=== PATIENT | male | born 1975 | race Caucasian/White ===

== ENCOUNTER 2020-02-09 09:58 | Outpatient (REF) | payer MEDICAID, SELFPAY | END 2020-02-09 09:59 | disposition home or self-care (01) | LOC: HO.LAB 09:58 | PROVIDERS: PCP Internal Medicine; Visit Provider Internal Medicine | DX: Z20.828 Contact with and (suspected) exposure to other viral communicable diseases (principal) | CPT/HCPCS: C9803; U0003 ==

== ENCOUNTER 2021-05-22 04:35 | Emergency (ER) | payer MEDICAID, SELFPAY ==
--- NOTE | 2021-05-22 04:46 | ECG_ITS ---
Test Reason : CHEST PAIN Blood Pressure : / mmHG Vent. Rate : 043 BPM Atrial Rate : 043 BPM P-R Int : 138 ms QRS Dur : 100 ms QT Int : 476 ms P-R-T Axes : 069 055 070 degrees QTc Int : 402 ms Marked sinus bradycardia ST elevation consider inferior injury or acute infarct ACUTE SC / STEMI Consider right ventricular involvement in acute inferior infarct Abnormal ECG No previous ECGs available Referred By: Tiarra Kwong Electronically Signed By:MINAL SMITH
[2021-05-22 04:48] VITALS: BMI 38.0
--- NOTE | 2021-05-22 04:58 | PC.NURSE ---
CALL OUT TO [facility] CRISIS MENTAL HEALTH THERAPIST @[id number]
[2021-05-22] MEDS: Heparin Sodium,Porcine 5,000 UNIT/ML VIAL 4000 UNIT IVPUSH (05:03)
[2021-05-22] MEDS: Aspirin Enteric Coated 81 MG TABLET.DR 324 MG PO (05:04)
[2021-05-22 05:05] VITALS: BP 172/95; PULSE 54; RESP 18
[2021-05-22 05:05] LABS: MANUAL DIFF FLAG NO
[2021-05-22 05:06] LABS: Basophils Absolute Auto 0.1 X10*3/uL (0.0-0.2); Basophils Percent Auto 1.1 % (0-2); Eosinophils Absolute Auto 0.3 X10*3/uL (0.0-0.4); Eosinophils Percent Auto 3.1 % (0-4); Hemoglobin 14.9 g/dl (14.0-18.0); Imm Gran Abs Auto 0.04 X10*3/uL (0.00-0.03); Imm Gran Pct Auto 0.4 % (0.0-0.4); Lymphocytes Absolute Auto 3.5 X10*3/uL (1.2-4.9); Lymphocytes Percent Auto 32.9 % (20-40); Mean Corpuscular HGB Conc 33.1 g/dl (31.0-36.0); Mean Corpuscular Hemoglobin 31.8 pg (27.0-33.0); Mean Corpuscular Volume 96.2 fL (80.0-98.0); Monocytes Absolute Auto 0.9 X10*3/uL (0.1-1.2); Monocytes Percent Auto 8.1 % (2-11); Neutrophils Absolute Auto 5.7 x10*3/uL (2.0-8.3); Neutrophils Percent Auto 54.4 % (45-73); Platelet Count 376 X10*3/uL (160-400); Red Blood Count 4.68 X10*6/uL (4.60-5.80); White Blood Count 10.5 X10*3/uL (4.8-10.8)
--- NOTE | 2021-05-22 05:08 | ED_ITS ---
HPI - Chest Pain General Chief Complaint: Chest Pain Stated Complaint: chest pain Time Seen by Provider: 05/22/21 04:46 Source: patient and family (Spouse) Mode of arrival: ambulatory Limitations: no limitations History of Present Illness HPI narrative: 45-year-old male history of hypertension use propanolol and lisinopril for high blood pressure, woke up at 04:30 with severe mid chest pain radiating to his left shoulder pain is intermittent, described as moderate 7/10, intermittent, nothing aggravate the pain or relieves the pain, no difficulty breathing with the, patient admitted to occasional use of cocaine last time was a week ago but nothing recently. No family history of heart attacks. Patient also had some epigastric chest pain thought to be his GERD symptoms, patient was evaluated by his PCP had a normal EKG. On arrival to the ED patient had an EKG indicating ST elevation ID in the inferior leads, patient was given aspirin/bolus of heparin/Brilinta. Patient has 1/10 chest pain now, no shortness of breath. The case was discussed with Dr. Vera who activated the cardiac catheterization at [facility] patient is getting ready to be transferred to cardiac catheterization at [facility]. Related Data Allergies Allergy/AdvReac Type Severity Reaction Status Date / Time No Known Allergies Allergy Unverified 09/07/20 15:05 [No Known Allergies*] Review of Systems Review of Systems: All other systems are reviewed and are negative Constitutional: Reports as per HPI and Reports no additional constitutional complaints Eyes: Reports as per HPI and Reports no additional eye complaints Reports system reviewed and no additional complaints, except as documented Cardiovascular: Reports as per HPI and Reports no additional cardiovascular co mplaints Respiratory: Reports as per HPI and Reports no additional respiratory complaints Gastrointestinal: Reports as per HPI and Reports no additional gastrointestinal complaints Genitourinary: Reports no additional female genitourinary complaints Musculoskeletal: Reports no additional musculoskeletal complaints Skin/Breast: Reports system reviewed and no additional complaints, except as docu Psychiatric: Reports no additional psychiatric complaints Endocrine: Reports no additional endocrine complaints Hematologic/Lymphatic: Reports no additional hematologic/lymphatic complaints Allergic/Immunologic: Reports no additional allergic/immunologic complaints Reports system reviewed and no additional complaints, except as documented and Reports Abnormal speech present [facility] Social History Social History Advance Directives: No Physical Exam Vital Signs: Vital Signs: Last Vital Signs Temp 97.3 F 05/22/21 05:10 Pulse 51 05/22/21 05:10 Resp 51 H 05/22/21 05:10 BP 174/90 H 05/22/21 05:10 Pulse Ox 97 05/22/21 05:10 BMI result Body Mass Index 38.0 Vital signs have been reviewed as appeared to be correct. Blood pressure elevated. Heart rate bradycardia. Respiration rate normal. Temperature normal. Oxygen saturation normal. Appearance: Alert. Oriented X3. No acute distress. Anxious Head: Normal external exam. Normocephalic. Atraumatic. No Gerard signs noted. No raccoon eyes noted Eyes: PERRLA. EOMI. Conjunctiva and sclera normal. Eyelids normal. ENT: TM's Normal. Pharynx normal. Uvula midline. Moist mucous membranes. No trismus noted. No drooling noted. No muffled voice noted. Neck: Normal inspection. Neck supple. FROM. No adenopathy. Thyroid Normal. No meningeal signs. No neck mass noted. CVS: Normal heart rate and rhythm. Heart sound normal. No murmurs noted. Pulses normal throughout. Respiratory: No respiratory distress. Painless inspiration. Breath sounds normal. No wheezes/rales/rhonchi noted. Chest nontender. No accessory muscle usage noted or decreased air movement noted. Abdomen: Soft and nontender. Bowel sounds normal in all 4 quadrants. No distention noted. No organomegaly noted. No visible injury noted. Back: No CVA tenderness. Full range of motion noted. Skin: Skin warm and dry. Normal skin color. Normal skin turgor. No rashes/lesions/lacerations noted. Extremities: No lower extremity edema. Extremities exhibit normal range of motion. Extremities nontender. Neuro: Oriented X 3. Cranial nerve exam: II-XII are grossly intact No motor deficit. No sensory deficit. Reflexes normal. Course Course Course Narrative: Assessment and plan. Acute STEMI, received aspirin, heparin, Brilinta, patient has been accepted to cardiac catheterization at [facility]. Patient at the transfer has 1/10 chest pain. Reevaluation(s) Reevaluation #1: Leaving the emergency department now to the cardiac catheterization at [facility] Time: 05:20 MDM - Chest Pain Lab Data Result diagrams: 05/22/21 04:59 05/22/21 04:59 Labs: Lab Results 05/22/21 Range/Units 04:59 WBC 10.5 (4.8-10.8) X10*3/uL RBC 4.68 (4.60-5.80) X10*6/uL Hgb 14.9 (14.0-18.0) g/dl Hct 45.0 (42.0-52.0) % MCV 96.2 (80.0-98.0) fL MCH 31.8 (27.0-33.0) pg MCHC 33.1 (31.0-36.0) g/dl RDW 13.0 (11.0-16.0) % Plt Count 376 (160-400) X10*3/uL MPV 11.0 (9.4-12.4) fL Immature Gran % (Auto) 0.4 (0.0-0.4) % Neut % (Auto) 54.4 (45-73) % Lymph % (Auto) 32.9 (20-40) % [place] % (Auto) 8.1 (2-11) % Eos % (Auto) 3.1 (0-4) % Baso % (Auto) 1.1 (0-2) % Lymph # (Auto) 3.5 (1.2-4.9) X10*3/uL [place] # (Auto) 0.9 (0.1-1.2) X10*3/uL Eos # (Auto) 0.3 (0.0-0.4) X10*3/uL Baso # (Auto) 0.1 (0.0-0.2) X10*3/uL Abs Immat Gran (auto) 0.04 H (0.00-0.03) X10*3/uL Absolute Neuts (auto) 5.7 (2.0-8.3) x10*3/uL Absolute Nucleated RBC 0.000 (0.0-0.012) X10*3/uL Nucleated RBC % (auto) 0.0 (0.0-0.2) /100WBC Critical Care Time Critical Care Time Critical Care Time: Yes Total Critical Care Time: 45 Attestation: I spent 45 minutes providing critical care service to the patient, this including time spent at the bedside to evaluate the patient, reassess the patient, monitoring vital signs, review labs, and radiographic studies, counseling the patient/family, discussing the case with consultants, disposition the patient. Discharge Plan Discharge Clinical Impression: Chest pain, ST elevation myocardial infarction (STEMI) Patient Disposition: [facility] Transfer Details: To the cardiac catheterization at [facility].
[2021-05-22] MEDS: Ticagrelor 90 MG TABLET 180 MG PO (05:09)
[2021-05-22 05:10] VITALS: BP 174/90; PULSE 51; RESP 51; TEMP 36.3; O2SAT 97
[2021-05-22 05:12] VITALS: PULSE 50
--- NOTE | 2021-05-22 05:14 | PC.NURSE ---
came in with midsternal chest pain, started this morning. Now radiating to left arm. Diffuse pressure / numbness, occasional sweating. Plan for immediate transfer [place] [facility] [place]. Patient alert and oriented. Patient report chest pressure improved. HR 50's - SB - with noted ST elevation.
--- NOTE | 2021-05-22 05:21 | PC.NURSE ---
Jayy presented to the ED via the waiting room for evaluation of chest pain, on and off x 1 day. The pt states he chalked it up to GERD, but when he woke at 0400 to void when I got back in bed that's when I really felt it. Pt ambulated from waiting room into bed 9. he appeared pale/wells, skin warm and dry. He was alert, oriented x 3, calm and cooperative although admittedly anxious. On arrival to ED he describes his chest pain as mild , mid-sternal with some radiation to the left side of his chest and his left arm. He states that prior to arrival he experienced nausea and I stuck my finger down my throat relieving his nausea. Respirations spontaneous, non-labored, he denies SOB, room air sat's 95% (2L NC given). IV access x 2 obtained, ordered meds administered. Pt was immediately placed on all bedside monitors, as well as defibrillation pads. BALDEMAR AMANDA was to bedside STAT. Pt left ED at this time (0515) via ambulance en route to [facility].
[2021-05-22 05:29] LABS: Alanine Aminotransferase 32 U/L (0-40); Albumin Level 4.9 g/dL (3.5-5.0); Alkaline Phosphatase 68 U/L (39-117); Anion Gap 13 (12-20); Aspartate Amino Transferase 25 U/L (5-37); Bilirubin Direct 0.2 mg/dL (0.0-0.5); Bilirubin Total 0.5 mg/dL (0.0-1.0); Blood Urea Nitrogen 21 mg/dL (9-16); Calcium 10.8 mg/dL (8.4-10.2); Carbon Dioxide 27 mmol/L (22-29); Chloride 100 mmol/L (96-108); Creatinine Clr Calc Pharmacy 91.5; Estimated Glomerular Filt Rate > 60; Glucose Random 165 mg/dL (60-115); Lipase 71 U/L (8-78); Sodium 136 mmol/L (135-145); Total Protein 8.4 g/dL (6.5-8.0)
[2021-05-22 05:30] LABS: B Type Natriuretic Peptide 11 pg/mL (<100)
--- NOTE | 2021-05-22 05:30 | PC.NURSE ---
I attempted to call a nursing report to laboratory development technician at [facility] regarding this patient unsuccessfully. I spoke with the refinery operator light ends recovery who transferred me to laboratory development technician but there was no answer. i tried this twice unsuccessfully. Roro de la rosa RN aware.
[2021-05-22 05:35] LABS: D Dimer High Sensitivity < 150 NG/ML
== END 2021-05-22 05:15 | disposition short-term general hospital (02) ==
PROVIDERS: Emergency Provider Emergency Medicine; PCP Internal Medicine
DX: R07.9 Chest pain, unspecified (principal); I21.3 ST elevation (STEMI) myocardial infarction of unspecified site; I10 Essential (primary) hypertension
CPT/HCPCS: 36415; 80048; 80076; 83690; 83880; 84484; 85025; 85379; 93005; 96374; 99285; 99291

== ENCOUNTER → 2021-06-05 14:43 | Outpatient (BNVA) | payer MEDICAID, SELFPAY | PROVIDERS: PCP Internal Medicine; Referring Provider Internal Medicine; Visit Provider Internal Medicine Cardiovascular Disease | DX: I21.9 Acute myocardial infarction, unspecified (principal); I25.10 Atherosclerotic heart disease of native coronary artery without angina pectoris; Z79.82 Long term (current) use of aspirin; Z79.899 Other long term (current) drug therapy; Z98.61 Coronary angioplasty status | CPT/HCPCS: 99212 ==

== ENCOUNTER → 2021-10-16 15:20 | Outpatient (BNVA) | payer MEDICAID, SELFPAY | PROVIDERS: PCP Internal Medicine; Referring Provider Internal Medicine; Visit Provider Internal Medicine Cardiovascular Disease | DX: I20.8 Other forms of angina pectoris (principal); E78.5 Hyperlipidemia, unspecified; I25.2 Old myocardial infarction; Z79.82 Long term (current) use of aspirin; Z79.899 Other long term (current) drug therapy | CPT/HCPCS: 99212 ==

== ENCOUNTER → 2022-05-15 14:00 | Outpatient (BNVA) | payer MEDICAID, SELFPAY | PROVIDERS: PCP Internal Medicine; Referring Provider Internal Medicine; Visit Provider Internal Medicine Cardiovascular Disease | DX: I20.8 Other forms of angina pectoris (principal); E78.5 Hyperlipidemia, unspecified | CPT/HCPCS: 93005; 99212 ==

== ENCOUNTER 2022-09-08 13:50 | Outpatient (REF) | payer MEDICAID, SELFPAY ==
--- NOTE | ~2022-09-08 | XR_ITS ---
EXAMINATION: XR SHOULDER, LEFT CLINICAL INFORMATION: Pain COMPARISON: None available. TECHNIQUE: AP external rotation, Grashey, scapular Y, and axillary views of the left shoulder. FINDINGS: Mild degeneration AC joint. Glenohumeral joint appears intact. No soft tissue calcifications. The scaphoid clavicular abnormality. XR/XR shoulder LT min 2V IMPRESSION: Mild degeneration AC joint.
== END 2022-09-08 13:51 | disposition home or self-care (01) ==
LOC: HO.XRAY 13:50
PROVIDERS: PCP Internal Medicine; Visit Provider Internal Medicine
DX: M25.512 Pain in left shoulder (principal)
CPT/HCPCS: 73030

== ENCOUNTER 2022-10-01 16:00 | Outpatient (RCR) | payer MEDICAID, SELFPAY | END 2022-10-08 16:25 | disposition home or self-care (01) | LOC: HO.PTCHIC 16:00 | PROVIDERS: PCP Internal Medicine; Visit Provider Student in an Organized Health Care Education/Training Program | DX: M25.512 Pain in left shoulder (principal); G89.29 Other chronic pain | CPT/HCPCS: 97110; 97161 ==

== ENCOUNTER 2022-10-29 15:37 | Outpatient (AMB) | payer MEDICAID, SELFPAY ==
--- NOTE | 2022-10-29 15:59 | A.OFFVIS_ITS ---
Intake Vital Signs 10/29/22 16:00 Height 5 ft 4 in Weight 197 lb 1.492 oz BMI 33.8 BP 112/80 Blood Pressure Location Lt brachial Position Sitting Pulse 62 Pulse Source Pulse Oximeter Intake Visit Reasons: 6 month follow up Intake Note: 6 month follow up. Substance Abuse Counselor Required: No Accompanied by: Self / Same As Patient Allergies No Known Allergies [No Known Allergies*] Allergy (Verified 10/29/22 16:03) Medication List - Last Reconciled 10/29/22 by Jong Vera MD aspirin 81 mg PO DAILY atorvastatin 80 mg PO BEDTIME azelastine 2 sprays intranasal BID fenofibrate micronized 130 mg PO QAM fexofenadine 180 mg PO DAILY fluticasone propionate 50 mcg/actuation 1 spray intranasal DAILY ketotifen fumarate 0.025%(0.035%) 2 drps ophthalmic (eye) DAILY lisinopril-hydrochlorothiazide 20-12.5 mg 1 tab PO QAM metoprolol succinate ER 100 mg PO QAM pantoprazole 40 mg PO DAILY ticagrelor (Brilinta) 90 mg PO BID HPI HPI Comments History of Present Illness Details Pleasant 46-year-old gentleman here for follow-up. He was seen on May 22, 2021 when he presented with inferior wall TX to [facility]. He was taken for emergent cardiac catheterization where we found 100% occlusion of the right coronary artery which was treated with drug-eluting stent s. He did not have any residual disease in the LAD or LCX. He has done well since then. He has no chest pain or shortness of breath. He was using cocaine before but since the procedure he has stopped using it. He also has stop smoking. He had some nosebleeds but they have improved. He continues to take aspirin and Brilinta. No other bleeding concerns. Taking medications regularly. He has not had any fasting lipid panel since February 2019. At that time his LDL was 141, his total cholesterol was 237 and triglycerides were 328. His HDL was 31. 10/29/2022: He returns for follow-up. He has completed 1 year home ticagrelor and he is currently taking aspirin only he denies chest pain or shortness of breath. He is smoking 6 few cigarettes a day and is see history thinking about quitlatoya g. Blood pressure control in the office is good. Tolerating medications well. [facility] Medical History (Updated 10/16/21 @ 15:44 by Jong Vera MD) Hyperlipidemia Surgical History History of cardiac cath History of cholecystectomy Family History Mother Lung disease Father Lung disease Social History Alcohol intake: former Year quit: 2021 Patient Tobacco Use Status: Former Tobacco user Quit Date: 2021 Years Smoked: 30 +/- Substance Use Type: Crack/Cocaine Review of Systems Const Denies weakness ENT Denies dizziness Card Denies chest pain, Denies chest pain with activity, Denies syncope, Denies rapid heart rate, Denies pedal edema, Denies edema, Denies leg edema, Denies lightheadedness, Denies palpitations, Denies dyspnea, Denies dyspnea on exertion and Denies orthopnea Resp Denies cough, Denies dyspnea and Denies dyspnea on exertion GI Denies hematochezia and Denies change in stool character Musc Denies abnormal gait, Denies muscle cramps, Denies muscle weakness, Denies numbness, Denies radiating pain into limb and Denies tingling Neuro Denies abnormal gait, Denies dizziness, Denies syncope, Denies numbness, Denies tingling and Denies weakness Endo Denies palpitations Physical Exam Vital Signs: Last Vital Signs Pulse 62 10/29/22 16:00 BP 112/80 10/29/22 16:00 BMI result Body Mass Index 33.8 GENERAL APPEARANCE: in no acute distress, pleasant. NECK: no carotid bruit, no jugular venous distention. SKIN: no suspicious lesions, warm and dry. HEART: no murmurs, regular rate and rhythm. LUNGS: clear to auscultation bilaterally. ABDOMEN: soft, nontender. EXTREMITIES: no edema. PERIPHERAL PULSES: equal. NEUROLOGIC: No gross deficits, AAO X 3 Assessment & Plan Assessment & Plan (1) Stable angina: Code(s): I20.8 - Other forms of angina pectoris Plan Pleasant 46-year-old gentleman who is here for follow-up. He had NSTEMI with PCI. He is off Ticagrelorl at this stage. Continue aspirin. Clinically stable and can see us back in few months. Thank you for allowing me to participate in the care of your patient. Please feel free to contact me if you have any questions. Coding Level of Care Code Est Pt Level 3 (80926) Diagnoses Stable angina I20.8
[2022-10-29 16:00] VITALS: BP 112/80; PULSE 62; BMI 33.8
== END 2022-10-29 16:17 | disposition home or self-care (01) ==
PROVIDERS: Visit Provider Internal Medicine Cardiovascular Disease
DX: I20.8 Other forms of angina pectoris (principal)
CPT/HCPCS: 99213

== ENCOUNTER → 2022-10-29 15:37 | Outpatient (BNVA) | payer MEDICAID, SELFPAY | PROVIDERS: Visit Provider Internal Medicine Cardiovascular Disease | DX: I20.8 Other forms of angina pectoris (principal); I25.2 Old myocardial infarction; Z79.82 Long term (current) use of aspirin | CPT/HCPCS: 99212 ==

== ENCOUNTER 2022-11-11 10:35 | Outpatient (REF) | payer MEDICAID, SELFPAY ==
[2022-11-11 15:55] LABS: Anion Gap 12 (12-20); Blood Urea Nitrogen 16 mg/dL (9-16); Calcium 10.5 mg/dL (8.4-10.2); Carbon Dioxide 28 mmol/L (22-29); Chloride 105 mmol/L (96-108); Cholesterol 239 mg/dL (<200); Estimated Glomerular Filt Rate > 60; Glucose Fasting 95 mg/dL (60-99); HDL Cholesterol 35 mg/dL (>40); LDL Cholesterol Calculated 161 mg/dL (<100); Potassium 3.7 mmol/L (3.3-5.1); Sodium 141 mmol/L (135-145); Triglycerides 215 mg/dL (<150)
[2022-11-11 16:15] LABS: Prostate Specific Antigen 1.61 ng/mL (<0.05-4.0)
[2022-11-12 07:28] LABS: Prolactin 5.9 ng/mL (2.0-18.0)
[2022-11-15 17:23] LABS: Testosterone, Free 54.2 pg/mL (35.0-155.0); Testosterone, Total 390 ng/dL (250-1100)
== END 2022-11-11 10:36 | disposition home or self-care (01) ==
LOC: HO.CHCLDS 10:35
PROVIDERS: Visit Provider Internal Medicine
DX: E78.2 Mixed hyperlipidemia (principal); N52.8 Other male erectile dysfunction; M25.512 Pain in left shoulder
CPT/HCPCS: 36415; 80048; 80061; 84146; 84153; 84402; 84403; 99202

== ENCOUNTER 2022-11-11 14:49 | Outpatient (AMB) | payer MEDICAID, SELFPAY ==
--- NOTE | 2022-11-11 14:56 | A.OFFVIS_ITS ---
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 Patient describes his pain as sharp and severe in nature. Most of the pain is along the lateral aspect of his left shoulder. He did injure his left shoulder several years ago while lifting heavy object. Since that time he has had difficulty lifting his left hand above shoulder height. He has done physical therapy for 12 weeks over the last 6 months which aggravated his pain. He has also tried Tylenol and anti-inflammatory medicines which gave him minimal relief. He has had injections in the past which gave him no relief. Allergies No Known Allergies [No Known Allergies*] Allergy (Verified 11/11/22 15:12) Medication List - Last Reconciled 11/12/22 by Yuri Genao MD aspirin 81 mg PO DAILY atorvastatin 80 mg PO BEDTIME azelastine 2 sprays intranasal BID fenofibrate micronized 130 mg PO QAM fexofenadine 180 mg PO DAILY fluticasone propionate 50 mcg/actuation 1 spray intranasal DAILY ketotifen fumarate 0.025%(0.035%) 2 drps ophthalmic (eye) DAILY lisinopril-hydrochlorothiazide 20-12.5 mg 1 tab PO QAM metoprolol succinate ER 100 mg PO QAM pantoprazole 40 mg PO DAILY [facility] Medical History (Updated 11/11/22 @ 15:30 by Yuri Genao MD) Hyperlipidemia Surgical History History of cholecystectomy History of cardiac cath Family History Mother Lung disease Father Lung disease Social History (Updated 11/11/22 @ 14:59 by GIGI Burris) Alcohol intake: former Year quit: 2021 Patient Tobacco Use Status: Current everyday Tobacco user Years Smoked: 30 +/- Substance Use Type: Crack/Cocaine Current occupational status: employed 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 Physical Exam Vital Signs: BMI result Body Mass Index 33.8 Const Other: Well-nourished well-developed very friendly male awake alert and oriented x3 in no acute distress Extrem Other: Bilateral upper extremity examination shows good capillary refill, no skin lesions noted, normal sensation light touch Left shoulder examination shows decreased range of motion when compared to his right shoulder, 4/5 strength with supraspinatus testing, positive impingement signs, tenderness over his acromioclavicular joint, no instability Results Reviewed Results Reviewed: X-rays of the patient's left shoulder show severe acromioclavicular joint narrowing, a type 3 acromion, no acute bony abnormalities Assessment & Plan Assessment & Plan (1) Left shoulder pain: Code(s): M25.512 - Pain in left shoulder Plan: Mr. Ortez presents with progressively worsening left shoulder pain and weakness due to impingement syndrome as well as possible full-thickness rotator cuff tearing. Thus, I will send him for an MRI of his left shoulder for further evaluation. If he does have a full-thickness tear I will recommend surgical repair to optimize his future functional level. I will see him back once the MRI is completed. Feel free to call me at any time should questions regarding his orthopedic management arise. Thank you very much for asking me to see this very friendly gentleman. I spent 22 minutes in reviewing the patient's records and imaging studies, seeing the patient and documenting in the medical record. Orders: Orders MR shoulder LT wo con 11/11/22 M25.512 - Pain in left shoulder Coding Level of Care Code New Pt Level 2 (42929) Diagnoses Left shoulder pain M25.512
[2022-11-11 15:07] VITALS: BMI 33.8
== END 2022-11-11 15:21 | disposition home or self-care (01) ==
PROVIDERS: PCP Internal Medicine; Visit Provider Orthopaedic Surgery
DX: M25.512 Pain in left shoulder (principal)
CPT/HCPCS: 99202

== ENCOUNTER 2022-11-18 17:18 | Outpatient (REF) | payer MEDICAID, SELFPAY | END 2022-11-18 17:19 | disposition home or self-care (01) | LOC: HO.MRI 17:18 | PROVIDERS: PCP Internal Medicine; Visit Provider Orthopaedic Surgery | DX: Z13.89 Encounter for screening for other disorder (principal) ==

== ENCOUNTER 2022-12-16 19:48 | Outpatient (REF) | payer MEDICAID, SELFPAY | END 2022-12-16 19:49 | disposition home or self-care (01) | LOC: HO.MRI 19:48 | PROVIDERS: PCP Internal Medicine; Visit Provider Orthopaedic Surgery | DX: Z13.89 Encounter for screening for other disorder (principal) ==

== ENCOUNTER 2022-12-17 15:23 | Outpatient (REF) | payer MEDICAID, SELFPAY ==
--- NOTE | ~2022-12-17 | XR_ITS ---
EXAMINATION: XR FEMUR, RIGHT CLINICAL INFORMATION: Question of a metallic fragment prior to MRI COMPARISON: None available. TECHNIQUE: AP and lateral views of the right femur were obtained. FINDINGS: The bones and soft tissues are unremarkable aside from a metallic fragment measuring 6 mm in the medial tissues of the upper thigh about 16 cm from the top of the femoral head. No fractures or bony destructive lesions. XR/XR femur RT 2V IMPRESSION: Metallic fragment in the medial tissues of the upper thigh.
== END 2022-12-17 15:24 | disposition home or self-care (01) ==
LOC: HO.XRAY 15:23
PROVIDERS: PCP Internal Medicine; Visit Provider Physician Assistant Surgical
DX: Z13.89 Encounter for screening for other disorder (principal)
CPT/HCPCS: 73552

== ENCOUNTER 2022-12-18 16:57 | Outpatient (REF) | payer MEDICAID, SELFPAY ==
--- NOTE | ~2022-12-18 | MR_ITS ---
EXAMINATION: MR SHOULDER WITHOUT CONTRAST, LEFT CLINICAL INFORMATION: Left shoulder pain. COMPARISON: None available. TECHNIQUE: MR images of the shoulder were obtained on a 1.5 Nancy high-field strength scanner without intravenous contrast material. Examination was terminated by the patient prior to completion due to claustrophobia. FINDINGS: ROTATOR CUFF: There is an insertional partial- thickness tear of the supraspinatus tendon measuring 0.8 cm AP and 0.7 cm in thickness, likely interstitial. Perforation of the articular-sided fibers is possible, though not favored. Moderate supraspinatus and subscapularis tendinosis. There is an insertional partial-thickness tear of the subscapularis tendon at the lesser tuberosity measuring 0.7 x 0.8 cm (craniocaudal x longitudinal). No additional rotator cuff tears are identified, though sensitivity is limited by the absence of coronal T2 fat-saturated images. No muscle atrophy or fatty infiltration. BICEPS: Normal. CORACOACROMIAL ARCH: The undersurface of the acromion is flat with no subacromial spur. There is moderate acromioclavicular osteoarthritis with chronic distal clavicular osteolysis and significant periarticular edema signal. No significant subacromial subdeltoid bursal fluid. LABRUM/CAPSULE: A small focal labral tear is suspected at the posterior 9 o'clock position. Sensitivity and specificity for labral tears is limited by the absence of coronal T2 fat-saturated images. Joint capsule appears normal in thickness and signal intensity. GLENOHUMERAL JOINT/MARROW: Articular cartilage appears well preserved. No fracture or malalignment. No joint effusion. MR/MR shoulder LT wo con IMPRESSION: 1. Moderate supraspinatus and subscapularis tendinosis with small 0.8 cm insertional partial tears of both tendons. No tendon retraction or muscle atrophy. 2. 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 3. Small focal tear of the posterior labrum. Sensitivity and specificity for labral tears is limited by the absence of coronal T2 fat-saturated images. The patient terminated the study prior to completion due to claustrophobia. If warranted clinically, the patient can return for completion of this study with anxiolytics.
== END 2022-12-18 16:58 | disposition home or self-care (01) ==
LOC: HO.MRI 16:57
PROVIDERS: PCP Internal Medicine; Visit Provider Orthopaedic Surgery
DX: M25.512 Pain in left shoulder (principal)
CPT/HCPCS: 73221

== ENCOUNTER 2022-12-24 14:35 | Outpatient (AMB) | payer MEDICAID, SELFPAY ==
--- NOTE | 2022-12-24 14:56 | MHC.OFFVIS ---
Intake Intake Visit Reasons: OV - Left Shoulder MRI Review Intake Note: Jayy is a 46 year old -- hand dominant male who presents today for an MRI review of his left shoulder. The patient describes his left shoulder pain as achy in nature. He continues with his home stretching program. He denies any weakness. Allergies No Known Allergies [No Known Allergies*] Allergy (Verified 11/11/22 15:12) Medication List - Last Reconciled 12/25/22 by Yuri Genao MD aspirin 81 mg PO DAILY atorvastatin 80 mg PO BEDTIME azelastine 2 sprays intranasal BID fenofibrate micronized 130 mg PO QAM fexofenadine 180 mg PO DAILY fluticasone propionate 50 mcg/actuation 1 spray intranasal DAILY ketotifen fumarate 0.025%(0.035%) 2 drps ophthalmic (eye) DAILY lisinopril-hydrochlorothiazide 20-12.5 mg 1 tab PO QAM lorazepam (Ativan) 1 mg PO DAILY metoprolol succinate ER 100 mg PO QAM pantoprazole 40 mg PO DAILY [facility] Medical History (Updated 11/11/22 @ 15:30 by Yuri Genao MD) Hyperlipidemia Surgical History History of cholecystectomy History of cardiac cath Family History Mother Lung disease Father Lung disease Social History (Updated 11/11/22 @ 14:59 by GIGI Burris) Alcohol intake: former Year quit: 2021 Patient Tobacco Use Status: Current everyday Tobacco user Years Smoked: 30 +/- Substance Use Type: Crack/Cocaine Current occupational status: employed 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 Physical Exam Const Other: Well-nourished well-developed very friendly male awake alert and oriented x3 in no acute distress Extrem Other: Bilateral upper extremity examination shows good capillary refill, no skin lesions noted, normal sensation light touch Left shoulder examination shows full range of motion when compared to his right shoulder, 5/5 strength with supraspinatus testing, positive impingement signs, tenderness over his acromioclavicular joint, no instability Results Reviewed Results Reviewed: MRI of the patient's left shoulder shows severe acromioclavicular joint narrowing, a type 2 acromion, signal change within the supraspinatus tendon most likely due to rotator cuff tendinosis Assessment & Plan Assessment & Plan (1) Left shoulder pain: Code(s): M25.512 - Pain in left shoulder Plan Mr. Ortez presents with left shoulder pain due to impingement syndrome and rotator cuff tendinosis. I had a lengthy discussion with the patient regarding the treatment options. At this point the patient's symptoms are tolerable to him. He will continue with his activity modifications. He will follow up with me on an as-needed basis should his symptoms worsen in any way. Feel free to call me at any time should questions regarding his orthopedic management arise. I spent 22 minutes in reviewing the patient's records and imaging studies, seeing the patient and documenting in the medical record. Coding Level of Care Code Est Pt Level 2 (16862) Diagnoses Left shoulder pain M25.512
== END 2022-12-24 15:24 | disposition home or self-care (01) ==
PROVIDERS: PCP Internal Medicine; Visit Provider Orthopaedic Surgery
DX: M25.512 Pain in left shoulder (principal)
CPT/HCPCS: 99212

== ENCOUNTER → 2022-12-24 14:35 | Outpatient (BNVA) | payer MEDICAID, SELFPAY | PROVIDERS: PCP Internal Medicine; Visit Provider Orthopaedic Surgery | DX: M75.42 Impingement syndrome of left shoulder (principal); M75.82 Other shoulder lesions, left shoulder | CPT/HCPCS: 99212 ==

== ENCOUNTER 2023-05-11 15:26 | Outpatient (AMB) | payer MEDICAID, SELFPAY ==
[2023-05-11 15:35] VITALS: BP 140/70; PULSE 57; BMI 36.0
--- NOTE | 2023-05-11 15:35 | MHC.OFFVIS ---
Intake Vital Signs 05/11/23 15:35 Height 5 ft 4 in Weight 209 lb 14.081 oz BMI 36.0 BP 140/70 H Blood Pressure Location Lt brachial Position Sitting Pulse 57 Intake Visit Reasons: 6M follow up Intake Note: pt its here for his 6mnht f/up/ pt states that he is doing fine. 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 Accompanied by: Self / Same As Patient Allergies No Known Allergies [No Known Allergies*] Allergy (Verified 11/11/22 15:12) Medication List - Last Reconciled 05/11/23 by Jong Vera MD aspirin 81 mg PO DAILY atorvastatin 80 mg PO BEDTIME fenofibrate micronized 130 mg PO QAM fexofenadine 180 mg PO DAILY fluticasone propionate 50 mcg/actuation 1 spray intranasal DAILY ketotifen fumarate 0.025%(0.035%) 2 drps ophthalmic (eye) DAILY lisinopril-hydrochlorothiazide 20-12.5 mg 1 tab PO QAM lorazepam (Ativan) 1 mg PO DAILY metoprolol succinate ER 100 mg PO QAM pantoprazole 40 mg PO DAILY HPI HPI Comments History of Present Illness Details Pleasant 47-year-old gentleman here for follow-up. He was seen on May 22, 2021 when he presented with inferior wall [place] to [facility]. He was taken for emergent cardiac catheterization where we found 100% occlusion of the right coronary artery which was treated with drug-eluting stents. He did not have any residual disease in the LAD or LCX. He has done well since then. He has no chest pain or shortness of breath. He was using cocaine before but since the procedure he has stopped using it. He also has stop smoking. He had some nosebleeds but they have improved. He continues to take aspirin and Brilinta. No other bleeding concerns. Taking medications regularly. He has not had any fasting lipid panel since February 2019. At that time his LDL was 141, his total cholesterol was 237 and triglycerides were 328. His HDL was 31. 10/29/2022: He returns for follow-up. He has completed 1 year home ticagrelor and he is currently taking aspirin only he denies chest pain or shortness of breath. He is smoking 6 few cigarettes a day and is see history thinking about quitting. Blood pressure control in the office is good. Tolerating medications well. 05/11/2023: Returns for follow-up. He has no chest pain or shortness of breath. Blood pressure mildly elevated. Last blood workup was in October 2022 when total cholesterol was 239, LDL 161, HDL 35 and triglycerides 215. He has been on atorvastatin 80 mg and fenofibrate 130 mg daily. No symptoms clinically. He will need repeat lipid panel. 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 Review of Systems Const Denies chills, Denies fatigue, Denies fever(s), Denies frequent falls, Denies weakness, Denies weight gain and Denies weight loss ENT Denies dizziness Card Denies chest pain, Denies leg edema, Denies lightheadedness, Denies palpitations, Denies dyspnea and Denies dyspnea on exertion Resp Denies cough, Denies dyspnea and Denies dyspnea on exertion GI Denies hematochezia Musc Denies abnormal gait, Denies muscle weakness, Denies numbness, Denies radiating pain into limb and Denies tingling Neuro Denies abnormal gait, Denies dizziness, Denies frequent falls, Denies numbness, Denies tingling and Denies weakness Endo Denies fatigue and Denies palpitations Physical Exam Vital Signs: Last Vital Signs Pulse 57 05/11/23 15:35 BP 140/70 H 05/11/23 15:35 BMI result Body Mass Index 36.0 GENERAL APPEARANCE: in no acute distress, pleasant. NECK: no carotid bruit, no jugular venous distention. SKIN: no suspicious lesions, warm and dry. HEART: no murmurs, regular rate and rhythm. LUNGS: clear to auscultation bilaterally. ABDOMEN: soft, nontender. EXTREMITIES: no edema. PERIPHERAL PULSES: equal. NEUROLOGIC: No gross deficits, AAO X 3 Office Procedures EKG Details: Sinus bradycardia 57 beats per minute, inferior infarct, QTC 420 milliseconds. 13154-[id number], Complete Assessment & Plan Assessment & Plan (1) Hyperlipidemia: Code(s): E78.5 - Hyperlipidemia, unspecified (2) Stable angina: Code(s): I20.8 - Other forms of angina pectoris Plan [age] gentleman who is here for follow-up. He has history of inferior wall [place] and underwent primary PCI with 2 overlapping drug-eluting stents. He is on aspirin currently. He is taking atorvastatin and fenofibrate 130 mg daily. Recommend repeating a fasting lipid panel. If LDL cholesterol is not 70 or below then he needs ezetimibe added to his regimen. Blood pressure is mildly elevated. This can be monitored and medications can be adjusted accordingly. Would recommend increasing the lisinopril hydrochlorothiazide combination to b.i.d. in case his blood pressure continues to be elevated. Follow-up with us in 6 months. Thank you for allowing me to participate in the care of your patient. Please feel free to contact me if you have any questions. Orders: Orders Lipid Panel Today E78.5 - Hyperlipidemia, unspecified Coding Level of Care Code Est Pt Level 4 (08224) Diagnoses Hyperlipidemia E78.5 Stable angina I20.8 CPT Codes EKG - CPT: 22845-Wsevkjwutkmwywirx, Complete ([id number])
== END 2023-05-11 15:54 | disposition home or self-care (01) ==
PROVIDERS: PCP Internal Medicine; Visit Provider Internal Medicine Cardiovascular Disease
DX: E78.5 Hyperlipidemia, unspecified (principal); I20.89 Other forms of angina pectoris
CPT/HCPCS: 93010; 99214

== ENCOUNTER → 2023-05-11 15:26 | Outpatient (BNVA) | payer MEDICAID, SELFPAY | PROVIDERS: PCP Internal Medicine; Visit Provider Internal Medicine Cardiovascular Disease | DX: E78.5 Hyperlipidemia, unspecified (principal); I20.89 Other forms of angina pectoris | CPT/HCPCS: 93005; 99212 ==

== ENCOUNTER 2023-07-13 11:21 | Outpatient (AMB) | payer MEDICAID, SELFPAY ==
[2023-07-13 11:22] VITALS: BP 152/74; BMI 35.5
--- NOTE | 2023-07-13 11:22 | A.OFFVIS_ITS ---
Vital Signs 07/13/23 11:22 Height 5 ft 4 in Weight 207 lb BMI 35.5 BP 152/74 H Blood Pressure Location Rt brachial Position Sitting Intake Visit Reasons: Lipoma~ torso Intake Note: This patient presents for a lipoma of the left posterior shoulder. Patient c/o: reports increased in size, reports no pain, reports had several episodes where he feels left elbow twitch, reports no redness. 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 Required: No Accompanied by: Son Allergies No Known Allergies [No Known Allergies*] Allergy (Verified 07/13/23 11:32) Medication List - Last Reconciled 07/13/23 by Apolinar John MD aspirin 81 mg PO DAILY atorvastatin 80 mg PO BEDTIME fenofibrate micronized 130 mg PO QAM fexofenadine 180 mg PO DAILY fluticasone propionate 50 mcg/actuation 1 spray intranasal DAILY ketotifen fumarate 0.025%(0.035%) 2 drps ophthalmic (eye) DAILY lisinopril-hydrochlorothiazide 20-12.5 mg 1 tab PO QAM lorazepam (Ativan) 1 mg PO DAILY metoprolol succinate ER 100 mg PO QAM pantoprazole 40 mg PO DAILY HPI HPI Lipoma~ torso: Details: 47-year-old male referred for a lipoma. He says that he has had this lump on his left shoulder for over 10 years. He describes some increased in size. He denies any pain or skin changes. He denies any drainage. His history is significant for an CA 2 years ago. He said he had stents placed at that time. He has no longer on antiplatelets or anticoagulants. 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 Review of Systems Const Denies chills and Denies fever(s) Card Denies chest pain, Denies dyspnea and Denies dyspnea on exertion Resp Denies cough, Denies dyspnea and Denies dyspnea on exertion GI Denies hematochezia and Denies change in bowel habits Denies hematuria and Denies difficulty urinating Musc Denies back pain and Denies limited range of motion Neuro Denies focal weakness and Denies convulsions Psych Denies depression and Denies mood swings Physical Exam Const General: comfortable and no acute distress Orientation/consciousness: patient oriented x3 Neck Neck: Yes no lymphadenopathy Resp Auscultation: clear to auscultation bilaterally Cardio Rhythm: regular rhythm GI Palpation (GI): Soft to palpation, nontender and no guarding Back/Spine/Pelvis Other: Left shoulder with note of a lipomatous mass, about 3 cm, well-defined, skin changes Neuro General: patient oriented x3 Assessment & Plan Assessment & Plan (1) Lipoma of left shoulder: Code(s): D109.13 - Benign lipomatous neoplasm of skin and subcutaneous tissue of left arm Category: Medical Plan: He has a lipoma of the left shoulder and he wants this removed. I explained the technique of excision under local anesthesia. I reviewed the risks including but not limited to bleeding, infections, as well as the benefits and alternatives. Understands what to expect postoperatively. He wants to proceed. This will be scheduled in the office on his next visit. Plan I explained to him the technique of excision. I reviewed the risks including but not limited to bleeding, infections, poor healing, hematoma, recurrence, postop pain, as well as the benefits and alternatives. I also reviewed with him what to expect postoperatively. Coding Level of Care Code New Pt Level 3 (83348) Diagnoses Lipoma of left shoulder D17
== END 2023-07-13 11:42 | disposition home or self-care (01) ==
PROVIDERS: PCP Internal Medicine; Referring Provider Internal Medicine; Visit Provider Surgery
DX: D17.22 Benign lipomatous neoplasm of skin and subcutaneous tissue of left arm (principal)
CPT/HCPCS: 99204

== ENCOUNTER → 2023-07-13 11:21 | Outpatient (BNVA) | payer MEDICAID, SELFPAY | PROVIDERS: PCP Internal Medicine; Referring Provider Internal Medicine; Visit Provider Surgery | DX: D17.22 Benign lipomatous neoplasm of skin and subcutaneous tissue of left arm (principal) | CPT/HCPCS: 99202 ==

== ENCOUNTER 2023-11-11 15:36 | Outpatient (AMB) | payer MEDICAID, SELFPAY ==
[2023-11-11 15:38] VITALS: BP 120/66; PULSE 57; BMI 35.0
--- NOTE | 2023-11-11 15:38 | A.OFFVIS_ITS ---
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 Accompanied by: Self / Same As Patient Allergies No Known Allergies [No Known Allergies*] Allergy (Verified 10/01/23 16:45) Medication List - Last Reconciled 11/11/23 by Jong Vera MD aspirin 81 mg PO DAILY atorvastatin 80 mg PO BEDTIME fenofibrate micronized 130 mg PO QAM fexofenadine 180 mg PO DAILY fluticasone propionate 50 mcg/actuation 1 spray intranasal DAILY ketotifen fumarate 0.025%(0.035%) 2 drps ophthalmic (eye) DAILY lisinopril-hydrochlorothiazide 20-12.5 mg 1 tab PO QAM lorazepam (Ativan) 1 mg PO DAILY metoprolol succinate ER 100 mg PO QAM pantoprazole 40 mg PO DAILY HPI Comments Details: Pleasant 47-year-old gentleman here for follow-up. He was seen on May 22, 2021 when he presented with inferior wall [place] to [facility]. He was taken for emergent cardiac catheterization where we found 100% occlusion of the right coronary artery which was treated with drug-eluting stents. He did not have any residual disease in the LAD or LCX. He has done well since then. He has no chest pain or shortness of breath. He was using cocaine before but since the procedure he has stopped using it. He also has stop smoking. He had some nosebleeds but they have improved. He continues to take aspirin and Brilinta. No other bleeding concerns. Taking medications regularly. He has not had any fasting lipid panel since February 2019. At that time his LDL was 141, his total cholesterol was 237 and triglycerides were 328. His HDL was 31. 10/29/2022: He returns for follow-up. He has completed 1 year home ticagrelor and he is currently taking aspirin only he denies chest pain or shortness of breath. He is smoking 6 few cigarettes a day and is see history thinking about quitting. Blood pressure control in the office is good. Tolerating medications well. 05/11/2023: Returns for follow-up. He has no chest pain or shortness of breath. Blood pressure mildly elevated. Last blood workup was in October 2022 when total cholesterol was 239, LDL 161, HDL 35 and triglycerides 215. He has been on atorvastatin 80 mg and fenofibrate 130 mg daily. No symptoms clinically. He will need repeat lipid panel. 11/11/2023: He returns for follow-up. He is taking atorvastatin 80 mg and fenofibrate 130 mg. His cholesterol was quite high and on last visit we discussed about doing fasting lipid panel but it appears he has not done that. He is denying any chest discomfort shortness of breath. Otherwise taking medications regularly. 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 NECK: no carotid bruit, no jugular venous distention. SKIN: no suspicious lesions, warm and dry. HEART: no murmurs, regular rate and rhythm. LUNGS: clear to auscultation bilaterally. ABDOMEN: soft, nontender. EXTREMITIES: no edema. PERIPHERAL PULSES: equal. NEUROLOGIC: No gross deficits, AAO X 3 Assessment & Plan Assessment & Plan (1) Hyperlipidemia: Code(s): E78.5 - Hyperlipidemia, unspecified Category: Medical (2) Stable angina: Code(s): I20.8 - Other forms of angina pectoris Category: Medical Plan 47-year-old gentleman who is here for follow-up. He has history of inferior wall [place] and underwent primary PCI with 2 overlapping drug-eluting stents. He is on aspirin currently. He is taking atorvastatin and fenofibrate 130 mg daily. Recommend repeating a fasting lipid panel. If LDL cholesterol is not 70 or below then he needs ezetimibe added to his regimen. Blood pressure controlled on follow-up is good. Follow-up in few months. Thank you for allowing me to participate in the care of your patient. Please feel free to contact me if you have any questions. Orders: Orders Lipid Panel Today E78.5 - Hyperlipidemia, unspecified Coding Level of Care Code Est Pt Level 4 (27083) Diagnoses Hyperlipidemia E78.5 Stable angina I20.8
== END 2023-11-11 15:56 | disposition home or self-care (01) ==
PROVIDERS: PCP Internal Medicine; Referring Provider Internal Medicine; Visit Provider Internal Medicine Cardiovascular Disease
DX: E78.5 Hyperlipidemia, unspecified (principal); I20.89 Other forms of angina pectoris
CPT/HCPCS: 99214

== ENCOUNTER → 2023-11-11 15:36 | Outpatient (BNVA) | payer MEDICAID, SELFPAY | PROVIDERS: PCP Internal Medicine; Visit Provider Internal Medicine Cardiovascular Disease | DX: I20.89 Other forms of angina pectoris (principal); E78.5 Hyperlipidemia, unspecified | CPT/HCPCS: 99212 ==

== ENCOUNTER 2023-12-31 08:14 | Outpatient (REF) | payer MEDICAID, SELFPAY ==
[2023-12-31 14:56] LABS: MANUAL DIFF FLAG NO
[2023-12-31 15:02] LABS: Basophils Absolute Auto 0.1 X10*3/uL (0.0-0.2); Basophils Percent Auto 1.6 % (0-2); Eosinophils Absolute Auto 0.3 X10*3/uL (0.0-0.4); Eosinophils Percent Auto 3.1 % (0-4); Hemoglobin 14.1 g/dl (14.0-18.0); Imm Gran Abs Auto 0.03 X10*3/uL (0.00-0.03); Imm Gran Pct Auto 0.3 % (0.0-0.4); Lymphocytes Absolute Auto 2.9 X10*3/uL (1.2-4.9); Lymphocytes Percent Auto 32.7 % (20-40); Mean Corpuscular HGB Conc 33.6 g/dl (31.0-36.0); Mean Corpuscular Hemoglobin 33.3 pg (27.0-33.0); Mean Corpuscular Volume 99.1 fL (80.0-98.0); Mean Platelet Volume 11.5 fL (9.4-12.4); Monocytes Absolute Auto 0.7 X10*3/uL (0.1-1.2); Monocytes Percent Auto 7.4 % (2-11); Neutrophils Absolute Auto 4.9 x10*3/uL (2.0-8.3); Neutrophils Percent Auto 54.9 % (45-73); Platelet Count 356 X10*3/uL (160-400); Red Blood Count 4.24 X10*6/uL (4.60-5.80); Red Cell Distribution Width 13.8 % (11.0-16.0); White Blood Count 8.8 X10*3/uL (4.8-10.8)
[2023-12-31 15:19] LABS: Alanine Aminotransferase 28 U/L (0-40); Albumin Level 4.5 g/dL (3.5-5.0); Alkaline Phosphatase 72 U/L (39-117); Anion Gap 13 (12-20); Aspartate Amino Transferase 40 U/L (5-37); Bilirubin Total 0.8 mg/dL (0.0-1.0); Blood Urea Nitrogen 19 mg/dL (9-16); Calcium 10.4 mg/dL (8.4-10.2); Carbon Dioxide 25 mmol/L (22-29); Chloride 105 mmol/L (96-108); Cholesterol 289 mg/dL (<200); Estimated Glomerular Filt Rate > 60; Glucose Random 98 mg/dL (60-115); HDL Cholesterol 15 mg/dL (>40); Potassium 3.7 mmol/L (3.3-5.1); Sodium 139 mmol/L (135-145); Total Protein 7.9 g/dL (6.5-8.0); Triglycerides 523 mg/dL (<150)
[2023-12-31 15:39] LABS: TSH reflex Free T4 3.02 uIU/mL (0.32-4.0)
[2024-01-02 15:14] LABS: HCV Log PCR <1.18 NOT DETECTED Log IU/mL (NOT DETECTED); HepC Viral Load <15 NOT DETECTED IU/mL (NOT DETECTED)
== END 2023-12-31 08:15 | disposition home or self-care (01) ==
LOC: HO.CHCLDS 08:14
PROVIDERS: PCP Internal Medicine; Referring Provider Internal Medicine Cardiovascular Disease; Visit Provider Internal Medicine
DX: E78.2 Mixed hyperlipidemia (principal); I10 Essential (primary) hypertension
CPT/HCPCS: 36415; 80053; 80061; 84443; 85025; 87522

== ENCOUNTER 2024-03-14 15:22 | Outpatient (AMB) | payer MEDICAID, SELFPAY ==
[2024-03-14 15:28] VITALS: BP 104/70; PULSE 64; BMI 36.8
--- NOTE | 2024-03-14 15:28 | A.OFFVIS_ITS ---
Vital Signs 03/14/24 15:28 Height 5 ft 4 in Weight 214 lb 4.629 oz BMI 36.8 BP 104/70 Blood Pressure Location Lt brachial Position Sitting Pulse 64 Pulse Source Pulse Oximeter Intake Visit Reasons: 4 mth /f/up Intake Note: 4 mth f/up Shipper And Receiving Required: No Accompanied by: Spouse Allergies No Known Allergies [No Known Allergies*] Allergy (Verified 10/01/23 16:45) Medication List - Last Reconciled 03/14/24 by Jong Vera MD aspirin 81 mg PO DAILY atorvastatin 80 mg PO BEDTIME fenofibrate micronized 130 mg PO QAM fexofenadine 180 mg PO DAILY fluticasone propionate 50 mcg/actuation 1 spray intranasal DAILY ketotifen fumarate 0.025%(0.035%) 2 drps ophthalmic (eye) DAILY lisinopril-hydrochlorothiazide 20-12.5 mg 1 tab PO QAM metoprolol succinate ER 100 mg PO QAM pantoprazole 40 mg PO DAILY varenicline 0.5 mg PO BID HPI Comments Details: Pleasant 48-year-old gentleman here for follow-up. He was seen on May 22, 2021 when he presented with inferior wall [place] to [facility]. He was taken for emergent cardiac catheterization where we found 100% occlusion of the right coronary artery which was treated with drug-eluting stents. He did not have any residual disease in the LAD or LCX. He has done well since then. He has no chest pain or shortness of breath. He was using cocaine before but since the procedure he has stopped using it. He also has stop smoking. He had some nosebleeds but they have improved. He continues to take aspirin and Brilinta. No other bleeding concerns. Taking medications regularly. He has not had any fasting lipid panel since February 2019. At that time his LDL was 141, his total cholesterol was 237 and triglycerides were 328. His HDL was 31. 10/29/2022: He returns for follow-up. He has completed 1 year home ticagrelor and he is currently taking aspirin only he denies chest pain or shortness of breath. He is smoking 6 few cigarettes a day and is see history thinking about quitting. Blood pressure control in the office is good. Tolerating medications well. 05/11/2023: Returns for follow-up. He has no chest pain or shortness of breath. Blood pressure mildly elevated. Last blood workup was in October 2022 when total cholesterol was 239, LDL 161, HDL 35 and triglycerides 215. He has been on atorvastatin 80 mg and fenofibrate 130 mg daily. No symptoms clinically. He will need repeat lipid panel. 11/11/2023: He returns for follow-up. He is taking atorvastatin 80 mg and fenofibrate 130 mg. His cholesterol was quite high and on last visit we discussed about doing fasting lipid panel but it appears he has not done that. He is denying any chest discomfort shortness of breath. Otherwise taking medications regularly. 03/14/2024: Jayy is here for follow-up. He had repeat lipid panel in December of 2023 where triglycerides were 523, total cholesterol 289, HDL 15 and LDL test could not be performed. He has been taking atorvastatin 80 mg and fenofibrate 130 mg daily. Blood pressure is well controlled. He has stopped smoking recently. He continues to drink alcohol which we discussed about. Denying chest pain or shortness of breath otherwise. [facility] Medical History (System 10/01/23 @ 16:45 by Tarah German) Lipoma of left shoulder Hyperlipidemia Surgical History (Reviewed 03/14/24 @ 15:35 by Tika Smith [facility]) History of cholecystectomy History of cardiac cath Family History Mother Lung disease Father Lung disease Social History (Reviewed 03/14/24 @ 15:35 by Tika Smith [facility]) Alcohol intake: former Year quit: 2021 Patient Tobacco Use Status: Current everyday Tobacco user Years Smoked: 30 +/- Substance Use Type: Crack/Cocaine Current occupational status: employed 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 Review of Systems Const Denies chills, Denies fatigue, Denies fever(s), Denies frequent falls, Denies weakness, Denies weight gain and Denies weight loss ENT Denies dizziness Card Denies chest pain, Denies leg edema, Denies lightheadedness, Denies palpitations, Denies dyspnea and Denies dyspnea on exertion Resp Denies cough, Denies dyspnea and Denies dyspnea on exertion GI Denies hematochezia Musc Denies abnormal gait, Denies muscle weakness, Denies numbness, Denies radiating pain into limb and Denies tingling Neuro Denies abnormal gait, Denies dizziness, Denies frequent falls, Denies numbness, Denies tingling and Denies weakness Endo Denies fatigue and Denies palpitations Physical Exam Vital Signs: Last Vital Signs Pulse 64 03/14/24 15:28 BP 104/70 03/14/24 15:28 BMI result Body Mass Index 36.8 GENERAL APPEARANCE: in no acute distress, pleasant. NECK: no carotid bruit, no jugular venous distention. SKIN: no suspicious lesions, warm and dry. HEART: no murmurs, regular rate and rhythm. LUNGS: clear to auscultation bilaterally. ABDOMEN: soft, nontender. EXTREMITIES: no edema. PERIPHERAL PULSES: equal. NEUROLOGIC: No gross deficits, AAO X 3 Assessment & Plan Assessment & Plan (1) Stable angina: Code(s): I20.8 - Other forms of angina pectoris Category: Medical (2) Hyperlipidemia: Code(s): E78.5 - Hyperlipidemia, unspecified Category: Medical Plan Pleasant 48 year gentleman with known history of coronary disease with previous PCI presenting for follow-up. He has significantly abnormal lipid panel with triglycerides of 523, total cholesterol 289, LDL test not performed due to elevated triglycerides and HDL of 15. He is on atorvastatin 80 mg and fenofibrate. I discussed with him about diet and exercise. He needs to stop drinking alcohol. Adding Lovaza 1 capsule twice a day. If he tolerates this then can be increased to 2 capsules twice a day in the coming months. We will have repeat fasting lipid panel in 6-8 weeks. After that we will see him in the office. Thank you for allowing me to participate in the care of your patient. Please feel free to contact me if you have any questions. Orders: Orders Lipid Panel 7 Weeks E78.5 - Hyperlipidemia, unspecified Medications: New omega-3 acid ethyl esters (Lovaza) 1 cap PO BID 120 caps 4RF E78.5 - Hyperlipidemia, unspecified Coding Level of Care Code Est Pt Level 4 (99583) Diagnoses Stable angina I20.8 Hyperlipidemia E78.5
== END 2024-03-14 15:57 | disposition home or self-care (01) ==
PROVIDERS: PCP Internal Medicine; Visit Provider Internal Medicine Cardiovascular Disease
DX: I20.89 Other forms of angina pectoris (principal); E78.5 Hyperlipidemia, unspecified
CPT/HCPCS: 99214

== ENCOUNTER → 2024-03-14 15:22 | Outpatient (BNVA) | payer MEDICAID, SELFPAY | PROVIDERS: PCP Internal Medicine; Visit Provider Internal Medicine Cardiovascular Disease | DX: I20.89 Other forms of angina pectoris (principal); E78.5 Hyperlipidemia, unspecified | CPT/HCPCS: 99212 ==

== ENCOUNTER 2024-03-30 14:45 | Outpatient (AMB) | payer MEDICAID, SELFPAY ==
--- NOTE | 2024-03-30 14:47 | A.OFFVIS_ITS ---
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 The lipomas on the left shoulder near the neck. This area was prepped and draped. Lidocaine 1% was used for local anesthesia. I made an incision in the skin overlying the lipoma with a blade 15. And this was carried down through the full-thickness of the skin and thick subcutaneous fat. The lipoma was eventually seen. I sharply dissected this with Metzenbaum scissors off of the rest of the subcutaneous layer until it was delivered. This measured about 4 cm in widest dimension. I closed the incision with full-thickness nylon 3-0 simple interrupted sutures. Dressings were applied. The procedure was completed. He tolerated procedure well. There were no immediate complications. 68034-latfz/arms/legs 3.1-4cm Procedure code (CPT) selection complete Assessment & Plan Assessment & Plan (1) Lipoma of left shoulder: Code(s): D17.22 - Benign lipomatous neoplasm of skin and subcutaneous tissue of left arm Category: Medical Plan: Excision was done in the office. He tolerated the procedure well. He was given wound care instructions. I will see him in the office in about 2 weeks for removal of sutures. Coding Level of Care Code Procedure Only Diagnoses Lipoma of left shoulder D17.22 CPT Codes Trunk/Arms/Legs - CPT: 37966-faqkf/arms/legs 3.1-4cm ([id number])
--- OUTSIDE RECORDS SUMMARY | 2024-03-30 15:54 | XMS_ITS | Encounter Summary ---
Author Organization [employer] Address [address] [place] [address] [address] [place] [address] Care Team Providers Care Flat Machine Cutter Name Role Phone Maddy Malave MD Primary Care Provider Vijay Lundberg PharmD Unavailable Unavail able Encounter Details Date Type Department Care Team (Late Contact Info) Description 11/12/2022 Orders Only [facility] [address] [place] [address] Maddy Malave MD [address] [place] [address] Social History Tobacco Use Types Packs/Day Years Used Date Smoking Tobacco: Some Days Cigarettes 0.3 48.1 Started: 1978 Smokeless Tobacco: Never Comments:Smoking [id number], o nly smoking 1-2cig/day, currently 0 Alcohol Use Standard Drinks/Week Comments Yes 0 (1 standard drink = 0.6 oz pur e alcohol) working on cutting down Sex and Gender Information Value Date Recorded Sex Assigned at Male 12/23/2021 10:16 AM EDT Legal Sex Male 10:16 AM EDT Gender Identity Male 12/23/2021 10:16 AM EDT Sexual Orientation Straight 12/23/2021 10 :16 AM EDT documented as of this encounter Plan of Treatment Upcoming Encounters Date Type Department Care Team (Late Contact Info) Description 04/14/2024 4:00 PM EST Office Visit [facility] [address] [place] [address] Maddy Malave MD [address] [place] [address] documented as of this encounter Goals Goal Patient Goal Type Associated Problems Recent Progress Patient-Stated? Author Blood Pressure < 140/90 Blood Pressure 138/84(2024 3:26 PM EST) No Vijay Lundberg, Pedro Pablo Smoking cessation General No Vijay Lundberg PharmD documented as of this encounter Visit Diagnoses Not on filedocumented in this encounter Care Teams Flat Machine Cutter Relationship Specialty Start Date End Date Maddy Malave MD [address] [place] [address] PCP - General Internal Medicine 09/26/13 Vijay Lundberg PharmD [address] [place] [address] Pharmacist Internal Medicine 02/03/22 documented as of this encounter
--- OUTSIDE RECORDS SUMMARY | 2024-03-30 15:54 | XMS_ITS | Encounter Summary ---
Author Organization [employer] Address [address] [place] [address] Care Team Providers Care Utility Pipe Layer Name Role Phone Maddy Malave MD Primary Care Provider +1- [phone] Vijay Lundberg PharmD Unavailable Unavail able Encounter Details Date Type Department Care Team (Latest Contact Info) Description 03/03/2024 Travel Social History Tobacco Use Types Packs/Day Years Used Date Smoking Tobacco: Some Days Cigarettes 0.3 48.1 Started: 1978 Smokeless Tobacco: Never Comments:Smoking [id number], o nly smoking 1-2cig/day, currently 0 Alcohol Use Standard Drinks/Week Comments Yes 0 (1 standard drink = 0.6 oz pur e alcohol) working on cutting down Alcohol Answer Date Recorded Q1: How often do you have a drink containing alc ohol? 4 12/31/2023 Q2: How many drinks containi ng alcohol do you have on a typical day when you are drinking? 4 12/31/2023 Frequency of Binge Drinking Not on file 08/2023 Depression Answer Date Recorded Patient Health Questionnaire-9 Score 0 09/25/2023 Patient Health Questionnaire-9 Score 0 09/25/2023 Last PHQ-9: Questionnaire Data Not on file 0 09/25/2023 Housing Stability Answer Date Recorded What is your housing situation today? I have sergiolatsaha lilly 09/25/[address] you li ve. Do you have problems with any of the following? None of the above 09/25/2023 Food Insecurity Answer Date Recorded Within the past 12 months, y ou worried that your food would run out before you got money to buy more: Never True 09/25/2023 Within the past 12 months,th e food you bought just didn't last and you didn't have enough money to get more: Never True 03/2023 Transportation Answer Date Recorded In the past 12 months, has l ack of transportation kept you from medical appts, meetings, work or from getting things needed for daily living? No 12/17/2022 Utilities Answer Date Recorded In the past 12 months, has t he electric, gas, oil or water company threatened to shut off services in your home? No 09/25/2023 Depression Answer Date Recorded Patient Health Questionnaire-2 Score 0 09/25/2023 Internet Access Answer Date Recorded Internet Access Q1 No 10/26/2023 Internet Access Q2 Not on file 10/26/2023 Sex and Gender Information Value Date Recorded Sex Assigned at Male 12/23/2021 10:16 AM EDT Legal Sex Male 10:16 AM EDT Gender Identity Male 12/23/2021 10:16 AM EDT Sexual Orientation Straight 12/23/2021 10 :16 AM EDT documented as of this encounter Plan of Treatment Upcoming Encounters Date Type Department Care Team (Late st Contact Info) Description 04/14/2024 4:00 PM EST Office Visit [facility] [address] [place] [address] Maddy Malave MD [address] [place] [address] documented as of this encounter Goals Goal Patient Goal Type Associated Problems Recent Progress Patient-Stated? Author Blood Pressure < 140/90 Blood Pressure 138/84(2024 3:26 PM EST) No Vijay Lundberg, PharmD Smoking cessation General No Vijay Lundberg, PharmD documented as of this encounter Visit Diagnoses Not on filedocumented in this encounter Additional Health Concerns Assessment Noted Time PHQ-9 Depression Total Score: 0 09/25/19 24 3:09 PM EDT documented as of this encounter Care Teams Utility Pipe Layer Relationship Specialty Start Date End Date Maddy Malave MD [address] [place] [address] PCP - General Internal Medicine 09/26/13 Vijay Lundberg, PharmD [address] [place] [address] Pharmacist Internal Medicine 02/03/22 documented as of this encounter
--- OUTSIDE RECORDS SUMMARY | 2024-03-30 15:54 | XMS_ITS | Encounter Summary ---
Author Organization [employer] Address [address] [facility] [address] [place] [address] Care Team Providers Care Veneer Sorter Name Role Phone Maddy Malave MD Primary Care Provider Vijay Lundebrg PharmD Unavailable Unavail able Encounter Details Date Type Department Care Team (Late Contact Info) Description 09/11/2022 Orders Only [facility] [address] [place], [place] [phone] Maddy Malave MD [address] [place] [address] Chronic left shoulder pain (Primary Dx) Social History Tobacco Use Types Packs/Day Years Used Date Smoking Tobacco: Some Days Cigarettes 0.3 48.1 Started: 1978 Smokeless Tobacco: Never Comments:Smoking [id number], o nly smoking 1-2cig/day, currently 0 Alcohol [...] Upcoming Encounters Date Type Department Care Team ([facility] Contact Info) Description 04/14/2024 4:00 PM EST Office Visit [facility] [address] [place], [place] [id number] Maddy Malave MD [address] [place], [place] [id number] documented as of this encounter Goals Goal Patient Goal Type Associated Problems Recent Progress Patient-Stated? Author Blood Pressure < 140/90 Blood Pressure 138/84(2024 3:26 PM EST) No Vijay Lundberg, PharmBrandon Smoking cessation General No Vijay Lundberg PharmD documented as of this encounter Visit Diagnoses Diagnosis Chronic left shoulder pain- Primary Pain in joint, shoulder region documented in this encounter Care Teams Veneer Sorter Relationship Specialty Start Date End Date Maddy Malave MD [address] [place] [address] PCP - General Internal Medicine 09/26/13 Vijay Lundberg PharmD [address] [place] [address] Pharmacist Internal Medicine 02/03/22 documented as of this encounter
--- OUTSIDE RECORDS SUMMARY | 2024-03-30 15:54 | XMS_ITS | Encounter Summary ---
Author Organization [employer] Address [address] [facility] 7t [place] [address] Care Team Providers Care Twisting Press Operator Name Role Phone Maddy Malave MD Primary Care Provider +1- [phone] Vijay Lundberg PharmD Unavailable Unavail able Reason for Visit * Reason Comments Med Refill Encounter Details Date Type Department Care Team ([facility] st Contact Info) Description 03/17/2024 Refill [facility] [address] [place] [address] Maddy Malave MD [address] [place] [address] Primary hypertension Social History Tobacco Use Types Packs/Day Years Used Date Smoking Tobacco: Some Days Cigarettes 0.3 48.1 Started: 1978 Smokeless Tobacco: Never Comments:Smoking [id number], o nly smoking 1-2cig/day, currently 0 Alcohol [...] is your housing situation today? I have sergio lilly 09/25/[address] you [...] Description 04/14/2024 4:00 PM EST Office Visit [facility] [address] [place] [address] Maddy Malave MD [address] [place] [address] documented as of this encounter Goals Goal Patient Goal Type Associated Problems Recent Progress Patient-Stated? Author Blood Pressure < 140/90 Blood Pressure 138/84(2024 3:26 PM EST) No Vijay Lundberg, PharmD Smoking cessation General No Vijay Lundberg, PharmD documented as of this encounter Visit Diagnoses Diagnosis Primary hypertension Unspecified essential hypertension documented in this encounter Additional Health Concerns Assessment Noted Time PHQ-9 Depression Total Score: 0 09/25/19 24 3:09 PM EDT documented as of this encounter Care Teams Twisting Press Operator Relationship Specialty Start Date End Date Maddy Malave MD [address] [place] [address] PCP - General Internal Medicine 09/26/13 Vijay Lundberg PharmD [address] [place] [address] Pharmacist Internal Medicine 02/03/22 documented as of this encounter
--- OUTSIDE RECORDS SUMMARY | 2024-03-30 15:54 | XMS_ITS | Encounter Summary ---
Author Organization [employer] Address [address] [place] [address] Care Team Providers Care Health Equipment Servicer Name Role Phone Maddy Malave MD Primary Care Provider +1- [phone] Vijay Lundberg PharmD Unavailable Unavail able Encounter Details Date Type Department Care Team (Latest Contact Info) Description 03/02/2024 Travel Social History Tobacco Use Types Packs/Day Years Used Date Smoking Tobacco: Some Days Cigarettes 0.3 48.1 Started: 1978 Smokeless Tobacco: Never Comments:Smoking [id number], o nly smoking 1-2cig/day, currently 0 Alcohol [...] is your housing situation today? I have sergiolatasha lilly 09/25/[address] you [...] Description 04/14/2024 4:00 PM EST Office Visit [facility] [address] [place] [address] Maddy Malave MD [address] [place] [address] documented as of this encounter Goals Goal [...] documented as of this encounter Care Teams Health Equipment Servicer Relationship Specialty Start Date End Date Maddy Malave MD [address] [place] [address] PCP - General Internal Medicine 09/26/13 Vijay Lundberg, PharmD [address] [place] [address] Pharmacist Internal Medicine 02/03/22 documented as of this encounter
--- OUTSIDE RECORDS SUMMARY | 2024-03-30 15:54 | XMS_ITS | Clinical Summary ---
Author Organization [employer] Address [address] [facility] [address] [place] [address] Care Team Providers Care Stock House Worker Name Role Phone Maddy Malave MD Primary Care Provider [phone] Vijay Lundberg PharmD Unavailable Unavail able Allergies No known active allergies Medications azelastine (Astelin) 0.1 % nasal spray spray 2 spray by intranasal route 2 times every day in each nostril 08/09/19 22 Active nicotine polacrilex (Commit) 2 MG lozenge Take 1 tablet by mouth. Every 2 hours dissolved slowly in the mouth as needed Active disulfiram (Antabuse) 250 MG tabletIndicatio ns:Alcohol use disorder Take 1 tablet (250 mg) by mouth in the morning. 30 tablet 3 11/12/19 23 Active Varenicline Tartrate, Starter, (Chantix Starting ) 0.5 MG X 11 & 1 MG X 42 tablet therapy packIndications :Tobacco dependence syndrome Take 0.5 mg by mouth in the morning for 3 days, THEN 0.5 mg 2 times daily for 4 days, THEN 1 mg 2 times daily. 53 each 12/24/19 23 Active varenicline (Chantix Continuing ) 1 MG tabletIndicatio ns:Tobacco dependence syndrome Take 1 tablet (1 mg) by mouth 2 times daily. Take with full glass of water. 60 tablet 2 12/24/19 23 Active Diclofenac Sodium 1 % gelIndications: Chronic left shoulder pain,Muscle spasm APPLY 2 GRAM'S TO AFFECTED AREA(s) TWICE DAILY NEEDED 100 g 12/31/19 23 Active fluticasone (Flonase) 50 MCG/ACT nasal sprayIndication s:Sinus congestion SPRAY 1-2 SPRAYS INTO EACH NOSTRIL ONCE DAILY IN THE MORNING 48 g 08/18/19 24 Active Aspirin Adult Low Strength 81 MG EC tablet TAKE ONE TABLET EVERY MORNING 90 tablet 1 11/18/19 24 Active atorvastatin (Lipitor) 80 MG tablet TAKE ONE TABLET EVERY EVENING 90 tablet 3 11/18/19 24 Active pantoprazole (ProtoNix) 40 MG EC tablet TAKE ONE TABLET EVERY MORNING 90 tablet 1 11/18/19 24 Active fenofibrate micronized (Antara) 130 MG capsuleIndicati ons:Hypertrigly ceridemia TAKE ONE CAPSULE EVERY MORNING WITH BREAKFAST 90 capsule 3 11/18/19 24 Active Ketotifen Fumarate 0.035 % solutionIndicat ions:Seasonal allergies PLACE TWO DROPS IN THE AFFECTED EYE(S) ONCE DAILY 5 mL 12/28/19 24 Active Allergy Relief 180 MG tabletIndicatio ns:Allergic rhinitis due to other allergic trigger, unspecified seasonality TAKE ONE TABLET EVERY MORNING 90 tablet 1 01/11/20 24 Active albuterol 108 (90 Base) MCG/ACT inhalerIndicati ons:Acute cough,Bronchiti s Inhale 2 puffs every 6 (six) hours if needed for wheezing. 18 g 03/02/19 25 026 Active varenicline (Chantix) 1 MG tabletIndicatio ns:Tobacco dependence syndrome Take 1 tablet (1 mg) by mouth 2 times daily. Take with full glass of water. 60 tablet 3 03/02/19 25 025 Active lisinopril-hydr oCHLOROthiazide 20-12.5 MG tabletIndicatio ns:Primary hypertension TAKE ONE TABLET EVERY MORNING 90 tablet 1 03/17/19 25 Active metoprolol succinate XL (Toprol-XL) 100 MG 24 hr tabletIndicatio ns:Primary hypertension TAKE ONE TABLET EVERY MORNING 90 tablet 1 03/17/19 25 Active varenicline (Chantix) 1 MG tabletIndicatio ns:Tobacco dependence syndrome Take 1 tablet (1 mg) by mouth 2 times daily. Take with full glass of water. 60 tablet 3 03/25/19 24 025 Discontinued(R eorder (will not trigger notification to Pharmacy)) lisinopril-hydr oCHLOROthiazide 20-12.5 MG tabletIndicatio ns:Primary hypertension TAKE ONE TABLET EVERY MORNING 90 tablet 1 09/15/19 24 025 Discontinued metoprolol succinate XL (Toprol-XL) 100 MG 24 hr tabletIndicatio ns:Primary hypertension TAKE ONE TABLET EVERY MORNING 90 tablet 1 09/15/19 24 025 Discontinued albuterol 108 (90 Base) MCG/ACT inhalerIndicati ons:Acute cough,Bronchiti s Inhale 2 puffs every 6 (six) hours if needed for wheezing. 18 g 11/04/19 24 025 Discontinued(R eorder (will not trigger notification to Pharmacy)) predniSONE (Deltasone) 20 MG tabletIndicatio ns:Laryngitis,B ronchitis Take 1 tablet (20 mg) by mouth Once per day for 5 days. 5 tablet 03/02/19 025 doxycycline (Vibra-Tabs) 100 MG tabletIndicatio ns:Acute cough,Bronchiti s Take 1 tablet (100 mg) by mouth 2 times daily for 10 days. Take with a full glass of water and do not lie down for at least 30 minutes after. 20 tablet 03/02/19 25 025 benzonatate (Tessalon Perles) 100 MG capsuleIndicati ons:Acute cough Take 1 capsule (100 mg) by mouth if needed in the morning, at noon, and at bedtime for cough for up to 7 days. Do not crush or chew. 20 capsule 03/02/19 25 025 Active Problems Problem Noted Date Diagnosed Date Colon cancer screening 11/06/2023 Class 2 obesity 05/28/2022 Myocardial infarction 01/13/2022 Essential hypertension 06/24/2016 Hyperlipidemia 01/12/2013 Allergic rhinitis 11/23/2012 Gastroesophageal reflux disease 11/23/2012 History of cholecystectomy 11/23/2012 Tobacco dependence syndrome 11/23/2012 Encounters Date Type Department Care Team Description 03/17/2024 Refill [facility] [address] [place] [address] Maddy Malave MD Primary hypertension 03/03/2024 Travel 03/02/2024 3:30 PM EST Office Visit [facility] [address] [place] [address] Maddy Malave MD Essential hypertension (Primary Dx); Allergic rhinitis due to other allergic trigger, unspecified seasonality; Mixed hyperlipidemia; Laryngitis; Bronchitis; Acute cough; Bronchitis; Tobacco dependence syndrome 03/02/2024 Travel 01/09/2024 Refill [facility] [address] [place] [address] Maddy Malave MD Allergic rhinitis due to other allergic trigger, unspecified seasonality 01/04/2024 Telephone [facility] [address] [place] [address] Maddy Malave MD Results 01/01/2024 Travel 12/31/2023 4:00 PM EST Office Visit [facility] [address] [place] [address] Maddy Malave MD Essential hypertension (Primary Dx); Hypercalcemia; Mixed hyperlipidemia; Hypertriglyceridemia; Macrocytosis 12/31/2023 Travel from Last 3 Months Immunizations Name Administration Dates Next Due Influenza, Split (incl. purified surface antigen ) 11/23/2012 TD (adult), 2 Lf tetanus tox oid, preservative free, adsorbed 05/08/2002 Tdap 03/01/2015 Social History Tobacco Use Types Packs/Day Years Used Date Smoking Tobacco: Some Days Cigarettes 0.3 48.1 Started: 1976 Smokeless Tobacco: Never Tobacco Cessation:Ready to Q uit: Yes; Counseling Given: Yes Comments:Smoking [id number], only smoking 1-2cig/day, currently 0 Alcohol Use Standard [...] Orientation Straight 12/23/2021 10 :16 AM EDT Last Filed Vital Signs Vital Sign Reading Time Taken Comments Blood Pressure 138/84 03/02/2024 3:26 PM EST Pulse 51 03/02/2024 3:26 PM EST Temperature 36.6 ??C (97.8 ??F) 03/02/2024 3:18 PM ES T Respiratory Rate 20 03/02/2024 3:18 PM EST Oxygen Saturation 94% 03/02/2024 3:18 PM EST Inhaled Oxygen Concentration - - Weight 96.6 kg (213 lb) 03/02/2024 3:18 PM EST Height 162.6 cm (5' 4 ) 03/02/2024 3:18 PM EST Body Mass Index 36.56 03/02/2024 3:18 PM EST Plan of Treatment Upcoming Encounters Date Type Department Care Team (Late st Contact Info) Description 04/14/2024 4:00 PM EST Office Visit [facility] [address] [place] [address] Maddy Malave MD [address] [place] [address] Health Maintenance Due Date Last Done Comments CT Colonography 1973 Colonoscopy 1973 Colorectal Cancer Screening 1973 FIT DNA/Cologuard 1973 FIT 1973 FOBT 1973 HIV Screening 1973 Sigmoidoscopy 1973 Family Planning (PISQ) 1988 Hepatitis A Vaccines (1 of 2 - Risk 2-dose series) 1992 Hepatitis B Vaccines (1 of 3 - 19+ 3-dose series) 1992 Pneumococcal Vaccine: 50+ Years (1 of 2 - PCV) 1992 SDOH Screening 05/29/2023 05/28/2022 Zoster Vaccines (1 of 2) 12/29/2023 Influenza Vaccine (#1) 2024 11/23/2012 Postp oned from 10/25/2023 (Patient Refused) Depression Screening 09/24/2024 09/25/2023, 09/25/19 24 Alcohol/Substance Use Screening 12/30/2024 12/31/2023 DTaP/Tdap/Td Vaccines (2 - Td or Tdap) 03/01/2025 03/01/2015, 05/08/2002 COVID-19 Vaccine ( - season) 2025 Postponed from 10/25/2023 (Patient Refused) Tobacco Screening 03/02/2025 03/02/2024 Lipid Panel 12/30/2028 12/31/2023, 10/24, 02/03/2022, Additional history exists RSV Patients and Patients Aged 60 years or older (1 - 1-dose 75+ series) 2048 Hepatitis C Screening Completed 12/31/2023 HIB Vaccines Aged Out No longer eligi ble based on patient's age to complete this topic HPV Vaccines Aged Out No longer eligi ble based on patient's age to complete this topic IPV Vaccines Aged Out No longer eligi ble based on patient's age to complete this topic Meningococcal Vaccine Aged Out No fany zan eligible based on patient's age to complete this topic RSV under 20 months Aged Out No longe r eligible based on patient's age to complete this topic Rotavirus Vaccines Aged Out No longer eligible based on patient's age to complete this topic Goals Goal Patient Goal Type Associated Problems Recent Progress Patient-Stated? Author Blood Pressure < 140/90 Blood Pressure 138/84(2024 3:26 PM EST) No Vijay Lundberg, Pedro Pablo Smoking cessation General No Vijay Lundberg PharmD Procedures Procedure Name Priority Date/Time Associated Diagnosis Comments HEPATITIS C VIRAL RNA, QUANTITATIVE, REAL-TIME PCR Routine 12/31/2023 8:18 AM EST Mixed hyperlipidemia Essential hypertension TSH W/REFLEX TO FT4 Routine 12/31/2023 8 :18 AM EST Mixed hyperlipidemia Essential hypertension LIPID PANEL, STANDARD Routine 12/31/2023 8:18 AM EST Mixed hyperlipidemia Essential hypertension COMPREHENSIVE METABOLIC PANEL Routine 12/31/2023 8:18 AM EST Mixed hyperlipidemia Essential hypertension CBC WITH AUTO DIFFERENTIAL Routine 12/31/2023 8:18 AM EST Mixed hyperlipidemia Essential hypertension from Last 3 Months Results * TSH W/Reflex to FT4 (12/31/2023 8:18 AM EST) TSH reflex Free T4 3.02 0.32 - 4.0 uIU/mL [facility] Blood Venous blood specimen / Unknown 12/31/2023 8:18 AM EST 12/31/2023 2:50 PM EST us Maddy Malave MD LAB BLOOD ORDERABLES Final Result [facility] [address] [place] [phone] * Hepatitis C Viral RNA, Quantitative, Real-Time PCR (12/31/2023 8:18 AM EST) Hepatitis C Viral Load <15 NOT DETECTED NOT DETECTED IU/mL [facility] HCV Log PCR <1.18 NOT DETECTED NOT DETECTED Log IU/mL [facility] Comment:For additional infor rm, please refer [email or web address].Artaic/faq/[email or web address](This link is being provided for informational/educational purposes only.)THIS TEST WAS PERFORMED AT:[facility] [place] [phone] CAM MD Blood Venous blood specimen / Unknown 12/31/2023 8:18 AM EST 12/31/2023 2:50 PM EST us Maddy Malave MD LAB BLOOD ORDERABLES Final Result [facility] [address] [place] [phone] * (ABNORMAL) CBC auto differential (12/31/2023 8:18 AM EST) White Blood Count 8.8 4.8 - 10.8 X10*3/uL [facility] Red Blood Count 4.24(L) 4.60 - 5.80 X10*6/uL [facility] Hemoglobin 14.1 14.0 - 18.0 g/dl [facility] Hematocrit 42.0 42.0 - 52.0 % [facility] Mean Corpuscular Volume 99.1(H) 80.0 - 98.0 fL [facility] Mean Corpuscular Hemoglobin 33.3(H) 27.0 - 33.0 pg [facility] Mean Corpuscular HGB Conc 33.6 31.0 - 36.0 g/dl [facility] Red Cell Distribution Width 13.8 11.0 - 16.0 % [facility] Platelet Count 356 160 - 400 X10*3/uL [facility] Mean Platelet Volume 11.5 9.4 - 12.4 fL [facility] Neutrophils Percent Auto 54.9 45 - 73 % [facility] Imm Gran Pct Auto 0.3 0.0 - 0.4 % [facility] Lymphocytes Percent Auto 32.7 20 - 40 % [facility] Monocytes Percent Auto 7.4 2 - 11 % [facility] Eosinophils Percent Auto 3.1 0 - 4 % [facility] Basophils Percent Auto 1.6 0 - 2 % [facility] NRBC Pct Auto 0.0 0.0 - 0.2 /100WBC [facility] Neutrophils Absolute Auto 4.9 2.0 - 8.3 x10*3/uL [facility] Imm Gran Abs Auto 0.03 0.00 - 0.03 X10*3/uL [facility] Lymphocytes Absolute Auto 2.9 1.2 - 4.9 X10*3/uL [facility] Monocytes Absolute Auto 0.7 0.1 - 1.2 X10*3/uL [facility] Eosinophils Absolute Auto 0.3 0.0 - 0.4 X10*3/uL [facility] Basophils Absolute Auto 0.1 0.0 - 0.2 X10*3/uL [facility] NRBC Abs Auto 0.000 0.0 - 0.012 X10*3/uL [facility] Blood Venous blood specimen / Unknown 12/31/2023 8:18 AM EST 12/31/2023 2:50 PM EST us Maddy Malave MD LAB BLOOD ORDERABLES Final Result [facility] [address] [place] [phone] * (ABNORMAL) Lipid Panel, Standard (12/31/2023 8:18 AM EST) Triglycerides 523(H) <150 mg/dL [facility] Comment:Slight Lipemia.Elias able Triglyceride: less than 150 mg/dLBorderline High Triglyceride 150-199 mg/dLHigh Triglyceride: 200-499 mg/dLVery High Triglyceride: greater than or equal to 5OO mg/dL Cholesterol 289(H) <200 mg/dL [facility] Comment:Desirable Cholestero l: less than 200 mg/dLBorderline High Cholesterol: 200-239 mg/dLHigh Cholesterol: greater than 239 mg/dL LDL Cholesterol Calculated TNP <100 mg/dL [facility] Comment:Unable to calculate the LDL. The formula of Friedwald,Bui, and Talita is only valid if the triglycerides areless than 400 mg/dl. HDL Cholesterol 15(L) >40 mg/dL [facility] Comment:Desirable HDL: great er than 40 mg/dL Note: This HDL assay may give artificially low results in patients with liver disease. Blood Venous blood specimen / Unknown 12/31/2023 8:18 AM EST 12/31/2023 2:50 PM EST us Maddy Malave MD LAB BLOOD ORDERABLES Final Result [facility] [address] [place] [address] [phone] * (ABNORMAL) Comprehensive Metabolic Panel (12/31/2023 8:18 AM EST) Sodium 139 135 - 145 mmol/L [facility] Potassium 3.7 3.3 - 5.1 mmol/L [facility] Chloride 105 96 - 108 mmol/L [facility] Carbon Dioxide 25 22 - 29 mmol/L [facility] Anion Gap 13 12 - 20 [facility] Urea Nitrogen (BUN) 19(H) 9 - 16 mg/dL [facility] Creatinine, Serum 0.70 0.5 - 1.4 mg/dL [facility] Estimated Glomerular Filt Rate >60 [facility] Comment:NOTE: For -Am erican individuals, multiply the result by 1.210.Chronic Kidney Disease: Estimated GFR < 60 mL/min/1.95f3Syaawc Kidney Disease: Estimated GFR < 15 mL/min/1.73m2 Glucose 98 60 - 115 mg/dL [facility] Calcium 10.4(H) 8.4 - 10.2 mg/dL [facility] Bilirubin, Total 0.8 0.0 - 1.0 mg/dL [facility] Aspartate Amino Transferase 40(H) 5 - 37 U/L [facility] Alanine Aminotransferase 28 0 - 40 U/L [facility] Total Protein 7.9 6.5 - 8.0 g/dL [facility] Albumin Level 4.5 3.5 - 5.0 g/dL [facility] Alkaline Phosphatase 72 39 - 117 U/L [facility] Blood Venous blood specimen / Unknown 12/31/2023 8:18 AM EST 12/31/2023 2:50 PM EST Maddy Malave MD LAB BLOOD ORDERABLES Final Result [facility] [address] [place] [phone] from Last [address] [place] [address] [address] [address] C3 Care Teams Stock House Worker Relationship Specialty Start Date End Date Maddy Malave MD [address] [place] [address] PCP - General Internal Medicine 09/26/13 Vijay Lundberg, MaggieD [address] [place] [address] Pharmacist Internal Medicine 02/03/22
--- OUTSIDE RECORDS SUMMARY | 2024-03-30 15:54 | XMS_ITS | Encounter Summary ---
Author Organization [employer] Address [address] [place] [address] 7[address] [place] [address] Care Team Providers Care Communications Maintainer Name Role Phone Maddy Malave MD Primary Care Provider +1- [phone] Vijay Lundberg PharmD Unavailable Unavail able Reason for Referral * PFT (Routine) - Authorized Specialty Diagnoses / Procedures Referred By Contneena t Referred To Contact Diagnoses Smoking Bronchitis Procedures Pulmonary Function Test Maddy Malave MD [address] [place] [address] Phone: tel: fax: [address] Phone: tel: fax: Referral ID Status Reason Start Date Expiration Date V isits Requested Visits Authorized [id number] Authorized 03/02/2024 03/02/2025 1 1 Reason for Visit * Reason Comments Hypertension Encounter Details Date Type Department Care Team (Late st Contact Info) Description 03/02/2024 3:30 PM EST Office Visit [facility] MED & PEDS [address] [place] [address] Maddy Malave MD [address] [place] [address] Essential hypertension (Primary Dx); Allergic rhinitis due to other allergic trigger, unspecified seasonality; Mixed hyperlipidemia; Laryngitis; Bronchitis; Acute cough; Bronchitis; Tobacco dependence syndrome Social History Tobacco Use Types Packs/Day Years Used Date Smoking Tobacco: Some Days Cigarettes 0.3 48.1 Started: 1978 Smokeless Tobacco: Never Comments:Smoking [id number], o nly smoking 1-2cig/day, currently 0 Alcohol [...] your housing situation today? I have sergio maxx 09/25/[address] you li [...] the past 12 months, has t he [employer], gas, oil or water company threatened to [...] AM EDT documented as of this encounter Last Filed Vital Signs Vital Sign Reading [...] Mass Index 36.56 03/02/2024 3:18 PM EST documented in this encounter Progress Notes * Maddy Malave MD - 03/02/2024 3:30 PM EST Subjective Patient ID: Jayy Ortez Jr is a 48 y.o. male who presents for Hypertension. Hypertension This is a chronic problem. The problem is controlled. Pertinent negatives include no anxiety, blurred vision, chest pain, headaches, malaise/fatigue, neck pain, orthopnea, palpitations, peripheral edema, PND, shortness of breath or sweats. Compliant to his medication C/o cough and chest congestion x the last 2 weeks w/ hoarseness. 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 Also uses [employer] [employer] awesome at his job to remove spots on the carpets he works on. Patient Active Problem List Diagnosis Allergic rhinitis Essential hypertension Gastroesophageal reflux disease History of cholecystectomy Hyperlipidemia Myocardial infarction (CMS/HCC) Tobacco dependence syndrome Class 2 obesity Colon cancer screening Current Outpatient Medications on File Prior to Visit Medication Sig Dispense Refill albuterol 108 (90 Base) MCG/ACT inhaler Inhale 2 puffs every 6 (six) hours if needed for wheezing. 18 g 0 Allergy Relief 180 MG tablet TAKE ONE TABLET EVERY MORNING 90 tablet 1 Aspirin Adult Low Strength 81 MG EC tablet TAKE ONE TABLET EVERY MORNING 90 tablet 1 atorvastatin (Lipitor) 80 MG tablet TAKE ONE TABLET EVERY EVENING 90 tablet 3 azelastine (Astelin) 0.1 % nasal spray spray 2 spray by intranasal route 2 times every day in each nostril Diclofenac Sodium 1 % gel APPLY 2 GRAM'S TO AFFECTED AREA(s) TWICE DAILY NEEDED 100 g 0 disulfiram (Antabuse) 250 MG tablet Take 1 tablet (250 mg) by mouth in the morning. 30 tablet 3 fenofibrate micronized (Antara) 130 MG capsule TAKE ONE CAPSULE EVERY MORNING WITH BREAKFAST 90 capsule 3 fluticasone (Flonase) 50 MCG/ACT nasal spray SPRAY 1-2 SPRAYS INTO EACH NOSTRIL ONCE DAILY IN THE MORNING 48 g 0 Ketotifen Fumarate 0.035 % solution PLACE TWO DROPS IN THE AFFECTED EYE(S) ONCE DAILY 5 mL 0 lisinopril-hydroCHLOROthiazide 20-12.5 MG tablet TAKE ONE TABLET EVERY MORNING 90 tablet 1 metoprolol succinate XL (Toprol-XL) 100 MG 24 hr tablet TAKE ONE TABLET EVERY MORNING 90 tablet 1 nicotine polacrilex (Commit) 2 MG lozenge Take 1 tablet by mouth. Every 2 hours dissolved slowly inthe mouth as needed pantoprazole (ProtoNix) 40 MG EC tablet TAKE ONE TABLET EVERY MORNING 90 tablet 1 varenicline (Chantix Continuing Month ) 1 MG tablet Take 1 tablet (1 mg) by mouth 2 times daily.Take with full glass of water. 60 tablet 2 varenicline (Chantix) 1 MG tablet Take 1 tablet (1 mg) by mouth 2 times daily. Take with full glassof water. 60 tablet 3 Varenicline Tartrate, Starter, (Chantix Starting ) 0.5 MG X 11 & 1 MG X 42 tablet therapy pack Take 0.5 mg by mouth in the morning for 3 days, THEN 0.5 mg 2 times daily for 4 days, THEN 1 mg 2 times daily. 53 each 0 No current facility-administered medications on file prior to visit. No Known Allergies Review of Systems Constitutional: Negative for malaise/fatigue. Eyes: Negative for blurred vision. Respiratory: Negative for shortness of breath. Cardiovascular: Negative for chest pain, palpitations, orthopnea and PND. Musculoskeletal: Negative for neck pain. Neurological: Negative for headaches. Objective BP 138/84 (BP Location: Left arm, Patient Position: Sitting, BP Cuff Size: Adult) Pulse 51 Temp97.8 ??F (36.6 ??C) (Oral) Resp 20 Ht 5' 4 (1.626 m) Wt 213 lb (96.6 kg) SpO2 94% BMI 36.56 kg/m?? Physical Exam Constitutional: General: He is not in acute distress. Appearance: Normal appearance. He is obese. He is not ill-appearing, toxic- appearing or diaphoretic. Cardiovascular: Rate and Rhythm: Normal rate. Heart sounds: Normal heart sounds. Pulmonary: Effort: Pulmonary effort is normal. Neurological: General: No focal deficit present. Mental Status: He is alert. Psychiatric: Mood and Affect: Mood normal. Assessment/Plan Diagnoses and all orders for this visit: Essential hypertension Comments: Controlled No change in management. Orders: - Lipid Panel, Standard; Future Allergic rhinitis due to other allergic trigger, unspecified seasonality Comments: Continue with Kaley as prescribed Mixed hyperlipidemia Comments: Lipid panel before the next visit Patient will be contacted with the results. No change in medication for now. Laryngitis - predniSONE (Deltasone) 20 MG tablet; Take 1 tablet (20 mg) by mouth Once per day for 5 days. Bronchitis - Pulmonary Function Test; Future - predniSONE (Deltasone) 20 MG tablet; Take 1 tablet (20 mg) by mouth Once per day for 5 days. - albuterol 108 (90 Base) MCG/ACT inhaler; Inhale 2 puffs every 6 (six) hours if needed for wheezing. - doxycycline (Vibra-Tabs) 100 MG tablet; Take 1 tablet (100 mg) by mouth 2 times daily for 10 days. Take with a full glass of water and do not lie down for at least 30 minutes after. Acute cough Comments: smoking cessation Orders: - albuterol 108 (90 Base) MCG/ACT inhaler; Inhale 2 puffs every 6 (six) hours if needed for wheezing. - doxycycline (Vibra-Tabs) 100 MG tablet; Take 1 tablet (100 mg) by mouth 2 times daily for 10 days. Take with a full glass of water and do not lie down for at least 30 minutes after. - benzonatate (Tessalon Perles) 100 MG capsule; Take 1 capsule (100 mg) by mouth if needed in the morning, at noon, and at bedtime for cough for up to 7 days. Do not crush or chew. Bronchitis Comments: smoking cessations ? bronchospasm Albuterol and Prednisone as directed Follow up in 2 days if no improvement. Orders: - Pulmonary Function Test; Future - predniSONE (Deltasone) 20 MG tablet; Take 1 tablet (20 mg) by mouth Once per day for 5 days. - albuterol 108 (90 Base) MCG/ACT inhaler; Inhale 2 puffs every 6 (six) hours if needed for wheezing. - doxycycline (Vibra-Tabs) 100 MG tablet; Take 1 tablet (100 mg) by mouth 2 times daily for 10 days. Take with a full glass of water and do not lie down for at least 30 minutes after. Tobacco dependence syndrome Comments: Continue w/ Varenicline maintenance Follow up in 3 months. Orders: - varenicline (Chantix) 1 MG tablet; Take 1 tablet (1 mg) by mouth 2 times daily. Take with full glass of water. documented in this encounter Plan of Treatment Upcoming Encounters Date Type Department Care Team (Late st Contact Info) Description 04/14/2024 4:00 PM EST Office Visit [facility] MED & PEDS [address] [place] [address] Maddy Malave MD [address] [place] [address] Scheduled Orders Name Type Priority Associated Diagnoses Orde r Schedule Lipid Panel, Standard Lab Routine Essential hypertension Expected: 03/02/2024 (Approximate), Expires: 03/02/2025 Pulmonary Function Test PFT Routine Bronchitis Expected: 03/02/2024, Expires: 08/30/2024 documented as of this encounter Goals Goal Patient Goal Type Associated Problems Recent Progress Patient-Stated? Author Blood Pressure < 140/90 Blood Pressure 138/84(2024 3:26 PM EST) No DellogVijay garrido, PharmD Smoking cessation General No Vijay Lundberg, PharmD documented as of this encounter Visit Diagnoses Diagnosis Essential hypertension- Primary Unspecified essential hypertension Allergic rhinitis due to other allergic trigger, unspecified seasonality Mixed hyperlipidemia Laryngitis Acute laryngitis, without mention of obstruction Bronchitis Bronchitis, not specified as acute or chronic Acute cough Tobacco dependence syndrome Tobacco use disorder documented in this encounter Additional Health Concerns Assessment Noted Time PHQ-9 Depression Total Score: 0 09/25/19 24 3:09 PM EDT documented as of this encounter Care Teams Communications Maintainer Relationship Specialty Start Date End Date Maddy Malave MD [address] [place] [address] PCP - General Internal Medicine 09/26/13 Vijay Lundberg PharmD 505 [place] [address] Pharmacist Internal Medicine 02/03/22 documented as of this encounter
== END 2024-03-30 15:22 | disposition home or self-care (01) ==
PROVIDERS: PCP Internal Medicine; Visit Provider Surgery
DX: D17.22 Benign lipomatous neoplasm of skin and subcutaneous tissue of left arm (principal)
CPT/HCPCS: 23071

== ENCOUNTER 2024-03-30 14:45 | Outpatient (REF) | payer MEDICAID, SELFPAY ==
--- OUTSIDE RECORDS SUMMARY | 2024-03-30 16:22 | XMS_ITS | Encounter Summary ---
Author Organization [employer] Address [address] [place] [address] Care Team Providers Care Lean Leader Name Role Phone Maddy Malave MD Primary Care Provider +1- [phone] Vijay Lundberg PharmD Unavailable Unavail able Encounter Details Date Type Department Care Team (Latest Contact Info) Description 03/03/2024 Travel Social History Tobacco Use Types Packs/Day Years Used Date Smoking Tobacco: Some Days Cigarettes 0.3 48.1 Started: 1978 Smokeless Tobacco: Never Comments:Smoking [id number], o nly smoking 1-2cig/day, currently 0 Alcohol [...] Description 04/14/2024 4:00 PM EST Office Visit [facility] MED & PEDS [address] [place] [address] Maddy Malave MD [address] [place] [address] documented as of this encounter Goals Goal [...] documented as of this encounter Care Teams Lean Leader Relationship Specialty Start Date End Date Maddy Malave MD [address] [place] [address] PCP - General Internal Medicine 09/26/13 Vijay Lundberg, PharmD [address] [place] [address] Pharmacist Internal Medicine 02/03/22 documented as of this encounter
--- OUTSIDE RECORDS SUMMARY | 2024-03-30 16:22 | XMS_ITS | Encounter Summary ---
Author Organization [employer] Address [address] [facility] 7t [place] [address] Care Team Providers Care Guide Travel Name Role Phone Maddy Malave MD Primary Care Provider +1- [phone] Vijay Lundberg PharmD Unavailable Unavail able Reason for Visit * Reason Comments Med Refill Encounter Details Date Type Department Care Team ([facility] st Contact Info) Description 03/17/2024 Refill [facility] CHC MED & PEDS [address] [place] [address] Maddy Malave MD [address] [place] [address] Primary hypertension Social History Tobacco Use Types Packs/Day Years Used Date Smoking Tobacco: Some Days Cigarettes 0.3 48.1 Started: 1978 Smokeless Tobacco: Never Comments:Smoking [id number], o nly smoking 1-2cig/day, currently 0 Alcohol [...] Description 04/14/2024 4:00 PM EST Office Visit [facility] MED & PEDS [address] [place] [address] Maddy Malave MD [address] [place] [address] documented as of this encounter Goals Goal [...] documented as of this encounter Care Teams Guide Travel Relationship Specialty Start Date End Date Maddy Malave MD [address] [place] [address] PCP - General Internal Medicine 09/26/13 Vijay Lundberg PharmD [address] [place] [address] Pharmacist Internal Medicine 02/03/22 documented as of this encounter
--- OUTSIDE RECORDS SUMMARY | 2024-03-30 16:22 | XMS_ITS | Clinical Summary ---
Author Organization [employer] Address [address] [facility] 7t [place] [address] Care Team Providers Care Welfare Worker Name Role Phone Maddy Malave MD Primary Care Provider +1- [phone] Vijay Lundberg PharmD Unavailable Unavail able Allergies [...] Type Department Care Team Description 03/17/2024 Refill [facility] MED & PEDS [address] [facility] [place] [address] Maddy Malave MD Primary hypertension 03/03/2024 Travel 03/02/2024 3:30 PM EST Office Visit [facility] MED & PEDS [address] [facility] [place] [address] Maddy Malave MD Essential hypertension (Primary Dx); Allergic rhinitis due to other allergic trigger, unspecified seasonality; Mixed hyperlipidemia; Laryngitis; Bronchitis; Acute cough; Bronchitis; Tobacco dependence syndrome 03/02/2024 Travel 01/09/2024 Refill [facility] MED & PEDS [address] [place] [address] Maddy Malave MD Allergic rhinitis due to other allergic trigger, unspecified seasonality 01/04/2024 Telephone [facility] MED & PEDS [address] [place] [address] Maddy Malave MD Results 01/01/2024 Travel 12/31/2023 4:00 PM EST Office Visit [facility] MED & PEDS [address] [place] [address] Maddy Malave MD Essential hypertension (Primary Dx); [...] Q uit: Yes; Counseling Given: Yes Comments:Smoking [id number], only smoking 1-2cig/day, currently 0 Alcohol Use [...] Description 04/14/2024 4:00 PM EST Office Visit [facility] MED & PEDS [address] [place] [address] Maddy Malave MD [address] [place] [address] Health Maintenance Due Date Last Done Comments [...] Free T4 3.02 0.32 - 4.0 uIU/mL [facility] Blood Venous blood specimen / Unknown 12/31/2023 8:18 AM EST 12/31/2023 2:50 PM EST us Maddy Malave MD LAB BLOOD ORDERABLES Final Result [facility] [address] [place] [phone] * Hepatitis C Viral RNA, Quantitative, Real-Time PCR (12/31/2023 8:18 AM EST) Hepatitis C Viral Load <15 NOT DETECTED NOT DETECTED IU/mL [facility] HCV Log PCR <1.18 NOT DETECTED NOT DETECTED Log IU/mL [facility] Comment:For additional infor rm, please refer [email or web address].[employer]/faq/[email or web address](This link is being provided for informational/educational purposes only.)THIS TEST WAS PERFORMED AT:[employer] [place] [id number] CAM MD Blood Venous blood specimen / Unknown 12/31/2023 8:18 AM EST 12/31/2023 2:50 PM EST us Maddy Malave MD LAB BLOOD ORDERABLES Final Result [facility] [address] [place] [phone] [phone] * (ABNORMAL) CBC auto differential (12/31/2023 8:18 AM EST) White Blood Count 8.8 4.8 - 10.8 X10*3/uL [facility] Red Blood Count 4.24(L) 4.60 - 5.80 X10*6/uL [facility] Hemoglobin 14.1 14.0 - 18.0 g/dl [facility] Hematocrit 42.0 42.0 - 52.0 % [facility] Mean Corpuscular Volume 99.1(H) 80.0 - 98.0 fL [facility] Mean Corpuscular Hemoglobin 33.3(H) 27.0 - 33.0 pg [facility] Mean Corpuscular HGB Conc 33.6 31.0 - 36.0 g/dl [facility] Red Cell Distribution Width 13.8 11.0 - 16.0 % [facility] Platelet Count 356 160 - 400 X10*3/uL [facility] Mean Platelet Volume 11.5 9.4 - 12.4 fL [facility] Neutrophils Percent Auto 54.9 45 - 73 % [facility] Imm Gran Pct Auto 0.3 0.0 - 0.4 % [facility] Lymphocytes Percent Auto 32.7 20 - 40 % [facility] Monocytes Percent Auto 7.4 2 - 11 % [facility] Eosinophils Percent Auto 3.1 0 - 4 % [facility] Basophils Percent Auto 1.6 0 - 2 % [facility] NRBC Pct Auto 0.0 0.0 - 0.2 /100WBC [facility] Neutrophils Absolute Auto 4.9 2.0 - 8.3 x10*3/uL [facility] Imm Gran Abs Auto 0.03 0.00 - 0.03 X10*3/uL [facility] Lymphocytes Absolute Auto 2.9 1.2 - 4.9 X10*3/uL [facility] Monocytes Absolute Auto 0.7 0.1 - 1.2 X10*3/uL [facility] Eosinophils Absolute Auto 0.3 0.0 - 0.4 X10*3/uL [facility] Basophils Absolute Auto 0.1 0.0 - 0.2 X10*3/uL [facility] NRBC Abs Auto 0.000 0.0 - 0.012 X10*3/uL [facility] Blood Venous blood specimen / Unknown 12/31/2023 8:18 AM EST 12/31/2023 2:50 PM EST us Maddy Malave MD LAB BLOOD ORDERABLES Final Result [facility] [address] [place] [phone] * (ABNORMAL) Lipid Panel, Standard (12/31/2023 8:18 AM EST) Triglycerides 523(H) <150 mg/dL [facility] Comment:Slight Lipemia.Elias able Triglyceride: less than 150 mg/dLBorderline High Triglyceride 150-199 mg/dLHigh Triglyceride: 200-499 mg/dLVery High Triglyceride: greater than or equal to 5OO mg/dL Cholesterol 289(H) <200 mg/dL [facility] Comment:Desirable Cholestero l: less than 200 mg/dLBorderline High Cholesterol: 200-239 mg/dLHigh Cholesterol: greater than 239 mg/dL LDL Cholesterol Calculated TNP <100 mg/dL [facility] Comment:Unable to calculate the LDL. The formula of Friedwald,Bui, and Talita is only valid if the triglycerides areless than 400 mg/dl. HDL Cholesterol 15(L) >40 mg/dL [facility] Comment:Desirable HDL: great er than 40 mg/dL Note: This HDL assay may give artificially low results in patients with liver disease. Blood Venous blood specimen / Unknown 12/31/2023 8:18 AM EST 12/31/2023 2:50 PM EST us Maddy Malave MD LAB BLOOD ORDERABLES Final Result [facility] [address] [place] [address] [phone] * (ABNORMAL) Comprehensive Metabolic Panel (12/31/2023 8:18 AM EST) Sodium 139 135 - 145 mmol/L [facility] Potassium 3.7 3.3 - 5.1 mmol/L [facility] Chloride 105 96 - 108 mmol/L [facility] Carbon Dioxide 25 22 - 29 mmol/L [facility] Anion Gap 13 12 - 20 [facility] Urea Nitrogen (BUN) 19(H) 9 - 16 mg/dL [facility] Creatinine, Serum 0.70 0.5 - 1.4 mg/dL [facility] Estimated Glomerular Filt Rate >60 [facility] Comment:NOTE: For -Am erican individuals, multiply the result by 1.210.Chronic Kidney Disease: Estimated GFR < 60 mL/min/1.27r9Xoeqsb Kidney Disease: Estimated GFR < 15 mL/min/1.73m2 Glucose 98 60 - 115 mg/dL [facility] Calcium 10.4(H) 8.4 - 10.2 mg/dL [facility] Bilirubin, Total 0.8 0.0 - 1.0 mg/dL [facility] Aspartate Amino Transferase 40(H) 5 - 37 U/L [facility] Alanine Aminotransferase 28 0 - 40 U/L [facility] Total Protein 7.9 6.5 - 8.0 g/dL [facility] Albumin Level 4.5 3.5 - 5.0 g/dL [facility] Alkaline Phosphatase 72 39 - 117 U/L [facility] Blood Venous blood specimen / Unknown 12/31/2023 8:18 AM EST 12/31/2023 2:50 PM EST Maddy Malave MD LAB BLOOD ORDERABLES Final Result [facility] [address] [place] [phone] from Last [address] [place] [address] [place] [address] C3 Care Teams Welfare Worker Relationship Specialty Start Date End Date Maddy Malave MD [address] [place] [address] PCP - General Internal Medicine 09/26/13 Vijay Lundberg, MaggieD [address] [place] [address] Pharmacist Internal Medicine 02/03/22
--- OUTSIDE RECORDS SUMMARY | 2024-03-30 16:23 | XMS_ITS | Encounter Summary ---
Author Organization [employer] Address [address] [place] [address] [address]t [place] [address] Care Team Providers Care Universal Branch Consultant Name Role Phone Maddy Malave MD Primary Care Provider +1- [phone] Vijay Lundberg PharmD Unavailable Unavail able Reason for Referral * PFT (Routine) - Authorized Specialty Diagnoses / Procedures Referred By Contneena t Referred To Contact Diagnoses Smoking Bronchitis Procedures Pulmonary Function Test Maddy Malave MD [address] [place] [address] Phone: tel: fax: [address] Phone: tel: fax: Referral ID Status Reason Start Date Expiration Date V isits Requested Visits Authorized [id number] Authorized 03/02/2024 03/02/2025 1 1 Reason for Visit * Reason Comments Hypertension Encounter Details Date Type Department Care Team (Late st Contact Info) Description 03/02/2024 3:30 PM EST Office Visit [facility] MED & PEDS [address] [place] [address] Maddy Malave MD [address] [place] [address] Essential hypertension (Primary Dx); Allergic rhinitis due to other allergic trigger, unspecified seasonality; Mixed hyperlipidemia; Laryngitis; Bronchitis; Acute cough; Bronchitis; Tobacco dependence syndrome Social History Tobacco Use Types Packs/Day Years Used Date Smoking Tobacco: Some Days Cigarettes 0.3 48.1 Started: 1978 Smokeless Tobacco: Never Comments:Smoking [id number], o nly smoking 1-2cig/day, currently 0 Alcohol [...] the past 12 months, has t he [employer], gas, oil or water company threatened to [...] or sick contact.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 Also uses [place] totally awesome at his job to remove [...] Description 04/14/2024 4:00 PM EST Office Visit [facility] MED & PEDS [address] [place] [address] Maddy Malave MD [address] [place] [address] Scheduled Orders Name Type Priority Associated Diagnoses [...] documented as of this encounter Care Teams Universal Branch Consultant Relationship Specialty Start Date End Date Maddy Malave MD [address] [place] [address] PCP - General Internal Medicine 09/26/13 Vijay Lundberg PharmD [address] [place] [address] Pharmacist Internal Medicine 02/03/22 documented as of this encounter
--- OUTSIDE RECORDS SUMMARY | 2024-03-30 16:23 | XMS_ITS | Encounter Summary ---
Author Organization [employer] Address [address] [place] [address] Care Team Providers Care Authorization Manager Name Role Phone Maddy Malave MD Primary Care Provider +1- [phone] Vijay Lundberg PharmD Unavailable Unavail able Encounter Details Date Type Department Care Team (Latest Contact Info) Description 03/02/2024 Travel Social History Tobacco Use Types Packs/Day Years Used Date Smoking Tobacco: Some Days Cigarettes 0.3 48.1 Started: 1978 Smokeless Tobacco: Never Comments:Smoking [id number], o nly smoking 1-2cig/day, currently 0 Alcohol [...] Description 04/14/2024 4:00 PM EST Office Visit [facility] MED & PEDS [address] [place] [address] Maddy Malave MD [address] [place] [address] documented as of this encounter Goals Goal [...] documented as of this encounter Care Teams Authorization Manager Relationship Specialty Start Date End Date Maddy Malave MD [address] [place] [address] PCP - General Internal Medicine 09/26/13 Vijay Lundberg, PharmD [address] [place] [address] Pharmacist Internal Medicine 02/03/22 documented as of this encounter
--- OUTSIDE RECORDS SUMMARY | 2024-03-30 16:23 | XMS_ITS | Encounter Summary ---
Author Organization [employer] Address [address] [facility] 7t [place] [address] Care Team Providers Care Band Saw Operator Name Role Phone Maddy Malave MD Primary Care Provider Vijay Lundberg PharmD Unavailable Unavail able Encounter Details Date Type Department Care Team (Late Contact Info) Description 09/11/2022 Orders Only [facility] MED & PEDS [address] [place], [place] [phone] Maddy Malave MD 505 [place] [address] Chronic left shoulder pain (Primary Dx) Social History Tobacco Use Types Packs/Day Years Used Date Smoking Tobacco: Some Days Cigarettes 0.3 48.1 Started: 1978 Smokeless Tobacco: Never Comments:Smoking [id number], o nly smoking 1-2cig/day, currently 0 Alcohol [...] Upcoming Encounters Date Type Department Care Team ([facility] Contact Info) Description 04/14/2024 4:00 PM EST Office Visit [facility] MED & PEDS 505 [place], [place] [phone] Maddy Malave MD [address] [place], [place] [phone] documented as of this encounter Goals Goal Patient Goal Type Associated Problems Recent Progress Patient-Stated? Author Blood Pressure < 140/90 Blood Pressure 138/84(2024 3:26 PM EST) No Vijay Lundberg, PharmBrandon Smoking cessation General No Vijay Lundberg PharmD documented as of this encounter Visit Diagnoses Diagnosis Chronic left shoulder pain- Primary Pain in joint, shoulder region documented in this encounter Care Teams Band Saw Operator Relationship Specialty Start Date End Date Maddy Malave MD [address] [place] [address] PCP - General Internal Medicine 09/26/13 Vijay Lundberg PharmD [address] [place] [address] Pharmacist Internal Medicine 02/03/22 documented as of this encounter
--- OUTSIDE RECORDS SUMMARY | 2024-03-30 16:23 | XMS_ITS | Encounter Summary ---
Author Organization [employer] Address [address] [place] [address] 7t [place] [address] Care Team Providers Care Data Entry Email Processor Name Role Phone Maddy Malave MD Primary Care Provider [phone] Vijay Lundberg PharmD Unavailable Unavail able Encounter Details Date Type Department Care Team (Late Contact Info) Description 11/12/2022 Orders Only [facility] MED & PEDS 505 [place] [address] Maddy Malave MD [address] [place] [address] Social History Tobacco Use Types Packs/Day Years Used Date Smoking Tobacco: Some Days Cigarettes 0.3 48.1 Started: 1976 Smokeless Tobacco: Never Comments:Smoking x07ifepr, o nly smoking 1-2cig/day, currently 0 Alcohol [...] 04/14/2024 4:00 PM EST Office Visit [facility] MED & PEDS 505 [place] [address] Maddy Malave MD 505 [place] [address] documented as of this encounter Goals Goal Patient Goal Type Associated Problems Recent Progress Patient-Stated? Author Blood Pressure < 140/90 Blood Pressure 138/84(2024 3:26 PM EST) No Vijay Lundberg, Pedro Pablo Smoking cessation General No Vijay Lundberg PharmD documented as of this encounter Visit Diagnoses Not on filedocumented in this encounter Care Teams Data Entry Email Processor Relationship Specialty Start Date End Date Maddy Malave MD 505 [place] [address] PCP - General Internal Medicine 09/26/13 Vijay Lundberg PharmD 505 [place] [address] Pharmacist Internal Medicine 02/03/22 documented as of this encounter
== END 2024-03-30 14:46 | disposition home or self-care (01) ==
LOC: HO.LNP 14:45
PROVIDERS: PCP Internal Medicine; Visit Provider Surgery
DX: D17.22 Benign lipomatous neoplasm of skin and subcutaneous tissue of left arm (principal)
CPT/HCPCS: 23071; 88304

== ENCOUNTER 2024-04-01 14:55 | Outpatient (REF) | payer MEDICAID, SELFPAY ==
--- NOTE | 2024-04-01 | PFT_ITS ---
Flows: FEV1: 88 % of predicted at 2.84 L FVC: 97 % of predicted at 3.87 L FEV1/FVC: 73 % Bronchodilator response: Present in small to medium airways only Volumes: Total lung capacity: 92 % of predicted at 5.41 L Residual volume: 93 % of predicted at 1.43 L Slow vital capacity: 91 % of predicted at 3.98 L Expiratory reserve volume: 44 % of predicted at 0.47 L Diffusion capacity: Mildly decreased Impression: No obstructive or restrictive ventilatory defect. Bronchodilator response is present small to medium airways only. Decreased expiratory reserve volume suggests extrathoracic restriction likely secondary to abdominal obesity. Decreased diffusion capacity suggests emphysema. MTDD
--- OUTSIDE RECORDS SUMMARY | 2024-04-01 14:58 | XMS_ITS | Encounter Summary ---
Author Organization [email or web address] Address [address] [facility] [address] 7t [place] [address] Care Team Providers Care Steel Crane Operator Name Role Phone Maddy Malave MD Primary Care Provider [phone] Vijay Lundberg PharmD Unavailable Unavail able Encounter Details Date Type Department Care Team (Latest Contact Info) Description 03/02/2024 Travel Social History Tobacco Use Types Packs/Day Years Used Date Smoking Tobacco: Some Days Cigarettes 0.3 48.1 Started: 1978 Smokeless Tobacco: Never Comments:Smoking [id number], o nly smoking 1-2cig/day, currently 0 Alcohol [...] 4:00 PM EST Office Visit [facility] MED & PEDS 505 [place] [address] Maddy Malave MD 505 [place] [address] documented as of this encounter Goals Goal [...] documented as of this encounter Care Teams Steel Crane Operator Relationship Specialty Start Date End Date Maddy Malave MD 505 [place] [address] PCP - General Internal Medicine 09/26/13 Vijay Lundberg, PharmD 505 [place] [address] Pharmacist Internal Medicine 02/03/22 documented as of this encounter
--- OUTSIDE RECORDS SUMMARY | 2024-04-01 14:58 | XMS_ITS | Encounter Summary ---
Author Organization [employer] Address [address] [facility] 7t [place] [address] Care Team Providers Care Immigration Judge Name Role Phone Maddy Malave MD Primary Care Provider [phone] Vijay Lundberg PharmD Unavailable Unavail able Reason for Visit * Reason Comments Med Refill Encounter Details Date Type Department Care Team ([facility] st Contact Info) Description 03/17/2024 Refill [facility] MED & PEDS [address] [place] [address] Maddy Malave MD [address] [place] [address] Primary hypertension Social History Tobacco Use Types Packs/Day Years Used Date Smoking Tobacco: Some Days Cigarettes 0.3 48.1 Started: 1976 Smokeless Tobacco: Never Comments:Smoking [id number], o nly smoking 1-2cig/day, currently 0 Alcohol [...] Description 04/14/2024 4:00 PM EST Office Visit [facility] MED & PEDS [address] [place] [address] Maddy Malave MD [address] [place] [address] documented as of this encounter Goals Goal [...] documented as of this encounter Care Teams Immigration Judge Relationship Specialty Start Date End Date Maddy Malave MD 505 [place] [address] PCP - General Internal Medicine 09/26/13 Vijay Lundberg PharmD [address] [place] [address] Pharmacist Internal Medicine 02/03/22 documented as of this encounter
--- OUTSIDE RECORDS SUMMARY | 2024-04-01 14:58 | XMS_ITS | Encounter Summary ---
Author Organization [employer] Address [address] [facility] [address] 7t [place] [address] Care Team Providers Care Mophead Sewer Name Role Phone Maddy Malave MD Primary Care Provider [phone]- [phone] Vijay Lundberg PharmD Unavailable Unavail able Encounter Details Date Type Department Care Team (Latest Contact Info) Description 03/03/2024 Travel Social History Tobacco Use Types Packs/Day Years Used Date Smoking Tobacco: Some Days Cigarettes 0.3 48.1 Started: 1976 Smokeless Tobacco: Never Comments:Smoking [id number], o nly smoking 1-2cig/day, currently 0 Alcohol [...] [facility] 505 [place] [address] Maddy Malave MD 505 [place] [address] documented as of this encounter Goals Goal [...] documented as of this encounter Care Teams Mophead Sewer Relationship Specialty Start Date End Date Maddy Malave MD 505 [place] [address] PCP - General Internal Medicine 09/26/13 Vijay Lundberg, PharmD 505 [place] [address] Pharmacist Internal Medicine 02/03/22 documented as of this encounter
--- OUTSIDE RECORDS SUMMARY | 2024-04-01 14:58 | XMS_ITS | Clinical Summary ---
Author Organization [employer] Address [address] [facility] 7t [place] [address] Care Team Providers Care Electronics Engineering Technician Name Role Phone Maddy Malave MD Primary Care Provider [phone]- [phone] Vijay Lundberg PharmD Unavailable Unavail able Allergies No known active allergies Medications azelastine (Astelin) 0.1 % nasal spray spray 2 spray by intranasal route 2 times every day in each nostril 08/09/19 22 Active nicotine polacrilex (Commit) 2 MG lozenge Take 1 tablet by mouth. Every 2 hours dissolved slowly in the mouth as needed Active disulfiram (Antabuse) 250 MG tabletIndication s:Alcohol use disorder Take 1 tablet (250 mg) by mouth in the morning. 30 tablet 3 11/12/19 23 Active Varenicline Tartrate, Starter, (Chantix Starting ) 0.5 MG X 11 & 1 MG X 42 tablet therapy packIndications: Tobacco dependence syndrome Take 0.5 mg by mouth in the morning for 3 days, THEN 0.5 mg 2 times daily for 4 days, THEN 1 mg 2 times daily. 53 each 12/24/19 23 Active varenicline (Chantix Continuing ) 1 MG tabletIndication s:Tobacco dependence syndrome Take 1 tablet (1 mg) by mouth 2 times daily. Take with full glass of water. 60 tablet 2 12/24/19 23 Active Diclofenac Sodium 1 % gelIndications:C hronic left shoulder pain,Muscle spasm APPLY 2 GRAM'S TO AFFECTED AREA(s) TWICE DAILY NEEDED 100 g 12/31/19 23 Active fluticasone (Flonase) 50 MCG/ACT nasal sprayIndications :Sinus congestion SPRAY 1-2 SPRAYS INTO EACH NOSTRIL [...] 24 Active fenofibrate micronized (Antara) 130 MG capsuleIndicatio ns:Hypertriglyce ridemia TAKE ONE CAPSULE EVERY MORNING WITH BREAKFAST 90 capsule 3 11/18/19 24 Active Ketotifen Fumarate 0.035 % solutionIndicati ons:Seasonal allergies PLACE TWO DROPS IN THE AFFECTED EYE(S) ONCE DAILY 5 mL 12/28/19 24 Active Allergy Relief 180 MG tabletIndication s:Allergic rhinitis due to other allergic trigger, unspecified seasonality TAKE ONE TABLET EVERY MORNING 90 tablet 1 01/11/20 24 Active albuterol 108 (90 Base) MCG/ACT inhalerIndicatio ns:Acute cough,Bronchitis Inhale 2 puffs every 6 (six) hours if needed for wheezing. 18 g 03/02/19 25 026 Active varenicline (Chantix) 1 MG tabletIndication s:Tobacco dependence syndrome Take 1 tablet (1 mg) by mouth 2 times daily. Take with full glass of water. 60 tablet 3 03/02/19 25 025 Active lisinopril-hydro CHLOROthiazide 20-12.5 MG tabletIndication s:Primary hypertension TAKE ONE TABLET EVERY MORNING 90 tablet 1 03/17/19 25 Active metoprolol succinate XL (Toprol-XL) 100 MG 24 hr tabletIndication s:Primary hypertension TAKE ONE TABLET EVERY MORNING 90 tablet 1 03/17/19 25 Active lisinopril-hydro CHLOROthiazide 20-12.5 MG tabletIndication s:Primary hypertension TAKE ONE TABLET EVERY MORNING 90 tablet 1 09/15/19 24 025 Discontinued metoprolol succinate XL (Toprol-XL) 100 MG 24 hr tabletIndication s:Primary hypertension TAKE ONE TABLET EVERY MORNING 90 tablet 1 09/15/19 24 025 Discontinued predniSONE (Deltasone) 20 MG tabletIndication s:Laryngitis,Bro nchitis Take 1 tablet (20 mg) by mouth Once per day for 5 days. 5 tablet 03/02/19 25 025 doxycycline (Vibra-Tabs) 100 MG tabletIndication s:Acute cough,Bronchitis Take 1 tablet (100 mg) by mouth 2 times daily for 10 days. Take with a full glass of water and do not lie down for at least 30 minutes after. 20 tablet 03/02/19 25 025 benzonatate (Tessalon Perles) 100 MG capsuleIndicatio ns:Acute cough Take 1 capsule (100 mg) by [...] Encounters Date Type Department Care Team Description 03/30/2024 Orders Only GENERIC EXTERNAL DATA DEPARTMENT Provider, Generic External Data 03/17/2024 Refill [facility] MED & PEDS [address] [facility] ERIK [phone] Maddy Malave MD Primary hypertension 03/03/2024 Travel 03/02/2024 3:30 PM EST Office Visit [facility] [address] [facility] ERIK [phone] Bullock MD Essential hypertension (Primary Dx); Allergic rhinitis due to other allergic trigger, unspecified seasonality; Mixed hyperlipidemia; Laryngitis; Bronchitis; Acute cough; Bronchitis; Tobacco dependence syndrome 03/02/2024 Travel 01/09/2024 Refill [facility] [address] [facility] ERIK [phone] Maddy Malave MD Allergic rhinitis due to other allergic trigger, unspecified seasonality 01/04/2024 Telephone [facility] [address] [facility] [place] Howard [phone] Bullock MD Results 01/01/2024 Travel 12/31/2023 4:00 PM EST Office Visit [facility] MED & PEDS [address] [place] [address] Maddy Malave MD Essential hypertension (Primary Dx); [...] Q uit: Yes; Counseling Given: Yes Comments:Smoking q81erxry, only smoking 1-2cig/day, currently 0 Alcohol Use [...] Upcoming Encounters Date Type Department Care Team ([facility] Contact Info) Description 04/14/2024 4:00 PM EST Office Visit [facility] MED & PEDS 505 [place] [address] Maddy Malave MD 505 [place] [address] Health Maintenance Due Date Last Done Comments [...] (Patient Refused) Depression Screening 09/24/2024 09/25/2023, 09/25/19 Alcohol/Substance Use Screening 12/30/2024 12/31/2023 DTaP/Tdap/Td Vaccines [...] Smoking cessation General No Vijay Lundberg, PharmD Procedures Procedure Name Priority Date/Time Associated Diagnosis Comments GROSS AND MICROSCOPIC LEVEL 3 Routine 03/30/2024 3:26 PM EST HEPATITIS C VIRAL RNA, QUANTITATIVE, REAL-TIME PCR [...] hypertension from Last 3 Months Results * Gross and Microscopic Level 3 (03/30/2024 3:26 PM EST) 03/30/2024 3:26 PM EST 03/31/2024 7:32 AM EST [facility] - 04/01/2024 11:43 AM EST ----- ------- Name: Jayy Ortez Jr ? Age/Sex: 48/M ? : 1975 Unit#: [id number] ?? Attend Dr: Apolinar John MD ?Re03/30/24 ?Status: DEP REF ? Location: HO.LNP ?Disch: ? ----- ------- SPEC : [id number] ?RECD: 03/31/24 ? STATUS: ??SOUT ? REQ NUM: [id number] ? DOMINGO: 03/30/24 ? SUBM DR: Apolinar John MD ? ENTERED: ??03/31/24 ?SP TYPE: Surgical ? OTHR DR: Maddy Malave MD ? ORDERED: ??Gross Micro L3 ? Diagnosis ?? Soft tissue, left shoulder, excision: ??Mature lobulated adipose tissue consistent with ?? lipoma; no atypia identified. ?Clinical History Lipoma of left shoulder ?Microscopic Description Microscopic sections reviewed. ? Material Received ?? Lipoma of left shoulder ? Gross Description Received in formalin labeled ?lipoma of left shoulder? are multiple irregular fragments of suarez-yellow lobular adipose tissue ranging from 0.3-4.0 cm in greatest dimension and aggregating 5.0 x 4.2 x 0.5-2.0 cm. ??Due to the fragmented nature in which the specimen is received, the margins can not be evaluated. ??There is scant attached cobb-pink fibrovascular tissue. ??Sectioning reveals homogeneous suarez-yellow lobular fat with scant attached cobb- pink fibrous tissue versus fibrovascular tissue. ??No fleshy, hemorrhagic or necrotic foci are identified. ??Anchorer sections are submitted in cassettes [id number]. CEDS Copies To: ?? Maddy Malave MD ?? [facility] ?? [address] ?? [place] [address] ?? [phone] ?? Apolinar John MD ?? [facility] ?? [address] ?? [place] [address] ?? [phone] ? CONTINUED ON NEXT PAGE ----- ------- Name: Jayy Ortez Jr ? Age/Sex: 48/M ? : 1975 Unit#: [id number] ?? Attend Dr: Apolinar John MD ?Re03/30/24 ?Status: DEP REF ? Location: HO.LNP ?Disch: ? ----- ------- SPEC : [id number] ?RECD: 03/31/24 ? STATUS: ??SOUT ? REQ NUM: [id number] ? DOMINGO: 03/30/24-247 ? SUBM DR: Apolinar John MD ? ENTERED: ??03/31/24 ?SP TYPE: Surgical ? OTHR DR: Maddy Malave MD ? ORDERED: ??Gross Micro L3 ? ----- ------- Signed (signature on file) Fito Issa MD 04/01/24 1143 ? ----- ------- ? END OF REPORT ? us Generic External Data Provider LAB CYTOLOGY ORDE RABLES Final Result Performing Organization Address [facility] Co de Phone Number [facility] [address] [place] [phone] * TSH W/Reflex to FT4 (12/31/2023 8:18 AM EST) TSH reflex Free T4 3.02 0.32 - 4.0 uIU/mL [facility] Blood Venous blood specimen / Unknown 12/31/2023 8:18 AM EST 12/31/2023 2:50 PM EST us Maddy Malave MD LAB BLOOD ORDERABLES Final Result Performing Organization Address [facility] de Phone Number [facility] [address] [place] [phone] * Hepatitis C Viral RNA, Quantitative, Real-Time PCR (12/31/2023 8:18 AM EST) Pathologist [facility] Hepatitis C Viral Load <15 NOT DETECTED NOT DETECTED IU/mL [facility] HCV Log PCR <1.18 NOT DETECTED NOT DETECTED Log IU/mL [facility] Comment:For additional infor mation, please refer [email or web address].[email or web address]/faq/[email or web address](This link is being provided for informational/educational purposes only.)THIS TEST WAS PERFORMED AT:[email or web address] [place] [phone] CAM MD Blood Venous blood specimen / Unknown 12/31/2023 8:18 AM EST 12/31/2023 2:50 PM EST us Maddy Malave MD LAB BLOOD ORDERABLES Final Result Performing Organization Address [facility] Co de Phone Number [facility] [address] [place] [phone] * (ABNORMAL) CBC auto differential (12/31/2023 8:18 AM EST) White Blood Count 8.8 4.8 - 10.8 X10*3/uL [facility] Red Blood Count 4.24(L) 4.60 - 5.80 X10*6/uL [facility] Hemoglobin 14.1 14.0 - 18.0 g/dl [facility] Hematocrit 42.0 42.0 - 52.0 % [facility] Mean Corpuscular Volume 99.1(H) 80.0 - 98.0 fL [facility] Mean Corpuscular Hemoglobin 33.3(H) 27.0 - 33.0 pg [facility] Mean Corpuscular HGB Conc 33.6 31.0 - 36.0 g/dl [facility] Red Cell Distribution Width 13.8 11.0 - 16.0 % [facility] Platelet Count 356 160 - 400 X10*3/uL [facility] Mean Platelet Volume 11.5 9.4 - 12.4 fL [facility] Neutrophils Percent Auto 54.9 45 - 73 % [facility] Imm Gran Pct Auto 0.3 0.0 - 0.4 % [facility] Lymphocytes Percent Auto 32.7 20 - 40 % [facility] Monocytes Percent Auto 7.4 2 - 11 % [facility] Eosinophils Percent Auto 3.1 0 - 4 % [facility] Basophils Percent Auto 1.6 0 - 2 % [facility] NRBC Pct Auto 0.0 0.0 - 0.2 /100WBC [facility] Neutrophils Absolute Auto 4.9 2.0 - 8.3 x10*3/uL [facility] Imm Gran Abs Auto 0.03 0.00 - 0.03 X10*3/uL [facility] Lymphocytes Absolute Auto 2.9 1.2 - 4.9 X10*3/uL [facility] Monocytes Absolute Auto 0.7 0.1 - 1.2 X10*3/uL [facility] Eosinophils Absolute Auto 0.3 0.0 - 0.4 X10*3/uL [facility] Basophils Absolute Auto 0.1 0.0 - 0.2 X10*3/uL [facility] NRBC Abs Auto 0.000 0.0 - 0.012 X10*3/uL [facility] Blood Venous blood specimen / Unknown 12/31/2023 8:18 AM EST 12/31/2023 2:50 PM EST us Maddy Malave MD LAB BLOOD ORDERABLES Final Result Performing Organization Address City/[facility]/ZIP Co de Phone Number [facility] [address] [place] [phone] * (ABNORMAL) Lipid Panel, Standard (12/31/2023 8:18 AM EST) Triglycerides 523(H) <150 mg/dL [facility] Comment:Slight Lipemia.Elias able Triglyceride: less than 150 mg/dLBorderline High Triglyceride 150-199 mg/dLHigh Triglyceride: 200-499 mg/dLVery High Triglyceride: greater than or equal to 5OO mg/dL Cholesterol 289(H) <200 mg/dL [facility] Comment:Desirable Cholestero l: less than 200 mg/dLBorderline High Cholesterol: 200-239 mg/dLHigh Cholesterol: greater than 239 mg/dL LDL Cholesterol Calculated TNP <100 mg/dL [facility] Comment:Unable to calculate the LDL. The formula of Friedwald,Bui, and Talita is only valid if the triglycerides areless than 400 mg/dl. HDL Cholesterol 15(L) >40 mg/dL [facility] Comment:Desirable HDL: great er than 40 mg/dL Note: This HDL assay may give artificially low results in patients with liver disease. Blood Venous blood specimen / Unknown 12/31/2023 8:18 AM EST 12/31/2023 2:50 PM EST us Maddy Malave MD LAB BLOOD ORDERABLES Final Result [facility] [address] [place] [phone] [phone] * (ABNORMAL) Comprehensive Metabolic Panel (12/31/2023 8:18 AM EST) Sodium 139 135 - 145 mmol/L [facility] Potassium 3.7 3.3 - 5.1 mmol/L [facility] Chloride 105 96 - 108 mmol/L [facility] Carbon Dioxide 25 22 - 29 mmol/L [facility] Anion Gap 13 12 - 20 [facility] Urea Nitrogen (BUN) 19(H) 9 - 16 mg/dL [facility] Creatinine, Serum 0.70 0.5 - 1.4 mg/dL [facility] Estimated Glomerular Filt Rate >60 [facility] Comment:NOTE: For -Am erican individuals, multiply the result by 1.210.Chronic Kidney Disease: Estimated GFR < 60 mL/min/1.23k9Khgimx Kidney Disease: Estimated GFR < 15 mL/min/1.73m2 Glucose 98 60 - 115 mg/dL [facility] Calcium 10.4(H) 8.4 - 10.2 mg/dL [facility] Bilirubin, Total 0.8 0.0 - 1.0 mg/dL [facility] Aspartate Amino Transferase 40(H) 5 - 37 U/L [facility] Alanine Aminotransferase 28 0 - 40 U/L [facility] Total Protein 7.9 6.5 - 8.0 g/dL [facility] Albumin Level 4.5 3.5 - 5.0 g/dL [facility] Alkaline Phosphatase 72 39 - 117 U/L [facility] Blood Venous blood specimen / Unknown 12/31/2023 8:18 AM EST 12/31/2023 2:50 PM EST us Maddy Malave MD LAB BLOOD ORDERABLES Final Result [facility] [address] [place] [address] [phone] from Last 3 Months Insurance C3 Care Teams Electronics Engineering Technician Relationship Specialty Start Date End Date Maddy Malave MD 505 [place] [address] PCP - General Internal Medicine 09/26/13 Vijay Lundberg, PharmD 505 [place] [address] Pharmacist Internal Medicine 02/03/22
--- OUTSIDE RECORDS SUMMARY | 2024-04-01 14:58 | XMS_ITS | Encounter Summary ---
Author Organization [employer] Address [address] [facility] 7t [place] [address] Care Team Providers Care Submarine Element Coordinator Name Role Phone Maddy Malave MD Primary Care Provider Vijay Lundberg PharmD Unavailable Unavail able Encounter Details Date Type Department Care Team (Late Contact Info) Description 09/11/2022 Orders Only [facility] [address] [place], [place] [phone] Maddy Malave MD [address] [place] [address] Chronic left shoulder pain (Primary Dx) Social History Tobacco Use Types Packs/Day Years Used Date Smoking Tobacco: Some Days Cigarettes 0.3 48.1 Started: 1978 Smokeless Tobacco: Never Comments:Smoking w03iidty, o nly smoking 1-2cig/day, currently 0 Alcohol [...] Upcoming Encounters Date Type Department Care Team ([facility] Contact Info) Description 04/14/2024 4:00 PM EST Office Visit [facility] [address] [place], [place] [phone] Maddy Malave MD [address] [place], [place] [phone] documented as of this encounter Goals Goal Patient Goal Type Associated Problems Recent Progress Patient-Stated? Author Blood Pressure < 140/90 Blood Pressure 138/84(2024 3:26 PM EST) No Vijay Lundberg, PharmBrandon Smoking cessation General No Vijay Lundberg PharmD documented as of this encounter Visit Diagnoses Diagnosis Chronic left shoulder pain- Primary Pain in joint, shoulder region documented in this encounter Care Teams Submarine Element Coordinator Relationship Specialty Start Date End Date Maddy Malave MD [address] [place] [address] PCP - General Internal Medicine 09/26/13 Vijay Lundberg PharmD [address] [place] [address] Pharmacist Internal Medicine 02/03/22 documented as of this encounter
--- OUTSIDE RECORDS SUMMARY | 2024-04-01 14:58 | XMS_ITS | Encounter Summary ---
Author Organization [employer] Address [address] [place] [address] 7t [place] [address] Care Team Providers Care Pot Fluxer Name Role Phone Maddy Malave MD Primary Care Provider [phone]- [phone] Vijay Lundberg PharmD Unavailable Unavail able Reason for Referral * PFT (Routine) - Authorized Specialty Diagnoses / Procedures Referred By Contneena t Referred To Contact Diagnoses Smoking Bronchitis Procedures Pulmonary Function Test Maddy Malave MD [address] [place] [address] Phone: tel: fax: [address] Phone: tel: fax: Referral ID Status Reason Start Date Expiration Date V isits Requested Visits Authorized [id number] Authorized 03/02/2024 03/02/2025 1 1 Reason for Visit * Reason Comments Hypertension Encounter Details Date Type Department Care Team (Late st Contact Info) Description 03/02/2024 3:30 PM EST Office Visit [facility] MED & PEDS [address] [place] [address] Maddy Malave MD [address] [place] [address] Essential hypertension (Primary Dx); Allergic rhinitis due to other allergic trigger, unspecified seasonality; Mixed hyperlipidemia; Laryngitis; Bronchitis; Acute cough; Bronchitis; Tobacco dependence syndrome Social History Tobacco Use Types Packs/Day Years Used Date Smoking Tobacco: Some Days Cigarettes 0.3 48.1 Started: 1978 Smokeless Tobacco: Never Comments:Smoking q57tbide, o nly smoking 1-2cig/day, currently 0 Alcohol [...] the past 12 months, has t he Tele[employer], gas, oil or water company threatened to [...] or sick contact.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 Also uses [employer] totally awesome at his job to remove [...] Description 04/14/2024 4:00 PM EST Office Visit [facility] MED & PEDS [address] [place] [address] Maddy Malave MD [address] [place] [address] Scheduled Orders Name Type Priority Associated Diagnoses [...] documented as of this encounter Care Teams Pot Fluxer Relationship Specialty Start Date End Date Maddy Malave MD 505 [place] [address] PCP - General Internal Medicine 09/26/13 Vijay Lundberg PharmD 505 [facility] [place] [address] Pharmacist Internal Medicine 02/03/22 documented as of this encounter
--- OUTSIDE RECORDS SUMMARY | 2024-04-01 14:58 | XMS_ITS | Encounter Summary ---
Author Organization [employer] Address [address] [facility] 7t [place] [address] Care Team Providers Care Student Life Coordinator Name Role Phone Maddy Malave MD Primary Care Provider [phone] Vijay Lundberg PharmD Unavailable Unavail able Encounter Details Date Type Department Care Team (Late Contact Info) Description 11/12/2022 Orders Only [facility] MED & PEDS [address] [place] [address] Maddy Malave MD [address] [place] [address] Social History Tobacco Use Types Packs/Day Years Used Date Smoking Tobacco: Some Days Cigarettes 0.3 48.1 Started: 1978 Smokeless Tobacco: Never Comments:Smoking v21rdvda, o nly smoking 1-2cig/day, currently 0 Alcohol [...] 04/14/2024 4:00 PM EST Office Visit [facility] MED & PEDS [address] [place] [address] Maddy Malave MD [address] [place] [address] documented as of this encounter Goals Goal Patient Goal Type Associated Problems Recent Progress Patient-Stated? Author Blood Pressure < 140/90 Blood Pressure 138/84(2024 3:26 PM EST) No Vijay Lundberg, Pedro Pablo Smoking cessation General No Vijay Lundberg PharmD documented as of this encounter Visit Diagnoses Not on filedocumented in this encounter Care Teams Student Life Coordinator Relationship Specialty Start Date End Date Maddy Malave MD [address] [place] [address] PCP - General Internal Medicine 09/26/13 Vijay Lundberg PharmD [address] [place] [address] Pharmacist Internal Medicine 02/03/22 documented as of this encounter
--- OUTSIDE RECORDS SUMMARY | 2024-04-01 14:58 | XMS_ITS | Encounter Summary ---
Author Organization [employer] Address [address] [facility] 7t [place] [address] Care Team Providers Care Hotel Receptionist Name Role Phone Maddy Malave MD Primary Care Provider [phone]- [phone] Vijay Lundberg PharmD Unavailable Unavail able Encounter Details Date Type Department Care Team (Late st Contact Info) Description 03/30/2024 Orders Only GENERIC EXTERNAL DATA DEPARTMENT Provider, Generic External Data Social History Tobacco Use Types Packs/Day Years Used Date Smoking Tobacco: Some Days Cigarettes 0.3 48.1 Started: 1978 Smokeless Tobacco: Never Comments:Smoking j14fteqx, o nly smoking 1-2cig/day, currently 0 Alcohol [...] 4:00 PM EST Office Visit [facility] MED & PEDS [address] [place] [address] Maddy Malave MD [address] [place] [address] documented as of this encounter Goals Goal Patient Goal Type Associated Problems Recent Progress Patient-Stated? Author Blood Pressure < 140/90 Blood Pressure 138/84(2024 3:26 PM EST) No Vijay Lundberg, PharmD Smoking cessation General No Vijay Lundberg, PharmD documented as of this encounter Procedures Procedure Name Priority Date/Time Associated Diagnosis Comments GROSS AND MICROSCOPIC LEVEL 3 Routine 03/30/2024 3:26 PM EST documented in this encounter Results * Gross and Microscopic Level 3 (03/30/2024 3:26 PM EST) 03/30/2024 3:26 PM EST 03/31/2024 7:32 AM EST Narrative [facility] - 04/01/2024 11:43 AM EST ----- ------- Name: Jayy Ortez Jr ? Age/Sex: 48/M ? : 1975 Unit#: [id number] ?? Attend Dr: Apolinar John MD ?Re03/30/24 ?Status: DEP REF ? Location: HO.LNP ?Disch: ? ----- ------- SPEC : [id number] ?RECD: 03/31/24 ? STATUS: ??SOUT ? REQ NUM: [id number] ? DOMINGO: 03/30/24-152 ? SUBM DR: Apolinar John MD ? [...] fleshy, hemorrhagic or necrotic foci are identified. ??Direct Marketing Representative sections are submitted in cassettes A1-A3. CEDS Copies To: ?? Maddy Malave MD ?? [facility] ?? [address] ?? [place] [address] ?? [phone] ?? Apolinar John MD ?? [facility] ?? [address] ?? [place] [address] ?? [phone] ? CONTINUED ON NEXT PAGE ----- ------- Name: Jayy Ortez Jr ? Age/Sex: 48/M ? : 1975 Unit#: [id number] ?? Attend Dr: Apolinar John MD ?Re03/30/24 ?Status: DEP REF ? Location: HO.LNP ?Disch: ? ----- ------- SPEC : [id number] ?RECD: 03/31/24 ? STATUS: ??SOUT ? REQ NUM: [id number] ? DOMINGO: 03/30/24-1526 ? SUBM DR: Apolinar John MD ? ENTERED: ??03/31/24 ?SP TYPE: Surgical ? OTHR DR: Maddy Malave MD ? ORDERED: ??Gross Micro L3 ? ----- ------- Signed (signature on file) Fito Issa MD 04/01/24 1143 ? ----- ------- ? END OF REPORT ? us Generic External Data Provider LAB CYTOLOGY ISH ANSARI Final Result Performing Organization Address City/State/[facility] Co de Phone Number [facility] [address] [place] [address] [phone] documented in this encounter Visit Diagnoses Not on filedocumented in this encounter Additional Health Concerns Assessment Noted Time PHQ-9 Depression Total Score: 0 09/25/19 24 3:09 PM EDT documented as of this encounter Care Teams Hotel Receptionist Relationship Specialty Start Date End Date Maddy Malave MD 505 [facility] [place] [address] PCP - General Internal Medicine 09/26/13 Vijay Lundberg PharmD 505 [facility] [place] [address] Pharmacist Internal Medicine 02/03/22 documented as of this encounter
== END 2024-04-01 14:56 | disposition home or self-care (01) ==
LOC: HO.RESP 14:55
PROVIDERS: PCP Internal Medicine; Visit Provider Internal Medicine
DX: R60.0 Localized edema (principal); J40 Bronchitis, not specified as acute or chronic
CPT/HCPCS: 94010; 94640; 94727; 94729

== ENCOUNTER → 2024-04-01 14:55 | Outpatient (BNV) | payer MEDICAID, SELFPAY | PROVIDERS: PCP Internal Medicine; Visit Provider Internal Medicine Pulmonary Disease | DX: R05.9 Cough, unspecified (principal); F17.210 Nicotine dependence, cigarettes, uncomplicated | CPT/HCPCS: 94060; 94727; 94729 ==

== ENCOUNTER 2024-06-29 14:57 | Outpatient (AMB) | payer MEDICAID, SELFPAY ==
[2024-06-29 15:41] VITALS: BP 120/70; PULSE 49; BMI 37.0
--- NOTE | 2024-06-29 15:41 | MHC.OFFVIS ---
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: No Accompanied by: Self / Same As Patient Allergies No Known Allergies [No Known Allergies*] Allergy (Verified 03/30/24 14:47) Medication List - Last Reconciled 06/29/24 by Jong Vera MD aspirin 81 mg PO DAILY atorvastatin 80 mg PO BEDTIME fenofibrate micronized 130 mg PO QAM fexofenadine 180 mg PO DAILY fluticasone propionate 50 mcg/actuation 1 spray intranasal DAILY ketotifen fumarate 0.025%(0.035%) 2 drps ophthalmic (eye) DAILY lisinopril-hydrochlorothiazide 20-12.5 mg 1 tab PO QAM metoprolol succinate ER 100 mg PO QAM omega-3 acid ethyl esters (Lovaza) 1 cap PO BID pantoprazole 40 mg PO DAILY varenicline tartrate 0.5 mg PO BID HPI Comments Details: Pleasant 48-year-old gentleman here for follow-up. He was seen on May 22, 2021 when he presented with inferior wall OR to [facility]. He was taken for emergent cardiac catheterization where we found 100% occlusion of the right coronary artery which was treated with drug-eluting stents. He did not have any residual disease in the LAD or LCX. He has done well since then. He has no chest pain or shortness of breath. He was using cocaine before but since the procedure he has stopped using it. He also has stop smoking. He had some nosebleeds but they have improved. He continues to take aspirin and Brilinta. No other bleeding concerns. Taking medications regularly. He has not had any fasting lipid panel since February 2019. At that time his LDL was 141, his total cholesterol was 237 and triglycerides were 328. His HDL was 31. 10/29/2022: He returns for follow-up. He has completed 1 year home ticagrelor and he is currently taking aspirin only he denies chest pain or shortness of breath. He is smoking 6 few cigarettes a day and is see history thinking about quitting. Blood pressure control in the office is good. Tolerating medications well. 05/11/2023: Returns for follow-up. He has no chest pain or shortness of breath. Blood pressure mildly elevated. Last blood workup was in October 2022 when total cholesterol was 239, LDL 161, HDL 35 and triglycerides 215. He has been on atorvastatin 80 mg and fenofibrate 130 mg daily. No symptoms clinically. He will need repeat lipid panel. 11/11/2023: He returns for follow-up. He is taking atorvastatin 80 mg and fenofibrate 130 mg. His cholesterol was quite high and on last visit we discussed about doing fasting lipid panel but it appears he has not done that. He is denying any chest discomfort shortness of breath. Otherwise taking medications regularly. 03/14/2024: Jayy is here for follow-up. He had repeat lipid panel in December of 2023 where triglycerides were 523, total cholesterol 289, HDL 15 and LDL test could not be performed. He has been taking atorvastatin 80 mg and fenofibrate 130 mg daily. Blood pressure is well controlled. He has stopped smoking recently. He continues to drink alcohol which we discussed about. Denying chest pain or shortness of breath otherwise. 06/29/2024: Jayy is here for follow-up. He has stopped drinking and smoking. No chest pain or shortness of breath. Last triglycerides number was 523 he was started on Lovaza. He has not had any repeat blood workup since then. 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 Review of Systems Const Denies chills, Denies fatigue, Denies fever(s), Denies frequent falls, Denies weakness, Denies weight gain and Denies weight loss ENT Denies dizziness Card Denies chest pain, Denies leg edema, Denies lightheadedness, Denies palpitations, Denies dyspnea and Denies dyspnea on exertion Resp Denies cough, Denies dyspnea and Denies dyspnea on exertion GI Denies hematochezia Musc Denies abnormal gait, Denies muscle weakness, Denies numbness, Denies radiating pain into limb and Denies tingling Neuro Denies abnormal gait, Denies dizziness, Denies frequent falls, Denies numbness, Denies tingling and Denies weakness Endo Denies fatigue and Denies palpitations Physical Exam Vital Signs: Last Vital Signs Pulse 49 L 06/29/24 15:41 BP 120/70 06/29/24 15:41 BMI result Body Mass Index 37.0 GENERAL APPEARANCE: in no acute distress, pleasant. NECK: no carotid bruit, no jugular venous distention. SKIN: no suspicious lesions, warm and dry. HEART: no murmurs, regular rate and rhythm. LUNGS: clear to auscultation bilaterally. ABDOMEN: soft, nontender. EXTREMITIES: no edema. PERIPHERAL PULSES: equal. NEUROLOGIC: No gross deficits, AAO X 3 Office Procedures EKG Details: sinus bradycardia 49 beats per minute, normal axis, inferior infarct, QTC 442 milliseconds. 52519-Cetbwsjxnquaslkjv, Complete Assessment & Plan Assessment & Plan (1) Coronary artery disease: Code(s): I25.10 - Atherosclerotic heart disease of [place] coronary artery without angina pectoris Category: Medical (2) S/P coronary angioplasty: Code(s): Z98.61 - Coronary angioplasty status Category: Surgical (3) Hyperlipidemia: Code(s): E78.5 - Hyperlipidemia, unspecified Category: Medical Plan [age] year gentleman who is here for follow-up. He had inferior wall OR in April of 2021 and underwent drug-eluting stents to mid right coronary artery. he has done well since then. More recently has stopped smoking and drinking. He is compliant with medications. We added Lovaza for high triglycerides. He needs repeat lipid panel which I will request. I have advised him to do a fasting lipid panel. Same medications otherwise. Blood pressure well controlled. Follow-up in 4 months. Thank you for allowing me to participate in the care of your patient. Please feel free to contact me if you have any questions. Orders: Orders Lipid Panel Today E78.5 - Hyperlipidemia, unspecified Coding Level of Care Code Est Pt Level 4 (75283) Diagnoses Coronary artery disease I25.10 S/P coronary angioplasty Z98.61 Hyperlipidemia E78.5 CPT Codes EKG - CPT: 64266-Gyydmprhbjyfsnvst, Complete ([id number])
--- OUTSIDE RECORDS SUMMARY | 2024-06-29 16:01 | XMS_ITS | Clinical Summary ---
Author Organization [employer] Address [address] [facility] 7t [place] [address] Care Team Providers Care Certified Vehicle Fire Investigator Name Role Phone Maddy Malave MD Primary Care Provider +1- [phone] Vijay Lundberg PharmD Unavailable Unavail able Allergies [...] water. 60 tablet 2 12/24/19 23 Active fluticasone (Flonase) 50 MCG/ACT nasal sprayIndications :Sinus congestion SPRAY 1-2 SPRAYS INTO EACH NOSTRIL ONCE DAILY IN THE MORNING 48 g 08/18/19 24 Active atorvastatin (Lipitor) 80 MG tablet TAKE ONE TABLET EVERY EVENING 90 tablet 3 11/18/19 24 Active fenofibrate micronized (Antara) 130 [...] wheezing. 18 g 03/02/19 25 026 Active lisinopril-hydro CHLOROthiazide 20-12.5 MG tabletIndication s:Primary hypertension TAKE ONE TABLET EVERY MORNING 90 tablet 1 03/17/19 25 Active metoprolol succinate XL (Toprol-XL) 100 MG 24 hr tabletIndication s:Primary hypertension TAKE ONE TABLET EVERY MORNING 90 tablet 1 03/17/19 25 Active Diclofenac Sodium 1 % gelIndications:C hronic left shoulder pain,Muscle spasm APPLY 2 GRAM'S TO AFFECTED AREA(s) TWICE DAILY NEEDED 100 g 04/14/19 25 Active Aspirin Adult Low Strength 81 MG EC tablet TAKE ONE TABLET EVERY MORNING 90 tablet 1 05/20/19 25 Active pantoprazole (ProtoNix) 40 MG EC tablet TAKE ONE TABLET EVERY MORNING 90 tablet 1 05/20/19 25 Active varenicline (Chantix) 1 MG tabletIndication s:Tobacco dependence syndrome TAKE ONE TABLET TWICE DAILY WITH WATER 56 tablet 3 06/24/19 25 Active varenicline (Chantix) 1 MG tabletIndication s:Tobacco dependence syndrome Take 1 tablet (1 mg) by mouth 2 times daily. Take with full glass of water. 60 tablet 3 03/02/19 25 025 Discontinued Active Problems Problem Noted Date Diagnosed Date Colon cancer screening 11/06/2023 Class 2 obesity 05/28/2022 Myocardial infarction 01/13/2022 Essential hypertension 06/24/2016 Hyperlipidemia 01/12/2013 Allergic rhinitis 11/23/2012 Gastroesophageal reflux disease 11/23/2012 History of cholecystectomy 11/23/2012 Tobacco dependence syndrome 11/23/2012 Encounters Date Type Department Care Team Description 06/23/2024 Refill [facility] MED & PEDS [address] [place] [address] Maddy Malave MD Tobacco dependence syndrome 05/18/2024 Refill [facility] MED & PEDS [address] [facility] [place] [address] Maddy Malave MD 05/06/2024 Population Health Risk Score [facility] ([facility]) Department [address] [place] [phone] Provider, Population Health Generic 04/14/2024 4:00 PM EST Office Visit [facility] MED & PEDS [address] [facility] [place] [address] Maddy Malave MD Essential hypertension (Primary Dx); Dietary counseling; Exercise counseling; Class 2 severe obesity due to excess calories with serious comorbidity and body mass index (BMI) of 37.0 to 37.9 in adult (CMS/HCC); Chronic left shoulder pain; Muscle spasm; Tobacco dependence syndrome; Lipoma of torso 04/14/2024 Travel from Last 3 Months Immunizations Name Administration Dates Next Due Influenza, Split (incl. purified surface antigen ) 11/23/2012 TD (adult), 2 Lf tetanus tox oid, preservative free, adsorbed 05/08/2002 Tdap 03/01/2015 Social History Tobacco Use Types Packs/Day Years Used Date Smoking Tobacco: Some Days Cigarettes 0.3 48.3 Started: 1978 Smokeless Tobacco: Never Tobacco Cessation:Ready to Q uit: Yes; Counseling Given: Yes Comments:Smoking a55bqhof, only smoking 1-2cig/day, currently 0 Alcohol Use [...] getting things needed for daily living? No 04/14/2024 Utilities Answer Date Recorded In the past 12 months, has t he electric, gas, oil or water company threatened to shut off services in your home? No 09/25/2023 Depression Answer Date Recorded Patient Health Questionnaire-2 Score 0 09/25/2023 Internet Access Answer Date Recorded Internet Access Q1 Yes 04/14/2024 Internet Access Q2 Not on file 04/14/2024 Sex and Gender Information Value Date Recorded Sex Assigned at Male 12/23/2021 10:16 AM EDT Legal Sex Male 10:16 AM EDT Gender Identity Male 12/23/2021 10:16 AM EDT Sexual Orientation Straight 12/23/2021 10 :16 AM EDT Last Filed Vital Signs Vital Sign Reading Time Taken Comments Blood Pressure 136/84 04/14/2024 3:49 PM EST Pulse 54 04/14/2024 3:49 PM EST Temperature 36.7 ??C (98.1 ??F) 04/14/2024 3:49 PM ES T Respiratory Rate 21 04/14/2024 3:49 PM EST Oxygen Saturation 98% 04/14/2024 3:49 PM EST Inhaled Oxygen Concentration - - Weight 99.3 kg (219 lb) 04/14/2024 3:49 PM EST Height 162.6 cm (5' 4 ) 04/14/2024 3:49 PM EST Body Mass Index 37.59 04/14/2024 3:49 PM EST Plan of Treatment Upcoming Encounters Date Type Department Care Team (Late st Contact Info) Description 07/14/2024 3:15 PM EDT Office Visit [facility]EDS [address] [place] [address] Maddy Malave MD [address] [place] [address] Health Maintenance Due Date Last Done Comments CT Colonography 1975 Colonoscopy 1975 Colorectal Cancer Screening 1975 FIT DNA/Cologuard 1975 FIT 1975 FOBT 1975 HIV Screening 1975 Sigmoidoscopy 1975 Family Planning (PISQ) 1988 Hepatitis B Vaccines (1 of 3 - 19+ 3-dose series) 1992 Pneumococcal Vaccine: 50+ Years (1 of 2 - PCV) 1992 Zoster Vaccines (1 of 2) 12/29/2023 Influenza Vaccine (#1) 2024 11/23/2012 Postp oned from 10/25/2023 (Patient Refused) Depression Screening 09/24/2024 09/25/2023, 09/25/19 Alcohol/Substance Use Screening 12/30/2024 12/31/2023 DTaP/Tdap/Td Vaccines (2 - Td or Tdap) 03/01/2025 03/01/2015, 05/08/2002 COVID-19 Vaccine ( - 2023- season) 2025 Postponed from 10/25/2023 (Patient Refused) SDOH Screening 04/14/2025 04/14/2024 Tobacco Screening 04/14/2025 04/14/2024 Lipid Panel 12/30/2028 12/31/2023, 10/24, 02/03/2022, Additional history exists RSV Patients and Patients Aged 60 years or older (1 - 1-dose 75+ series) 2048 Hepatitis C Screening Completed 12/31/2023 HIB Vaccines Aged Out No longer eligi ble based on patient's age to complete this topic HPV Vaccines Aged Out No longer eligi ble based on patient's age to complete this topic Hepatitis A Vaccines Aged Out No long er eligible based on patient's age to complete [...] Author Blood Pressure < 140/90 Blood Pressure 136/84(2024 3:49 PM EST) No Vijay Lundberg, PharmD Smoking cessation General No Vijay Lundberg, PharmD Procedures Procedure Name Priority Date/Time Associated Diagnosis Comments HEPATITIS C VIRAL RNA, QUANTITATIVE, REAL-TIME PCR Routine 12/31/2023 8:18 AM EST Mixed hyperlipidemia Essential hypertension LIPID PANEL, STANDARD Routine 12/31/2023 8:18 AM EST Mixed hyperlipidemia Essential hypertension from Last 3 Months or Most Recently Relevant to Health Maintenance Results * Hepatitis C Viral RNA, Quantitative, Real-Time PCR (12/31/2023 8:18 AM EST) Hepatitis C Viral Load <15 NOT DETECTED NOT DETECTED IU/mL [facility] HCV Log PCR <1.18 NOT DETECTED NOT DETECTED Log IU/mL [facility] Comment:For additional infor rm, please refer tohttp://education.[employer]/faq/DOR58s7(This link is being provided for informational/educational purposes only.)THIS TEST WAS PERFORMED AT:[facility] [place] [id number] CAM MD Blood Venous blood specimen / Unknown 12/31/2023 8:18 AM EST 12/31/2023 2:50 PM EST us Maddy Malave MD LAB BLOOD ORDERABLES Final Result [facility] [address] [place] [phone] * (ABNORMAL) Lipid Panel, Standard (12/31/2023 8:18 AM EST) Triglycerides 523(H) <150 mg/dL [facility] Comment:Slight Lipemia.[place] able Triglyceride: less than 150 mg/dLBorderline High Triglyceride 150-199 mg/dLHigh Triglyceride: 200-499 mg/dLVery High Triglyceride: greater than or equal to 5OO mg/dL Cholesterol 289(H) <200 mg/dL [facility] Comment:Desirable Cholestero l: less than 200 mg/dLBorderline High Cholesterol: 200-239 mg/dLHigh Cholesterol: greater than 239 mg/dL LDL Cholesterol Calculated TNP <100 mg/dL [facility] Comment:Unable to calculate the LDL. The formula of Friedwald,Bui, and Talita is only valid if the triglycerides areless than 400 mg/dl. HDL Cholesterol 15(L) >40 mg/dL [facility] Comment:Desirable HDL: great er than 40 mg/dL Note: This HDL assay may give artificially low results in patients with liver disease. Blood Venous blood specimen / Unknown 12/31/2023 8:18 AM EST 12/31/2023 2:50 PM EST us Maddy Malave MD LAB BLOOD ORDERABLES Final Result [facility] [address] [place] [address] [phone] from Last 3 Months or Most Recently Relevant to Health Maintenance [place] [address] [place] [address] C3 Care Teams Certified Vehicle Fire Investigator Relationship Specialty Start Date End Date Maddy Malave MD [address] [place] [address] PCP - General Internal Medicine 09/26/13 Vijay Lundberg, PharmD [address] [place] [address] Pharmacist Internal Medicine 02/03/22
--- OUTSIDE RECORDS SUMMARY | 2024-06-29 16:01 | XMS_ITS | Encounter Summary ---
Author Organization [employer] Address [address] [facility] 7t [place] [address] Care Team Providers Care Police Or Patrol Park Officer Name Role Phone Maddy Malave MD Primary Care Provider Vijay Lundberg PharmD Unavailable Unavail able Encounter Details Date Type Department Care Team ([facility] Contact Info) Description 09/11/2022 Orders Only [facility] MED & PEDS [address] [place] [address] Maddy Malave MD 505 [place] [address] Chronic left shoulder pain (Primary Dx) Social History Tobacco Use Types Packs/Day Years Used Date Smoking Tobacco: Some Days Cigarettes 0.3 48.3 Started: 1978 Smokeless Tobacco: Never Comments:Smoking [id number], o nly smoking 1-2cig/day, currently 0 Alcohol [...] Upcoming Encounters Date Type Department Care Team ([facility] Contact Info) Description 07/14/2024 3:15 PM EDT Office Visit [facility] MED & PEDS [address] [place] [address] Maddy Malave MD [address] [place], [place] [phone] documented as of this encounter Goals Goal Patient Goal Type Associated Problems Recent Progress Patient-Stated? Author Blood Pressure < 140/90 Blood Pressure 136/84(2024 3:49 PM EST) No Vijay Lundberg, PharmBrandon Smoking cessation General No Vijay Lundberg PharmD documented as of this encounter Visit Diagnoses Diagnosis Chronic left shoulder pain- Primary Pain in joint, shoulder region documented in this encounter Care Teams Police Or Patrol Park Officer Relationship Specialty Start Date End Date Maddy Malave MD [address] [place] [address] PCP - General Internal Medicine 09/26/13 Vijay Lundberg, PharmD 505 [place] [address] Pharmacist Internal Medicine 02/03/22 documented as of this encounter
--- OUTSIDE RECORDS SUMMARY | 2024-06-29 16:01 | XMS_ITS | Encounter Summary ---
Author Organization [employer] Address [address] [facility] 7[address] [place] [address] Care Team Providers Care Towel Hemmer Name Role Phone Maddy Malave MD Primary Care Provider Vijay Lundberg PharmD Unavailable Unavail able Encounter Details Date Type Department Care Team (Late Contact Info) Description 11/12/2022 Orders Only [facility] MED & PEDS [address] [place] [address] Maddy Malave MD [address] [place] [address] Social History Tobacco Use Types Packs/Day Years Used Date Smoking Tobacco: Some Days Cigarettes 0.3 48.3 Started: 1978 Smokeless Tobacco: Never Comments:Smoking [id number], o nly smoking 1-2cig/day, currently 0 Alcohol [...] Department Care Team (Late Contact Info) Description 07/14/2024 3:15 PM EDT Office Visit [facility] MED & PEDS [address] [place] [address] Maddy Malave MD [address] [place] [address] documented as of this encounter Goals Goal Patient Goal Type Associated Problems Recent Progress Patient-Stated? Author Blood Pressure < 140/90 Blood Pressure 136/84(2024 3:49 PM EST) No Vijay Lundberg, PharmBrandon Smoking cessation General No Vijay Lundberg PharmD documented as of this encounter Visit Diagnoses Not on filedocumented in this encounter Care Teams Towel Hemmer Relationship Specialty Start Date End Date Maddy Malave MD [address] [place] [address] PCP - General Internal Medicine 09/26/13 Vijay Lundberg PharmD 505 [place] [address] Pharmacist Internal Medicine 02/03/22 documented as of this encounter
== END 2024-06-29 16:06 | disposition home or self-care (01) ==
LOC: HO.HCS 14:58
PROVIDERS: PCP Internal Medicine; Visit Provider Internal Medicine Cardiovascular Disease
DX: I25.10 Atherosclerotic heart disease of native coronary artery without angina pectoris (principal); Z98.61 Coronary angioplasty status; E78.5 Hyperlipidemia, unspecified
CPT/HCPCS: 93010; 99214

== ENCOUNTER → 2024-06-29 14:57 | Outpatient (BNVA) | payer MEDICAID, SELFPAY | PROVIDERS: PCP Internal Medicine; Visit Provider Internal Medicine Cardiovascular Disease | DX: I25.10 Atherosclerotic heart disease of native coronary artery without angina pectoris (principal); F17.210 Nicotine dependence, cigarettes, uncomplicated; E78.5 Hyperlipidemia, unspecified; Z98.61 Coronary angioplasty status | CPT/HCPCS: 93005; 99212 ==

== ENCOUNTER 2024-10-18 16:20 | Outpatient (REF) | payer MEDICAID, SELFPAY ==
--- OUTSIDE RECORDS SUMMARY | 2024-10-18 16:00 | XMS_ITS | Encounter Summary ---
Author Organization [employer] Address [address] [place] [address] 7t [place] [address] Care Team Providers Care Manager Treasury Name Role Phone Maddy Malave MD Primary Care Provider [phone]- [phone] Vijay Lundberg PharmD Unavailable Unavail able Reason for Referral * Consultation (Routine) - Authorized Specialty Diagnoses / Procedures Referred By Candelario simpson Referred To Contact Addiction Medicine Diagnoses Alcohol use disorder Maddy Malave MD [address] [place] [address] Phone: tel: fax: Referral ID Status Reason Start Date Expiration Date Visits Requested Visits Authorized [id number] Authorized Specialty Services Required 10/18/2024 10/18/2025 1 1 Encounter Details Date Type Department Care Team ([facility] st Contact Info) Description 10/18/2024 4:00 PM EDT Office Visit [facility] MED & PEDS [address] [place] [address] Maddy Malave MD 505 [place] [address] Paronychia of great toe of right foot (Primary Dx); Essential hypertension; Mixed hyperlipidemia; Alcohol use disorder; Toe web intertrigo Social History Tobacco Use Types Packs/Day Years Used Date Smoking Tobacco: Some Days Cigarettes 0.3 48.6 Started: 1978 Smokeless Tobacco: Never Comments:Smoking [id number], o nly smoking 1-2cig/day, currently 0 Alcohol [...] Answer Date Recorded Patient Health Questionnaire-9 Score 2 10/18/2024 Patient Health Questionnaire-9 Score 2 10/18/2024 Last PHQ-9: Questionnaire Data Not on file 0 10/18/2024 Housing Stability Answer Date Recorded What is [...] Date Recorded Patient Health Questionnaire-2 Score 0 10/18/2024 Internet Access Answer Date Recorded Internet Access [...] Sign Reading Time Taken Comments Blood Pressure 135/81 10/18/2024 3:28 PM EDT Pulse 61 10/18/2024 3:28 PM EDT Temperature 36.8 C (98.2 F) 10/18/2024 3:28 PM EDT Respiratory Rate 20 10/18/2024 3:28 PM EDT Oxygen Saturation 95% 10/18/2024 3:28 PM EDT Inhaled Oxygen Concentration - - Weight 100 kg (221 lb) 10/18/2024 3:28 PM EDT Height 162.6 cm (5' 4 ) 10/18/2024 3:28 PM EDT Body Mass Index 37.93 10/18/2024 3:28 PM EDT documented in this encounter Functional Status * Over the past 2 weeks, how often have you been bothered by any of the following problems? Question Answer Date of Assessment Author Patient Health Questionnaire-2 Score 0 09/24 3:54 PM EDT Radha Gao MA * Little interest or pleasure in doing things Answer Date of Assessment Author Not at all 10/18/2024 3:54 PM EDT Christo Gao MA * Feeling down, depressed, or hopeless Answer Date of Assessment Author Not at all 10/18/2024 3:54 PM EDT Christo Gao MA * Trouble falling or staying asleep, or sleeping too much Answer Date of Assessment Author Not at all 10/18/2024 3:54 PM EDT Christo Gao MA * Feeling tired or having little energy Answer Date of Assessment Author Not at all 10/18/2024 3:54 PM EDT Christo Goa MA * Poor appetite or overeating Answer Date of Assessment Author More than half the days 10/18/2024 3:54 PM EDT Radha Kenyon MA * Feeling bad about yourself - or that you are a failure or have let yourself or your family down Answer Date of Assessment Author Not at all 10/18/2024 3:54 PM EDT Christo Gao MA * Trouble concentrating on things, such as reading the newspaper or watching television Answer Date of Assessment Author Not at all 10/18/2024 3:54 PM EDT Christo Gao MA * Moving or speaking so slowly that other people could have noticed? Or the opposite - being so fidgety or restless that you have been moving around a lot more than usual. Answer Date of Assessment Author Not at all 10/18/2024 3:54 PM EDT Christo Gao MA * Thoughts that you would be better off or hurting yourself in some way Answer Date of Assessment Author Not at all 10/18/2024 3:54 PM EDT Christo Gao MA * Patient Health Questionnaire-9 Score Answer Date of Assessment Author 2 10/18/2024 3:54 PM EDT Christo Gao MA * How difficult have these problems made it for you to do your work, take care of things at home, or get along with other people? Answer Date of Assessment Author Not difficult at all 10/18/2024 3:54 PM EDT Radha Carpio MA documented as of this encounter Progress Notes * Maddy Malave MD - 10/18/2024 4:00 PM EDT SUBJECTIVE Jayy Ortez Jr is a 48 y.o. male who presents for No chief complaint on file.. HPI 1) history of hypertension. Patient is compliant to his current medication. His blood pressure is otherwise at goal at home. No reported headache or blurry vision 2) history of hypercholesterolemia. We discussed some lifestyle changes to be made during the last visit. Patient admits that he is still drinking several nips a day with a large can of 22 ounces of beer at least 4 times a week. 3) has noticed the swelling of the skin around the cuticle of the right big toe nail. Patient has noticed some accumulation of pus 1 area around the cuticle. 4) Mr. Jayy Ortez Jr has also noticed an erythema with some fine scales of his third and fourth right toe webs. Problem List[1] Allergies[2] Medications Ordered Prior to Encounter[3] Review of Systems Constitutional: Negative for appetite change, chills and diaphoresis. Eyes: Negative for photophobia, pain and redness. Respiratory: Negative for cough, choking and shortness of breath. Cardiovascular: Negative for leg swelling. Musculoskeletal: Negative for back pain, gait problem and joint swelling. Skin: Skin lesion OBJECTIVE Vitals: 10/18/24 1528 BP: 135/81 Pulse: 61 Resp: 20 Temp: 98.2 ??F (36.8 ??C) TempSrc: Oral SpO2: 95% Weight: 221 lb (100 kg) Height: 5' 4 (1.626 m) Physical Exam Constitutional: General: He is not in acute distress. Appearance: Normal appearance. He is not ill-appearing, toxic-appearing or diaphoretic. Cardiovascular: Rate and Rhythm: Normal rate. Pulmonary: Effort: Pulmonary effort is normal. Skin: Comments: 1)Erythema/swelling of the cuticle around the right big toe nails with a bullae with pus. 2) mild erythema with fine scales of the 4th and 3rd right toe web. Neurological: Mental Status: He is alert. Assessment/Plan Assessment/Plan Diagnoses and all orders for this visit: Paronychia of great toe of right foot Comments: Soaks with warm salt water for 10 minutes 2 times a day Bactrim as directed Orders: - Wound Culture - sulfamethoxazole-trimethoprim (Bactrim DS) 800-160 MG tablet; Take 1 tablet by mouth 2 times daily for 7 days. Essential hypertension Comments: Controlled No change. Controlled No change. Mixed hyperlipidemia Comments: Lengthy discussion on the need to stop drinking and to avoid refined sugar Alcohol use disorder - Referral to CRS Alcohol Use Disease; Future Mr Jayy Ortez Jr appears to be motivated to quit drinking. Toe web intertrigo - econazole nitrate 1 % cream; Apply topically 2 times daily. [1] Patient Active Problem List Diagnosis Allergic rhinitis Essential hypertension Gastroesophageal reflux disease History of cholecystectomy Hyperlipidemia Myocardial infarction (CMS/HCC) Tobacco dependence syndrome Class 2 obesity Colon cancer screening [2] No Known Allergies [3] Current Outpatient Medications on File Prior to Visit Medication Sig Dispense Refill albuterol 108 (90 Base) MCG/ACT inhaler Inhale 2 puffs every 6 (six) hours if needed for wheezing. 18 g 0 Allergy Relief 180 MG tablet TAKE 1 TABLET EVERY MORNING 90 tablet 1 Aspirin [...] TABLET EVERY MORNING 90 tablet 1 varenicline (Chantix) 1 MG tablet TAKE ONE TABLET TWICE DAILY WITH WATER 56 tablet 3 No current facility-administered medications on file prior to visit. documented in this encounter Plan of Treatment Scheduled Orders Name Type Priority Associated Diagnoses Orde r Schedule Wound Culture Microbiology Routine Paronychia of great toe of right foot Ordered: 10/18/2024 Scheduled Referrals Name Type Priority Associated Diagnoses Orde r Schedule Referral to CRS Alcohol Use Disease Outpatient Referral Routine Alcohol use disorder Expected: 10/18/2024 (Approximate), Expires: 10/18/2025 documented as of this encounter Goals Goal Patient Goal Type Associated Problems Recent Progress Patient-Stated? Author Blood Pressure < 140/90 Blood Pressure 135/81(2024 3:28 PM EDT) No Vijay Lundberg, PharmD Smoking cessation General No Vijay Lundberg, PharmD documented as of this encounter Visit Diagnoses Diagnosis Paronychia of great toe of right foot- Primary Essential hypertension Unspecified essential hypertension Mixed hyperlipidemia Alcohol use disorder Toe web intertrigo documented in this encounter Additional Health Concerns Assessment Noted Time PHQ-9 Depression Total Score: 2 10/19/19 3:54 PM EDT documented as of this encounter Care Teams Manager Treasury Relationship Specialty Start Date End Date Maddy Malave MD [address] [place] [address] PCP - General Internal Medicine 09/26/13 Vijay Lundberg, MaggieD [address] [place] [address] Pharmacist Internal Medicine 02/03/22 documented as of this encounter
--- OUTSIDE RECORDS SUMMARY | 2024-10-18 16:51 | XMS_ITS | Encounter Summary ---
Author Organization [employer] Address [address] 7t [place] [address] Care Team Providers Care Skiver Box Toe Name Role Phone Maddy Malave MD Primary Care Provider [phone]- [phone] Vijay Lundberg PharmD Unavailable Unavail able Encounter Details Date Type Department Care Team (Latest Contact Info) Description 10/18/2024 Travel Social History Tobacco Use Types Packs/Day Years Used Date Smoking Tobacco: Some Days Cigarettes 0.3 48.6 Started: 1978 Smokeless Tobacco: Never Comments:Smoking [id number], o nly smoking 1-2cig/day, currently 0 Alcohol [...] AM EDT documented as of this encounter Functional Status * Over the [...] 3:54 PM EDT Christo Gao MA * Poor appetite or overeating Answer [...] Carpio MA documented as of this encounter Plan of Treatment Not on file documented as of this encounter Goals Goal Patient Goal Type Associated Problems Recent Progress Patient-Stated? Author Blood Pressure < 140/90 Blood Pressure 135/81(2024 3:28 PM EDT) No Vijay Lundberg, PharmD Smoking cessation General No Vijay Lundberg, PharmD documented as of this encounter Visit Diagnoses Not on filedocumented in this encounter Additional Health Concerns Assessment Noted Time PHQ-9 Depression Total Score: 2 10/19/19 25 3:54 PM EDT documented as of this encounter Care Teams Skiver Box Toe Relationship Specialty Start Date End Date Maddy Malave MD 505 [facility] [address] PCP - General Internal Medicine 09/26/13 Vijay Lundberg, PharmD 505 [facility] [address] Pharmacist Internal Medicine 02/03/22 documented as of this encounter
--- OUTSIDE RECORDS SUMMARY | 2024-10-18 16:51 | XMS_ITS | Clinical Summary ---
Author Organization [employer] Address [address] [facility] 7t [place] [address] Care Team Providers Care Tool Room Lathe Operator Name Role Phone Maddy Malave MD Primary Care Provider [phone]- [phone] Vijay Lundberg PharmD Unavailable Unavail able Allergies No known active allergies Medications azelastine (Astelin) 0.1 % nasal spray spray 2 spray by intranasal route 2 times every day in each nostril 2 Active nicotine polacrilex (Commit) 2 MG lozenge Take 1 tablet by mouth. Every 2 hours dissolved slowly in the mouth as needed Active disulfiram (Antabuse) 250 MG tabletIndications :Alcohol use disorder Take 1 tablet (250 mg) by mouth in the morning. 30 tablet 3 3 Active fluticasone (Flonase) 50 MCG/ACT nasal sprayIndications: Sinus congestion SPRAY 1-2 SPRAYS INTO EACH NOSTRIL ONCE DAILY IN THE MORNING 48 g 4 Active atorvastatin (Lipitor) 80 MG tablet TAKE ONE TABLET EVERY EVENING 90 tablet 3 4 Active fenofibrate micronized (Antara) 130 MG capsuleIndication s:Hypertriglyceri demia TAKE ONE CAPSULE EVERY MORNING WITH BREAKFAST 90 capsule 3 4 Active Ketotifen Fumarate 0.035 % solutionIndicatio ns:Seasonal allergies PLACE TWO DROPS IN THE AFFECTED EYE(S) ONCE DAILY 5 mL 4 Active albuterol 108 (90 Base) MCG/ACT inhalerIndication s:Acute cough,Bronchitis Inhale 2 puffs every 6 (six) hours if needed for wheezing. 18 g 5 03/02/19 26 Active Diclofenac Sodium 1 % gelIndications:Ch ronic left shoulder pain,Muscle spasm APPLY 2 GRAM'S TO AFFECTED AREA(s) TWICE DAILY NEEDED 100 g 5 Active Aspirin Adult Low Strength 81 MG EC tablet TAKE ONE TABLET EVERY MORNING 90 tablet 1 5 Active pantoprazole (ProtoNix) 40 MG EC tablet TAKE ONE TABLET EVERY MORNING 90 tablet 1 5 Active varenicline (Chantix) 1 MG tabletIndications :Tobacco dependence syndrome TAKE ONE TABLET TWICE DAILY WITH WATER 56 tablet 3 5 Active Allergy Relief 180 MG tabletIndications :Allergic rhinitis due to other allergic trigger, unspecified seasonality TAKE 1 TABLET EVERY MORNING 90 tablet 1 5 Active lisinopril-hydroC HLOROthiazide 20-12.5 MG tabletIndications :Primary hypertension TAKE ONE TABLET EVERY MORNING 90 tablet 1 5 Active metoprolol succinate XL (Toprol-XL) 100 MG 24 hr tabletIndications :Primary hypertension TAKE ONE TABLET EVERY MORNING 90 tablet 1 5 Active sulfamethoxazole- trimethoprim (Bactrim DS) 800-160 MG tabletIndications :Paronychia of great toe of right foot Take 1 tablet by mouth 2 times daily for 7 days. 14 tablet 5 10/26/19 Active econazole nitrate 1 % creamIndications: Toe web intertrigo Apply topically 2 times daily. 30 g 5 10/19/19 Active Active Problems Problem Noted Date Diagnosed Date Colon cancer screening 11/06/2023 Class 2 obesity 05/28/2022 Myocardial infarction 01/13/2022 Essential hypertension 06/24/2016 Hyperlipidemia 01/12/2013 Allergic rhinitis 11/23/2012 Gastroesophageal reflux disease 11/23/2012 History of cholecystectomy 11/23/2012 Tobacco dependence syndrome 11/23/2012 Encounters Date Type Department Care Team Description 10/18/2024 4:00 PM EDT Office Visit [facility] MED & PEDS [address] [place] [address] Maddy Malave MD Paronychia of great toe of right foot (Primary Dx); Essential hypertension; Mixed hyperlipidemia; Alcohol use disorder; Toe web intertrigo 10/18/2024 Travel 10/17/2024 Telephone [facility] MED & PEDS [address] [place] [address] Maddy Malave MD chart prep 10/11/2024 Travel 09/14/2024 Refill [facility] MED & PEDS [address] [facility] [place] [address] Maddy Malave MD Primary hypertension from Last 3 Months Immunizations Immunization Administration Dates Next Due Influenza, Split (incl. purified surface antigen ) 11/23/2012 TD (adult), 2 Lf tetanus tox oid, preservative free, adsorbed 05/08/2002 Tdap 03/01/2015 Social History Tobacco Use Types Packs/Day Years Used Date Smoking Tobacco: Some Days Cigarettes 0.3 48.6 Started: 1978 Smokeless Tobacco: Never Tobacco Cessation:Ready to Q uit: Yes; Counseling Given: Yes Comments:Smoking [id number], only smoking 1-2cig/day, currently 0 Alcohol Use [...] Mass Index 37.93 10/18/2024 3:28 PM EDT Plan of Treatment Health Maintenance Due Date Last Done Comments [...] 2) 12/29/2023 Influenza Vaccine (#1) 2024 11/23/2012 Alcohol/Substance Use Screening 12/30/2024 12/31/2023 DTaP/Tdap/Td Vaccines (2 - Td or Tdap) 03/01/2025 03/01/2015, 05/08/2002 COVID-19 Vaccine ( season) 2025 Postponed from 10/25/2023 (Patient Refused) SDOH Screening 04/14/2025 04/14/2024 Tobacco Screening 07/14/2025 07/14/2024 Disability Screening 10/11/2025 10/11/2024 Depression Screening 10/18/2025 10/18/2024, 10/19/19 Lipid Panel 12/30/2028 12/31/2023, 10/24, 02/03/2022, Additional [...] patient's age to complete this topic Meningococcal B Vaccine Aged Out No l onger eligible based on patient's age to complete [...] Load <15 NOT DETECTED NOT DETECTED IU/mL [facility] HCV Log PCR <1.18 NOT DETECTED NOT DETECTED Log IU/mL [facility] Comment:For additional infor rm, please refer tohttp://education.[employer]/faq/WNT41y9(This link is being provided for informational/educational purposes only.)THIS TEST WAS PERFORMED AT:[employer] [place] [phone] CAM MD Blood Venous blood specimen / Unknown 12/31/2023 8:18 AM EST 12/31/2023 2:50 PM EST Maddy Malave MD LAB BLOOD ORDERABLES Final Result [facility] [address] [place] [address] [phone] * (ABNORMAL) Lipid Panel, Standard (12/31/2023 8:18 AM EST) Pathologist [facility] Triglycerides 523(H) <150 mg/dL [facility] Comment:Slight Lipemia.[place] able Triglyceride: less than 150 mg/dLBorderline High Triglyceride 150-199 mg/dLHigh Triglyceride: 200-499 mg/dLVery High Triglyceride: greater than or equal to 5OO mg/dL Cholesterol 289(H) <200 mg/dL [facility] Comment:Desirable Cholestero l: less than 200 mg/dLBorderline High Cholesterol: 200-239 mg/dLHigh Cholesterol: greater than 239 mg/dL LDL Cholesterol Calculated TNP <100 mg/dL [facility] Comment:Unable to calculate the LDL. The formula of Friedwald,Bui, and Talita is only valid if the triglycerides areless than 400 mg/dl. HDL Cholesterol 15(L) >40 mg/dL [facility] Comment:Desirable HDL: great er than 40 mg/dL Note: This HDL assay may give artificially low results in patients with liver disease. Blood Venous blood specimen / Unknown 12/31/2023 8:18 AM EST 12/31/2023 2:50 PM EST Maddy Malave MD LAB BLOOD ORDERABLES Final Result [facility] [address] [place] [address] [phone] from Last 3 Months or Most Recently Relevant to Health Maintenance Insurance [employer] C[employer] Care Teams Tool Room Lathe Operator Relationship Specialty Start Date End Date Maddy Malave MD [address] [place] [address] PCP - General Internal Medicine 09/26/13 Vijay Lundberg PharmD [address] [place] [phone] Pharmacist Internal Medicine 02/03/22
--- OUTSIDE RECORDS SUMMARY | 2024-10-18 16:51 | XMS_ITS | Encounter Summary ---
Author Organization [employer] Address [address] [facility] 7t [place] [address] Care Team Providers Care Treatment Technician Name Role Phone Maddy Malave MD Primary Care Provider +1- [phone] DelVijay marin PharmD Unavailable Unavail able Encounter Details Date Type Department Care Team (Late st Contact Info) Description 09/11/2022 Orders Only [facility] MED & PEDS [address] [place], [place] [phone] Maddy Malave MD [address] [place] [address] Chronic left shoulder pain (Primary Dx) Social History Tobacco Use Types Packs/Day Years Used Date Smoking Tobacco: Some Days Cigarettes 0.3 48.6 Started: 1978 Smokeless Tobacco: Never Comments:Smoking [id number], o nly smoking 1-2cig/day, currently 0 Alcohol [...] Blood Pressure 135/81(2024 3:28 PM EDT) No Dellogono, Vijay, PharmD Smoking cessation General No Dellogono, Vijay, PharmD documented as of this encounter Visit Diagnoses Diagnosis Chronic left shoulder pain- Primary Pain in joint, shoulder region documented in this encounter Care Teams Treatment Technician Relationship Specialty Start Date End Date Maddy Malave MD [address] [facility] [place] [address] PCP - General Internal Medicine 09/26/13 Vijay Lundberg PharmD [address] [facility] [place] [address] Pharmacist Internal Medicine 02/03/22 documented as of this encounter
--- OUTSIDE RECORDS SUMMARY | 2024-10-18 16:51 | XMS_ITS | Encounter Summary ---
Author Organization [employer] Address [address] [facility] 7t [place] [address] Care Team Providers Care Timekeeper Supervisor Name Role Phone Maddy Malave MD Primary Care Provider +1- [phone] DelVijay marin PharmD Unavailable Unavail able Encounter Details Date Type Department Care Team (Late st Contact Info) Description 11/12/2022 Orders Only [facility] MED & PEDS [address] [place], [place] [phone] Maddy Malave MD [address] [place] [address] Social History Tobacco Use Types Packs/Day Years Used Date Smoking Tobacco: Some Days Cigarettes 0.3 48.6 Started: 1978 Smokeless Tobacco: Never Comments:Smoking [id number], o nly smoking 1-2cig/day, currently 0 Alcohol [...] on filedocumented in this encounter Care Teams Timekeeper Supervisor Relationship Specialty Start Date End Date Maddy Malave MD 505 [facility] [place] [address] PCP - General Internal Medicine 09/26/13 Vijay Lundberg PharmD [address] [facility] [place] [address] Pharmacist Internal Medicine 02/03/22 documented as of this encounter
--- OUTSIDE RECORDS SUMMARY | 2024-10-18 16:51 | XMS_ITS | Encounter Summary ---
Author Organization [employer] Address [address] [facility] 7t [place] [address] Care Team Providers Care Cow Trimmer Name Role Phone Maddy Malave MD Primary Care Provider +1- [phone] Vijay Lundberg PharmD Unavailable Unavail able Reason for Visit * Reason Onset Date Comments chart prep 10/17/2024 Encounter Details Date Type Department Care Team ([facility] st Contact Info) Description 10/17/2024 Telephone [facility]S [address] [place], [place] [phone] Maddy Malave MD [address] [place] [address] chart prep Social History Tobacco Use Types Packs/Day Years Used Date Smoking Tobacco: Some Days Cigarettes 0.3 48.6 Started: 1978 Smokeless Tobacco: Never Comments:Smoking [id number], o nly smoking 1-2cig/day, currently 0 Alcohol [...] AM EDT documented as of this encounter Miscellaneous Notes * Telephone Encounter - Kristyn Ron RN - 10/17/2024 2:34 PM EDT Chart Prep Labs: done Images: not applicable Referrals: not applicable Vaccines due: PCV20, Hep B, and Zoster Screenings: colonoscopy and STI screening Overdue care gaps: PHQ-9 documented in this encounter Plan of Treatment Not on [...] documented as of this encounter Care Teams Cow Trimmer Relationship Specialty Start Date End Date Maddy Malave MD [address] [facility] [place] [address] PCP - General Internal Medicine 09/26/13 Vijay Lundberg PharmD [address] [facility] [place] [address] Pharmacist Internal Medicine 02/03/22 documented as of this encounter
== END 2024-10-18 16:21 | disposition home or self-care (01) ==
LOC: HO.CHCLNP 16:20
PROVIDERS: Visit Provider Internal Medicine
DX: L03.031 Cellulitis of right toe (principal)
CPT/HCPCS: 87070; 87077; 87147; 87186; 87205

== ENCOUNTER 2025-01-02 14:50 | Outpatient (AMB) | payer MEDICAID, SELFPAY ==
[2025-01-02 15:09] VITALS: BP 130/72; PULSE 63; BMI 38.1
--- NOTE | 2025-01-02 15:09 | A.OFFVIS_ITS ---
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 Required: No Allergies No Known Allergies (No Known Allergies*) Allergy (Verified 01/02/25 15:11) Medication List - Last Reconciled 01/02/25 by Sabina Hernández NP-C aspirin 81 mg PO DAILY atorvastatin 80 mg PO BEDTIME fenofibrate micronized 130 mg PO QAM fexofenadine 180 mg PO DAILY fluticasone propionate 50 mcg/actuation 1 spray intranasal DAILY ketotifen fumarate 0.025%(0.035%) 2 drps ophthalmic (eye) DAILY lisinopril-hydrochlorothiazide 20-12.5 mg 1 tab PO QAM metoprolol succinate ER 100 mg PO QAM omega-3 acid ethyl esters (Lovaza) 1 cap PO BID pantoprazole 40 mg PO DAILY HPI HPI f/u: Details: Jayy is a 49-year-old male with past medical history of obesity, hyperlipidemia, smoking, inferior STEMI 04/2021 with cardiac catheterization showing occluded mid RCA and BEN placed. He now presents for follow-up. Today he reports that he has been doing well since his last visit in June. He has no cardiac concerns or questions. He denies chest discomfort, shortness of breath, palpitations, lightheadedness, edema. He tells me he quit smoking. Taking all medications as directed. He is due for blood work and states he will obtain soon. 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 He does no routine exercise otherwise. 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 Review of Systems Const All systems reviewed & are unremarkable except as noted in HPI and below ENT Denies dizziness Card Denies chest pain, Denies chest pain at rest, Denies chest pain with activity, Denies rapid heart rate, Denies pedal edema, Denies edema, Denies leg edema, Denies lightheadedness, Denies palpitations, Denies dyspnea, Denies dyspnea on exertion and Denies orthopnea Resp Denies cough, Denies dyspnea and Denies dyspnea on exertion GI Denies hematochezia and Denies change in stool character Musc Denies abnormal gait, Denies limited range of motion, Denies muscle cramps, Denies muscle weakness, Denies numbness, Denies radiating pain into limb, Denies stiffness and Denies tingling Neuro Denies abnormal gait, Denies dizziness, Denies numbness and Denies tingling Endo Denies palpitations Physical Exam Vital Signs: Last Vital Signs Pulse 63 01/02/25 15:09 BP 130/72 01/02/25 15:09 BMI result Body Mass Index 38.1 Const General: cooperative, healthy appearing, comfortable and no acute distress Orientation/consciousness: patient oriented x3 Neck Neck: Yes normal visual inspection Resp Effort & Inspection: normal respiratory effort Auscultation: clear to auscultation bilaterally, no rales, no rhonchi and no wheezes Cardio Rate: regular rate Rhythm: regular rhythm Heart sounds: S1 normal heart sound present, S2 normal heart sound present, no gallops, no murmurs and no rubs Neuro General: patient oriented x3 Extrem General: Yes normal to inspection, No no pedal edema and No calf tenderness Psych Appearance: grossly normal Mental Status: mental status grossly normal Speech and movement: Normal speech and movement present Assessment & Plan Assessment & Plan (1) Coronary artery disease: Code(s): I25.10 - Atherosclerotic heart disease of [place] coronary artery without angina pectoris Category: Medical Plan: Inferior STEMI 04/2021 with catheterization showing occluded mid RCA, BEN placed. Echo done at [facility] 05/23/2021 shows EF 50-60%, basal inferior wall juan netic, no significant valve abnormalities. Currently no anginal symptoms. Continue aspirin indefinitely. Continue atorvastatin, [place] 3, fenofibrate for LDL goal less than 70 and triglyceride goal less than 150. Continue metoprolol, lisinopril/hydrochlorothiazide for good heart rate and blood pressure control. Applauded on smoking cessation. Benefits a weight loss discussed. Increase physical activity as tolerated. Cardiology follow-up 6 months, sooner if needed (2) S/P coronary angioplasty: Comment: BEN to the mid RCA 05/22/2021 Code(s): Z98.61 - Coronary angioplasty status Category: Surgical Plan: As above (3) Hyperlipidemia: Code(s): E78.5 - Hyperlipidemia, unspecified Category: Medical Plan: LDL goal less than 70, triglyceride goal less than 150. Labs 12/31/2023 showed triglycerides 523. He has been on [place] 3, atorvastatin and fenofibrate. He is due for updated fasting lipids, CMP. Orders placed and reminded to obtain. (4) History of cardiac cath: Comment: 05/22/2021 left main normal, lad minimal luminal irregularities, left circumflex minimal luminal irregularities, RCA mid 100% stenosis, BEN placed Code(s): Z98.890 - Other specified postprocedural states Category: Surgical Plan: As above Plan Time spent on chart review, documentation, interview and assessment Orders: Orders Comprehensive [place]. Panel Fast Today I25.10 - Atherosclerotic heart disease of [place] coronary artery without angina pectoris, Z98.61 - Coronary angioplasty status Lipid Panel Today I25.10 - Atherosclerotic heart disease of [place] coronary artery without angina pectoris, Z98.61 - Coronary angioplasty status Complete Blood Count Auto Diff Today I25.10 - Atherosclerotic heart disease of [place] coronary artery without angina pectoris, Z98.61 - Coronary angioplasty status Coding Level of Care Code Est Pt Level 4 (47380) Complex EM visit Add On G2211 Diagnoses Coronary artery disease I25.10 S/P coronary angioplasty Z98.61 Hyperlipidemia E78.5 History of cardiac cath Z98.890 Time Spent (min) 28
--- OUTSIDE RECORDS SUMMARY | 2025-01-02 17:05 | XMS_ITS | Clinical Summary ---
Author Organization [employer] Address [address] [facility] 7[address] [place] [address] Care Team Providers Care Multi Care Technician Name Role Phone Maddy Malave MD Primary Care Provider +1- [phone] Vijay Lundberg PharmD Unavailable Unavail able Allergies Active Allergy Reactions Criticality Noted Date Comments Grass Pollen(K-O-R-T-Swt [place]arez) 12/27 Pollen Extract 12/27/2024 Medications azelastine (Astelin) 0.1 % nasal spray [...] IN THE MORNING 48 g 4 Active Ketotifen Fumarate 0.035 % solutionIndicatio [...] TWICE DAILY NEEDED 100 g 5 Active varenicline (Chantix) 1 MG tabletIndications [...] EVERY MORNING 90 tablet 1 5 Active econazole nitrate 1 % creamIndications: Toe web intertrigo Apply topically 2 times daily. 30 g 5 10/19/19 26 Active Aspirin Adult Low Strength 81 MG EC tablet TAKE ONE TABLET EVERY MORNING 90 tablet 1 5 Active atorvastatin (Lipitor) 80 MG tablet TAKE ONE TABLET EVERY EVENING 90 tablet 3 5 Active pantoprazole (ProtoNix) 40 MG EC tablet TAKE ONE TABLET EVERY MORNING 90 tablet 1 5 Active fenofibrate micronized (Antara) 130 MG capsuleIndication s:Hypertriglyceri demia TAKE ONE CAPSULE EVERY MORNING WITH BREAKFAST 90 capsule 3 5 Active omega-3 acid ethyl esters (Lovaza) 1 g capsule TAKE ONE CAPSULE IN THE MORNING AND EVENING 5 Active Active Problems Problem Noted Date Diagnosed Date Colon cancer screening 11/06/2023 Class 2 obesity 05/28/2022 Myocardial infarction 01/13/2022 Essential hypertension 06/24/2016 Hyperlipidemia 01/12/2013 Allergic rhinitis 11/23/2012 Gastroesophageal reflux disease 11/23/2012 History of cholecystectomy 11/23/2012 Tobacco dependence syndrome 11/23/2012 Encounters Date Type Department Care Team Description 12/27/2024 2:30 PM EST Office Visit [facility] [address] [place] [address] Magdaleno Khoury DDS 12/15/2024 2:30 PM EDT Office Visit [facility] [address] [place] [address] Magdaleno Khoury DDS 12/01/2024 3:00 PM EDT Office Visit [facility] [address] [place] [address] Magdaleno Khoury, DDS 11/17/2024 3:00 PM EDT Office Visit [facility] [address] [place] [address] Magdaleno Khoury, DDS 11/15/2024 Refill [facility] [address] [place] [phone] Maddy Malave MD Hypertriglyceridemia 11/02/2024 8:30 AM EDT Office Visit [facility] [address] [place] [address] Magdaleno Khoury, DDS 11/01/2024 Travel 10/20/2024 Results Follow-Up [facility] [address] [place] [address] Kinga Hung RN Gram Stain Result 10/20/2024 Orders Only [facility] [address] [place] [phone] Maddy Malave MD 10/18/2024 4:00 PM EDT Office Visit [facility] [address] [place] [address] Maddy Malave MD Paronychia of great toe of right foot (Primary Dx); Essential hypertension; Mixed hyperlipidemia; Alcohol use disorder; Toe web intertrigo 10/18/2024 Travel 10/17/2024 Telephone [facility] [address] [place] [address] Maddy Malave MD chart prep 10/11/2024 Travel from Last 3 Months Immunizations Immunization Administration Dates Next Due Influenza, Split (incl. purified surface antigen ) 11/23/2012 TD (adult), 2 Lf tetanus tox oid, preservative free, adsorbed 05/08/2002 Tdap 03/01/2015 Social History Tobacco Use Types Packs/Day Years Used Date Smoking Tobacco: Some Days Cigarettes 0.3 48.9 Started: 1976 Smokeless Tobacco: Never Tobacco Cessation:Ready to Q uit: Not Asked; Counseling Given: Not Answered Comments:Smoking [id number], only smoking 1-2cig/day, currently 0 Alcohol Use [...] 1973 Colonoscopy 1973 Colorectal Cancer Screening 1973 Dental Prophylaxis 1973 FIT DNA/Cologuard 1973 FIT 1973 FOBT 1973 HIV Screening 1973 Sigmoidoscopy 1973 Alcohol/Substance Use Screening 1985 Family Planning (PISQ) 1988 Hepatitis B Vaccines (1 of 3 - 19+ 3-dose series) 1992 Pneumococcal Vaccine: 50+ Years (1 of 2 - PCV) 1992 Dental X-Ray: Bitewings 09/13/2015 09/11/2014 Zoster Vaccines (1 of 2) 12/29/2023 COVID-19 Vaccine (1 - season) 2024 Influenza Vaccine (#1) 2024 11/23/2012 DTaP/Tdap/Td Vaccines (2 - Td or Tdap) 03/01/2025 03/01/2015, 05/08/2002 SDOH Screening 04/14/2025 04/14/2024 Dental Oral Exam 05/03/2025 11/02/2024, 09/11/2014 Disability Screening 10/11/2025 10/11/2024 Depression Screening 10/18/2025 10/18/2024, 10/19/19 Tobacco Screening 12/27/2025 12/27/2024 Dental X-Ray: Full Mouth 11/04/2027 11/02/2024, 08/24 Lipid Panel 12/30/2028 12/31/2023, 10/24, 02/03/2022, Additional [...] Vijay Lundberg, PharmD Smoking cessation General No Tamika, Vijay, PharmD Procedures Procedure Name Priority Date/Time Associated Diagnosis Comments Max COMPLETE DENTURE - MAXILLARY Routine 12/27/2024 2:30 PM EST Disha COMPLETE DENTURE - MANDIBULAR Routine 12/27/2024 2:30 PM EST CASE PRESENTATION, DETAILED AND EXTENSIVE TREATMENT PLANNING Routine 12/27/2024 2:30 PM EST WAX TRY IN Routine 12/15/2024 2:30 PM EDT BITE REGISTRATION Routine 12/01/2024 3:0 0 PM EDT DENTURE IMPRESSION Routine 11/17/2024 3: 00 PM EDT PANORAMIC RADIOGRAPHIC IMAGE Routine 11/02/2024 8:30 AM EDT PERIODIC ORAL EVALUATION - ESTABLISHED PATIENT Routine 11/02/2024 8:30 AM EDT DENTURE IMPRESSION Routine 11/02/2024 8: 30 AM EDT 17 EXTRACTION Routine 11/02/2024 12:00 AM EDT 32 EXTRACTION Routine 11/02/2024 12:00 AM EDT 31 EXTRACTION Routine 11/02/2024 12:00 AM EDT 30 EXTRACTION Routine 11/02/2024 12:00 AM EDT 19 EXTRACTION Routine 11/02/2024 12:00 AM EDT 18 EXTRACTION Routine 11/02/2024 12:00 AM EDT 15 EXTRACTION Routine 11/02/2024 12:00 AM EDT 14 EXTRACTION Routine 11/02/2024 12:00 AM EDT 26 EXTRACTION Routine 11/02/2024 12:00 AM EDT 12 EXTRACTION Routine 11/02/2024 12:00 AM EDT 11 EXTRACTION Routine 11/02/2024 12:00 AM EDT 10 EXTRACTION Routine 11/02/2024 12:00 AM EDT 9 EXTRACTION Routine 11/02/2024 12:00 AM EDT 8 EXTRACTION Routine 11/02/2024 12:00 AM EDT 7 EXTRACTION Routine 11/02/2024 12:00 AM EDT 6 EXTRACTION Routine 11/02/2024 12:00 AM EDT 5 EXTRACTION Routine 11/02/2024 12:00 AM EDT 28 EXTRACTION Routine 11/02/2024 12:00 AM EDT 27 EXTRACTION Routine 11/02/2024 12:00 AM EDT 25 EXTRACTION Routine 11/02/2024 12:00 AM EDT 24 EXTRACTION Routine 11/02/2024 12:00 AM EDT 23 EXTRACTION Routine 11/02/2024 12:00 AM EDT 22 EXTRACTION Routine 11/02/2024 12:00 AM EDT 21 EXTRACTION Routine 11/02/2024 12:00 AM EDT 20 EXTRACTION Routine 11/02/2024 12:00 AM EDT GRAM STAIN RESULT (NON ORDERABLE) Routine 10/18/2024 12:00 AM EDT HEPATITIS C VIRAL RNA, QUANTITATIVE, REAL-TIME PCR Routine 12/31/2023 8:18 AM EST Mixed hyperlipidemia Essential hypertension LIPID PANEL, STANDARD Routine 12/31/2023 8:18 AM EST Mixed hyperlipidemia Essential hypertension INTRAORAL - COMPLETE SERIES OF RADIOGRAPHIC IMAGES Routine 09/11/2014 12:00 AM EDT from Last 3 Months or Most Recently Relevant to Health Maintenance Results * Gram Stain Result (10/18/2024 12:00 AM EDT) 10/18/2024 10/18/2024 Comment:Foot Rt Narrative [facility] - 10/20/2024 8:33 AM EDT Gram stain results: No polys 2+ epithelial cells 3+ Gram-positive cocci Staphylococcus aureus Quant Org ID 3+ Coag negative Staphylococcus Quant Org ID 3+ Susc N/A Susceptibility not routinely performed on this isolate. Staphylococcus aureus: Clindamycin <=0.25(S) Staphylococcus aureus: Erythromycin <=0.25(S) Staphylococcus aureus: Levofloxacin 0.25(S) Staphylococcus aureus: Oxacillin 0.5(S) Staphylococcus aureus: Penicillin-G >=0.5(R) Staphylococcus aureus: Tetracycline <=1(S) Staphylococcus aureus: Trimethoprim/Sulfamethoxazole <=10(S) Specimen Source: Foot Right Maddy Malave MD HISTORICAL/NON ORDERABLE LA BS Final Result Performing Organization Address [facility] de Phone Number [facility] [address] [place] [phone] * Hepatitis C Viral RNA, Quantitative, Real-Time PCR (12/31/2023 8:18 AM EST) Hepatitis C Viral Load <15 NOT DETECTED NOT DETECTED IU/mL [facility] HCV Log PCR <1.18 NOT DETECTED NOT DETECTED Log IU/mL [facility] Comment:For additional infor mation, please refer [email or web address].Tapingo/faq/[email or web address](This link is being provided for informational/educational purposes only.)THIS TEST WAS PERFORMED AT:[facility] [employer] [place] [phone] CAM MD Blood Venous blood specimen / Unknown 12/31/2023 8:18 AM EST 12/31/2023 2:50 PM EST us Maddy Malave MD LAB BLOOD ORDERABLES Final Result Performing Organization Address [facility] de Phone Number [facility] [address] [place] [phone] * (ABNORMAL) Lipid Panel, Standard (12/31/2023 8:18 AM EST) Triglycerides 523(H) <150 mg/dL [facility] Comment:Slight Lipemia.Elias able Triglyceride: less than 150 mg/dLBorderline High Triglyceride 150-199 mg/dLHigh Triglyceride: 200-499 mg/dLVery High Triglyceride: greater than or equal to 5OO mg/dL Cholesterol 289(H) <200 mg/dL [facility] Comment:Desirable Cholestero l: less than 200 mg/dLBorderline High Cholesterol: 200-239 mg/dLHigh Cholesterol: greater than 239 mg/dL LDL Cholesterol Calculated TNP <100 mg/dL [facility] Comment:Unable to calculate the LDL. The formula of Friedwald,Bui, and Talita is only valid if the triglycerides areless than 400 mg/dl. HDL Cholesterol 15(L) >40 mg/dL [facility] Comment:Desirable HDL: great er than 40 mg/dL Note: This HDL assay may give artificially low results in patients with liver disease. Blood Venous blood specimen / Unknown 12/31/2023 8:18 AM EST 12/31/2023 2:50 PM EST us Maddy Malave MD LAB BLOOD ORDERABLES Final Result [facility] [address] [place] [address] [phone] from Last 3 Months or Most Recently Relevant to Health Maintenance [place] [address] [place] [address] [id number] STAND ADULT Care Teams Multi Care Technician Relationship Specialty Start Date End Date Maddy Malave MD [address] [facility] [place] [address] PCP - General Internal Medicine 09/26/13 Vijay Lundberg PharmD [address] [facility] [place] [address] Pharmacist Internal Medicine 02/03/22
--- OUTSIDE RECORDS SUMMARY | 2025-01-02 17:05 | XMS_ITS | Encounter Summary ---
Author Organization [employer] Address [address] [facility] 7t [place] [address] Care Team Providers Care Deck Engineer Name Role Phone Maddy Malave MD Primary Care Provider +1- [phone] Vijay Lundberg PharmD Unavailable Unavail able Encounter Details Date Type Department Care Team ([facility] st Contact Info) Description 10/20/2024 Orders Only [facility] [address] [place], [place] [phone] Maddy Malave MD [address] [place] [address] Social History Tobacco Use Types Packs/Day Years Used Date Smoking Tobacco: Some Days Cigarettes 0.3 48.9 Started: 1978 Smokeless Tobacco: Never Comments:Smoking [id number], o nly smoking 1-2cig/day, currently 0 Alcohol [...] Blood Pressure 135/81(2024 3:28 PM EDT) No DelVijay marin, PharmD Smoking cessation General No Vijay Lundberg, PharmD documented as of this encounter Visit Diagnoses Not on filedocumented in this encounter Additional Health Concerns Assessment Noted Time PHQ-9 Depression Total Score: 2 10/19/19 25 3:54 PM EDT documented as of this encounter Care Teams Deck Engineer Relationship Specialty Start Date End Date Maddy Malave MD 505 [facility] [place] [address] PCP - General Internal Medicine 09/26/13 Vijay Lundberg, PharmD [address] [facility] [place] [address] Pharmacist Internal Medicine 02/03/22 documented as of this encounter
--- OUTSIDE RECORDS SUMMARY | 2025-01-02 17:05 | XMS_ITS | Encounter Summary ---
Author Organization [employer] Address [address] [facility] [address] [place] [address] Care Team Providers Care Waterproof Bag Sewer Name Role Phone Maddy Malave MD Primary Care Provider +1- [phone] DelVijay marin PharmD Unavailable Unavail able Encounter Details Date Type Department Care Team (Late st Contact Info) Description 11/12/2022 Orders Only [facility] MED & PEDS [address] [place], [place] [phone] Maddy Malave MD [address] [place] [address] Social History Tobacco Use Types Packs/Day Years Used Date Smoking Tobacco: Some Days Cigarettes 0.3 48.9 Started: 1978 Smokeless Tobacco: Never Comments:Smoking [id number], o nly smoking 1-2cig/day, currently 0 Alcohol [...] on filedocumented in this encounter Care Teams Waterproof Bag Sewer Relationship Specialty Start Date End Date Maddy Malave MD [address] [facility] [place] [address] PCP - General Internal Medicine 09/26/13 Vijay Lundberg PharmD [address] [facility] [place] [address] Pharmacist Internal Medicine 02/03/22 documented as of this encounter
--- OUTSIDE RECORDS SUMMARY | 2025-01-02 17:05 | XMS_ITS | Encounter Summary ---
Author Organization [employer] Address [address] [facility] 7t [place] [address] Care Team Providers Care Wire Harness Design Engineer Name Role Phone Maddy Malave MD Primary Care Provider +1- [phone] DelVijay marin PharmD Unavailable Unavail able Encounter Details Date Type Department Care Team (Late st Contact Info) Description 09/11/[address] [facility] [address] [place], [place] [phone] Maddy Malave MD [address] [place] [address] Chronic left shoulder pain (Primary Dx) Social History Tobacco Use Types Packs/Day Years Used Date Smoking Tobacco: Some Days Cigarettes 0.3 48.9 Started: 1978 Smokeless Tobacco: Never Comments:Smoking [id number], o nly smoking 1-2cig/day, currently 0 Alcohol [...] region documented in this encounter Care Teams Wire Harness Design Engineer Relationship Specialty Start Date End Date Maddy Malave MD 505 [facility] [place] [address] PCP - General Internal Medicine 09/26/13 Vijay Lundberg PharmD [address] [facility] [place] [address] Pharmacist Internal Medicine 02/03/22 documented as of this encounter
== END 2025-01-02 15:39 | disposition home or self-care (01) ==
LOC: HO.HCS 14:51
PROVIDERS: PCP Internal Medicine; Visit Provider Nurse Practitioner Family
DX: I25.10 Atherosclerotic heart disease of native coronary artery without angina pectoris (principal); Z98.61 Coronary angioplasty status; E78.5 Hyperlipidemia, unspecified; Z98.890 Other specified postprocedural states
CPT/HCPCS: 99214

== ENCOUNTER → 2025-01-02 14:50 | Outpatient (BNVA) | payer MEDICAID, SELFPAY | PROVIDERS: PCP Internal Medicine; Visit Provider Nurse Practitioner Family | DX: I25.10 Atherosclerotic heart disease of native coronary artery without angina pectoris (principal); E78.5 Hyperlipidemia, unspecified; Z98.61 Coronary angioplasty status | CPT/HCPCS: 99212 ==